=== PATIENT | female | born 1935 | race Two or more races ===

== ENCOUNTER 2017-09-23 09:03 | Inpatient (IN) | payer OTHER, MEDICARE ==
[~2017-09-23] VITALS: Ht 167.6 cm; Wt 88.0 kg
[2017-09-23] VITALS (37 sets, daily range): BP systolic 69–130; BP diastolic 32–86
--- NOTE | 2017-09-23 09:07 | NUR ---
AAOX1, BIB [facility] FOR SOB X 2 HOURS O2 80% ON 2LNC BS 262 IN FIELD. RR IS SLIGHTLY LABORED WITH NAD NOTED. SKIN IS WARM AND DRY. PLACED ON THE MONITOR. WILL CONTINUOUSLY MONITOR THE PATIENT. AWAITING MD FOR EVAL.
--- NOTE | 2017-09-23 09:24 | NUR ---
EKG AT BS
[2017-09-23] MEDS ORDERED: IV NS 0.9% 1,000 ML BAG IV ONE ×3 (09:30→16:30)
[2017-09-23 09:37] LABS: BASOPHILS % (AUTO) 0.1 % (0.0-2.0); HEMATOCRIT 28 % (33-45); HEMOGLOBIN 9.1 g/dL (11.5-14.8); LYMPHOCYTES # (AUTO) 0.9 /CMM (0.8-4.8); LYMPHOCYTES % (AUTO) 5.6 % (20.0-44.0); MEAN CORPUSCULAR HEMOGLOBIN 28 PG (26.0-33.0); MEAN CORPUSCULAR HGB CONC 32 g/dl (31.0-36.0); MEAN CORPUSCULAR VOLUME 88 fL (82-100); MONOCYTES # (AUTO) 0.9 /CMM (0.1-1.30); MONOCYTES % (AUTO) 5.2 % (2.0-12.0); NEUTROPHILS % (AUTO) 89.1 % (43.0-81.0); PLATELET COUNT (AUTO) 266 /CMM (150-450); RDW COEFFICIENT OF VARIATION 18.6 (11.5-15.0); WHITE BLOOD COUNT (AUTO) 16.8 K/uL (4.3-11.0)
[2017-09-23] MEDS ORDERED: PROPOFOL 100 ML ONE (09:42)
[2017-09-23 09:50] LABS: APPEARANCE,URINE Clear (CLEAR); BILIRUBIN,URINE Negative (NEGATIVE); BLOOD, URINE Negative Ery/uL (NEGATIVE); COLOR,URINE Yellow (YELLOW); KETONES,URINE Negative (NEGATIVE); LEUKOCYTE ESTERASE ,URINE Negative (NEGATIVE); NITRITE, URINE Negative (NEGATIVE); PROTEIN,URINE 30 mg/dl (NEGATIVE); UGLUCOSE Negative (NEGATIVE); UROBILINOGEN,URINE 0.2 EU/dL (0.2)
--- NOTE | 2017-09-23 09:50 | NUR ---
VERBAL ORDER FROM DR. MUNOZ FOR ETOMIDATE 20MG TO L HAND G 20 FOR RSI VERBAL ORDER FROM DR. MUNOZ FOR SUCCS 180 MG MG TO L HAND G 20 FOR RSI PT INTUBATED BY DR MUNOZ USING 7.5 ET TUBE WITH 23CM LIP LINE POSITIVE CO2 COLOR CHANGE NOTED WITH BILATERAL BREATH SOUNDS
[2017-09-23] MEDS ORDERED: DoBUTamine 500 MG/250 ML PIGGYBACK IV ONE (10:00)
[2017-09-23] MEDS ORDERED: SUCCINYLCHOLINE CHLORIDE 20 MG/ML VIAL IV ONE ×2 (10:00→15:18)
[2017-09-23] MEDS: PROPOFOL 100 ML IV PRN ×5 (10:00→23:13)
[2017-09-23] MEDS ORDERED: FUROSEMIDE 40 MG/4 ML VIAL IV ONE (10:00)
[2017-09-23] MEDS ORDERED: KETAMINE HCL (500MG/10ML) 50 MG/ML VIAL IV ONE (10:00)
[2017-09-23] MEDS ORDERED: NOREPINEPHRINE 16 MG in IV D5W 500 ML IV PRN ×2 (10:00→16:30)
[2017-09-23] MEDS ORDERED: LEVOFLOXACIN 750 MG /D5W 150ML PIGGYBACK IV ONE (10:00)
[2017-09-23] MEDS ORDERED: ETOMIDATE 2 MG/ML VIAL IV ONE ×2 (10:00→15:18)
[2017-09-23] MEDS ORDERED: FENTANYL CITRAT IV 2,500 MCG in IV NS 0.9% 200 ML IV PRN (10:00)
[2017-09-23 10:02] LABS: INR 1.17 (0.87-1.13)
[2017-09-23 10:03] LABS: BACTERIA,URINE Few /HPF (None Seen); RBC,URINE NONE SEEN /HPF (0-2); SQUAMOUS EPITHELIAL CELL,UR Rare /HPF (None Seen); URINE AMORPHOUS PHOSPHATES Few /HPF (None Seen); WBC,URINE NONE SEEN /HPF (0-3)
[2017-09-23] MEDS ORDERED: FUROSEMIDE 100 MG/10 ML VIAL ONE (10:05)
[2017-09-23 10:21] LABS: TROPONIN I < 0.017 ng/mL (0.00-0.056)
[2017-09-23] MEDS ORDERED: LEVOFLOXACIN 750 MG /D5W 150ML 0 ML IV ONE (10:24)
[2017-09-23 10:27] LABS: ALANINE AMINOTRANSFERASE 19 U/L (12-78); ALBUMIN 2.5 g/dL (3.4-5.0); ALKALINE PHOSPHATASE 90 U/L (46-116); ASPARTATE AMINOTRANSFERASE 23 U/L (15-37); B-TYPE NATRIURETIC PEPTIDE 7427 PG/ML (0-125); BILIRUBIN,DIRECT 0.2 mg/dL (0.0-0.2); BILIRUBIN,TOTAL 0.4 mg/dL (0.2-1.0); CALCIUM, SERUM 8.3 mg/dL (8.5-10.1); CARBON DIOXIDE 30 mmol/L (21-32); CHLORIDE 100 mmol/L (98-107); CREATININE 2.1 mg/dL (0.6-1.3); GLUCOSE 221 mg/dL (74-106); SODIUM SERUM 134 mmol/L (136-145); TOTAL PROTEIN, SERUM 7.2 g/dL (6.4-8.2); UREA NITROGEN, BLOOD 47 mg/dL (7-18)
[2017-09-23 10:30] LABS: POTASSIUM 8.1 mmol/L (3.5-5.1)
[2017-09-23] MEDS ORDERED: ACETAMINOPHEN 650 MG/SUPP.RECT RC ONE ×2 (10:30→11:15)
[2017-09-23] MEDS ORDERED: POTA20TA83 PO ×2 (10:37)
[2017-09-23] MEDS ORDERED: FURO-144 PO (10:37)
[2017-09-23] MEDS ORDERED: DOCU-141 PO (10:37)
[2017-09-23] MEDS ORDERED: METF500T4 PO (10:37)
[2017-09-23] MEDS ORDERED: AMLO5TAB2 PO (10:37)
[2017-09-23] MEDS ORDERED: LEVO100T9 PO (10:37)
[2017-09-23] MEDS ORDERED: CLOP75TA15 PO (10:37)
[2017-09-23] MEDS ORDERED: MULT-447 PO (10:37)
[2017-09-23] MEDS ORDERED: ZINC220C8 PO (10:37)
[2017-09-23] MEDS ORDERED: INSU100V27 SQ (10:37)
[2017-09-23] MEDS ORDERED: AMIN30LI4 PO (10:37)
[2017-09-23] MEDS ORDERED: LOSA100T15 PO (10:37)
[2017-09-23] MEDS ORDERED: MAGN400O6 PO (10:37)
[2017-09-23] MEDS ORDERED: RALO60TA PO (10:37)
[2017-09-23] MEDS ORDERED: BLOO-668 IN (10:37)
[2017-09-23] MEDS ORDERED: METO25TA20 PO (10:37)
[2017-09-23] MEDS ORDERED: ASCO500T9 PO (10:37)
[2017-09-23] MEDS ORDERED: FOLI1TAB16 PO (10:37)
[2017-09-23] MEDS ORDERED: ARGI1POW13 PO (10:37)
[2017-09-23] MEDS ORDERED: ACET-868 PO (10:37)
[2017-09-23] MEDS ORDERED: LINA5TAB PO (10:37)
--- NOTE | 2017-09-23 10:38 | NUR ---
CHUYITA IS SON [phone] CHRISTEN IS GRAND DAUGHTER [phone]
[2017-09-23] MEDS ORDERED: GLYB2.5T4 PO (10:39)
[2017-09-23] MEDS ORDERED: LEVOFLOXACIN 750 MG /D5W 150ML 150 ML IV ONE (10:40)
[2017-09-23] MEDS ORDERED: KETAMINE HCL (500MG/10ML) 50 MG/ML VIAL ONE (10:44)
[2017-09-23 11:37] LABS: ABG BASE EXCESS -1.3 mmol/L; ABG OXYGEN SATURATION 98.6 % (92.0-98.5); ABG PCO2 58.8 mmHg (35.0-45.0); ABG PH 7.266 (7.350-7.450); ABG PO2 182.3 mmHg (75.0-100.0); AaDO2 180.8 mmHg; COHb 0.3 % (0.5-1.5); MetHb 0.6 % (0.0-1.5); O2Hb 97.7 % (94.0-97.0); PEEP,BG 2 cm H2O; SITE, ABG Left Radial; VENT MODE, BG A/C; VT, ABG 450 mL
[2017-09-23 11:50] LABS: CALCIUM, SERUM 8.1 mg/dL (8.5-10.1); CARBON DIOXIDE 26 mmol/L (21-32); CHLORIDE 101 mmol/L (98-107); CREATININE 2.1 mg/dL (0.6-1.3); GLUCOSE 233 mg/dL (74-106); SODIUM SERUM 133 mmol/L (136-145); UREA NITROGEN, BLOOD 43 mg/dL (7-18)
--- NOTE | 2017-09-23 11:52 | NUR ---
INCREASED RR FROM [address] PAEZ'S ORDER
[2017-09-23 11:56] LABS: POTASSIUM 6.4 mmol/L (3.5-5.1)
--- NOTE | 2017-09-23 13:01 | NUR ---
Patient is resting comfortably in bed with eyes closed. Easily aroused. VSS
[2017-09-23] MEDS ORDERED: DEXTROSE 50%-WATER 50 ML DISP.SYRIN IVP ONE (13:30)
[2017-09-23] MEDS ORDERED: FAMOTIDINE/PF INJ 20 MG/2 ML VIAL IV ONE (13:30)
[2017-09-23] MEDS ORDERED: ALBUTEROL FS 2.5 MG/0.5 ML VIAL.NEB NEB ONE (13:30)
[2017-09-23] MEDS ORDERED: INSULIN REGULAR, HUMAN 100 UNIT/ML 10 ML VIAL IV ONE (13:30)
[2017-09-23] MEDS ORDERED: HEPARIN SODIUM, PORCINE 5000 UNITS/1 ML VIAL SQ SCH (13:30)
--- NOTE | 2017-09-23 13:33 | NUR ---
REPORT GIVEN TO CURTIS NATION FOR [facility] ICU 261
[2017-09-23] MEDS ORDERED: DEXTROSE 50%-WATER 50 ML DISP.SYRIN ONE (13:35)
[2017-09-23] MEDS ORDERED: INSULIN REGULAR, HUMAN 100 UNIT/ML 10 ML VIAL ONE (13:37)
[2017-09-23] MEDS ORDERED: LEVOFLOXACIN 500 MG /D5W 100ML 500 MG in PREMIX 1 EA IV SCH (14:00)
[2017-09-23] MEDS ORDERED: ONDANSETRON HCL/PF 4 MG/2 ML VIAL IVP PRN (14:00)
[2017-09-23] MEDS ORDERED: ENOXAPARIN SODIUM 40 MG/0.4 ML DISP.SYRIN SQ SCH (14:00)
[2017-09-23] MEDS ORDERED: HYDROCODONE/APAP 5/325MG 1 EACH TABLET PO PRN (14:00)
[2017-09-23] MEDS ORDERED: FUROSEMIDE 40 MG/4 ML VIAL IV SCH (14:00)
[2017-09-23] MEDS ORDERED: MAG HYDROX/AL HYDROX/SIMETH 30 ML UDC PO PRN (14:00)
[2017-09-23] MEDS ORDERED: ACETAMINOPHEN 325 MG TABLET PO PRN (14:00)
[2017-09-23] MEDS ORDERED: ZOLPIDEM TARTRATE 5 MG TABLET PO PRN (14:00)
[2017-09-23] MEDS ORDERED: SODIUM POLYSTYRENE SULFONATE 15 G/60 ML BOTTLE PO ONE (14:00)
[2017-09-23] MEDS ORDERED: DEXTROSE 50%-WATER 50 ML DISP.SYRIN IV PRN (14:00)
[2017-09-23] MEDS ORDERED: Z GUARD REMEDY 2 OZ OINT TP PRN (14:00)
[2017-09-23] MEDS ORDERED: MAGNESIUM HYDROXIDE 30 ML UDC PO PRN ×2 (14:00)
[2017-09-23] MEDS ORDERED: ALBUTEROL FS 2.5 MG/3 ML VIAL.NEB NEB PRN (14:00)
--- NOTE | 2017-09-23 14:00 | NUR ---
81 YO FEMALE ADMITTED VIA GURNEY FROM ER TO RM 261. DX HYPERCARBIC REPIR FAILURE WITH SHOCK .ON VOL VENT VIA ETT. WILL GET ABG. HYPERKALEMIA-WILL RX PER MDS AND OBTAIN REPEAT SERUM K. ETIOLOGY OF SHOCK UNCLEAR. ON LOW DOSE LEVOPHED AND ALSO DIPRIVAN GTT. DR PAEZ TO CONSULT AND DR FANG TO SEE.
--- NOTE | 2017-09-23 14:32 | NUR ---
D/W BRIAN FANG AND JEANNINE-NO NGT ABLE TO BE PLACED IN ER DUE TO EPISTAXIS THEREFORE UNABLE TO GIVE KAYEXALATE OR ANY OTHER PO MEDS
--- NOTE | 2017-09-23 14:50 | NUR ---
BRIAN PAEZ AND LEONCIO IN TO R/V. SEE NEW ORDERS. WILL GIVE 2.6 LITER OF NS AND GET ID CONSULT. ALL MEDS R/V'D WITH MD'S AND AMENDED
[2017-09-23 14:51] LABS: ABG BASE EXCESS -1.6 mmol/L; ABG OXYGEN SATURATION 97.3 % (92.0-98.5); ABG PCO2 40.9 mmHg (35.0-45.0); ABG PH 7.376 (7.350-7.450); ABG PO2 103.3 mmHg (75.0-100.0); AaDO2 134.9 mmHg; COHb 0.2 % (0.5-1.5); MetHb 0.4 % (0.0-1.5); O2Hb 96.7 % (94.0-97.0); PEEP,BG 5 cm H2O; SITE, ABG Left Radial; VENT MODE, BG A/C; VT, ABG 450 mL
[2017-09-23] MEDS ORDERED: DOSE PER PHARMACY (MD SPECIFY MEDICATION) 1 EA XX PRN (15:00)
[2017-09-23] MEDS ORDERED: PROPOFOL 100 ML IV PRN (15:00)
[2017-09-23] MEDS ORDERED: FEE PK DOSING 1 MIN EA MC ONE (15:07)
[2017-09-23] MEDS ORDERED: FEE EMEERGENCY 1 MIN EA MC ONE (15:18)
[2017-09-23] MEDS: methylPREDNISolone SOD SUCC 125 MG/2ML VIAL IV SCH ×2 (15:27→21:21)
[2017-09-23] MEDS: PANTOPRAZOLE 40 MG VIAL IV SCH (15:27)
--- NOTE | 2017-09-23 15:34 | NUR ---
LENS MATCHER NOTE 1410: Admitted 81 y/o female patient from ER for CHF. with ETT to vent, tolerated settings, no respiratory distress noted at this time. On Diprivan, sedated at 40mcg. AMY PICC intact. On Levo @ 4mcg. SBP >90 now, will titrate as ordered. Corral cath intact, noted with clear yellow urine drained to BSD. Skin assessment done, noted with BUE discolorations, sacral decub, both heels redness, left underbreast redness, pictures taken and attached to chart. Noted with BLE edema +3, elevated with pillows. 1430: Family at bedside, Dr. Goodson in the unit spoke to family and made aware re: the POC.
[2017-09-23] MEDS ORDERED: VANCOMYCIN 1 GM in IV D5W 250 ML IV ONE (16:00)
[2017-09-23] MEDS: IPRATROPIUM NEB FS 0.5 MG/2.5 ML AMPUL.NEB NEB SCH ×4 (16:21→23:56)
[2017-09-23] MEDS: HEPARIN SODIUM, PORCINE 5000 UNITS/1 ML VIAL SQ SCH (16:41)
[2017-09-23] MEDS: IV D5/ 0.9% NACL 1,000 ML IV PRN (16:56)
[2017-09-23] MEDS ORDERED: AMLODIPINE BESYLATE 5 MG TABLET PO SCH (17:00)
[2017-09-23] MEDS ORDERED: METOPROLOL TARTRATE 25 MG TABLET PO SCH (17:00)
[2017-09-23] MEDS: BLOOD SUGAR DIAGNOSTIC 1 EACH STRIP IN SCH (17:00)
[2017-09-23 17:03] LABS: CALCIUM, SERUM 7.6 mg/dL (8.5-10.1); CARBON DIOXIDE 24 mmol/L (21-32); CHLORIDE 102 mmol/L (98-107); GLUCOSE 210 mg/dL (74-106); POTASSIUM 5.2 mmol/L (3.5-5.1); SODIUM SERUM 136 mmol/L (136-145); UREA NITROGEN, BLOOD 46 mg/dL (7-18)
[2017-09-23 17:08] LABS: CHOLESTEROL 111 mg/dL (<200); HDL CHOLESTEROL 23 mg/dL (40-60); LDL 65 mg/dL (0-99); TRIGLYCERIDES 194 mg/dL (30-150)
[2017-09-23] MEDS: INSULIN REGULAR, HUMAN 100 UNIT/ML 3 ML VIAL SQ PRN (17:13)
--- NOTE | 2017-09-23 17:15 | NUR ---
LABS FROM 1635 INCLUDING LACTIC ACID 2.5 AND SERUM POTASSIUM 5.2 R/V'D W DR FANG AND JOSSIE ENRIQUEZ. AWARE THAT WE WERE ABLE TO PLAVE OROGASTRIC TUBE. ANTIBIOTICS READJUSTED BY ID. FAMILY IN TO VISIT
[2017-09-23] MEDS: LEVOFLOXACIN 750 MG /D5W 150ML 150 ML IV SCH (18:16)
[2017-09-23] MEDS ORDERED: MEROPENEM 1 G VIAL IV ONE (21:39)
[2017-09-23] MEDS: MEROPENEM 1 G in IV NS 0.9% 100 ML IV SCH (21:42)
--- NOTE | 2017-09-23 22:00 | NUR ---
UNIT EDUCATOR - REC'D PT. W/DIPRIVAN GTT. AT 30 MCG/KG/MIN. PT. AWAKENS EASILY TO SEDATION VACATION. BNP JUST DRAWN VIA RUE PICC LINE. ALL PORTS ARE PATENT TO FLUSH. REC'D PT. ON LEVOPHED GTT. AT 2 MCG/MIN. PT.HAS OGT/CLAMPED. GOOD PLACEMENT AUSC. RT.WRIST IV REMOVED. NOT FLUSHING WELL. PT.IS INTUBATED W/VENT SETTINGS AT AC-18,TV-450, 40% & PEEP5. HEART MONITOR SHOWS PT.IS AV PACING INTERMITTENTLY W/V-PACING. CONT. POC.
--- NOTE | 2017-09-23 22:00 | NUR ---
SOAP SLABBER - REC'D PT. ON DIPRIVAN GTT. AT 60 MCG/KG/MIN. SEDATION VACATION DONE W/CHANGING OF BOTTLES. PT. STARTS TO PULL ON BILAT.SOFT WRIST RESTRAINTS & BITING ETT. VENT SETTINGS AT AC 18,TV-500-40%-PEEP-5. PT.HAS HAD HIGH RESIDUALS UPON START OF SHIFT VIA RT.NARE NGT. AT 20:49=[id number] & AT 22:14=117 CC. GASTRIC CONTENTS RESEMBLE NULYTELY THAT WAS ADM. ON PRIOR SHIFT. UPON ENDORSEMENT, I WAS TO FINISH NULYTELY X 3L. RN ATTEMPTED TO GIVE NULYTELY, BUT UPON DISCUSSION W/INTERACTIVE MEDIA MARKETING DIRECTOR-HELD UNTIL TALK W/MD. PT.HAS RECTAL TUBE THAT IS EXPELLING WELL. LAND CATH TO GRAVITY HAS GOOD UOP. COOLING MEASURES STARTED-100.0 ORAL TEMP AT 20:00. ALL PULSES STRONG & PALPABLE X 4 EXT. OBESE. LUE MIDLINE HAS 2 PORTS INFUSING 0.9%NS AT TKO W/ ABX'S & DIPRIVAN GTT. VSS. CONT.POC. Addendum: 09/24/17 at 0335 by MARCIN SANTOYO RN PLEASE DISREGARD ABOVE NOTE WILL REASSESS.
[2017-09-23 22:54] LABS: CALCIUM, SERUM 7.9 mg/dL (8.5-10.1); CARBON DIOXIDE 27 mmol/L (21-32); CHLORIDE 101 mmol/L (98-107); CREATININE 2.1 mg/dL (0.6-1.3); GLUCOSE 282 mg/dL (74-106); POTASSIUM 5.3 mmol/L (3.5-5.1); SODIUM SERUM 135 mmol/L (136-145); UREA NITROGEN, BLOOD 44 mg/dL (7-18)
[2017-09-24] VITALS (49 sets, daily range): BP systolic 88–124; BP diastolic 43–85
[2017-09-24] MEDS: INSULIN REGULAR, HUMAN 100 UNIT/ML 3 ML VIAL SQ PRN ×4 (00:47→17:32)
[2017-09-24] MEDS: BLOOD SUGAR DIAGNOSTIC 1 EACH STRIP IN SCH ×5 (00:57→21:29)
[2017-09-24] MEDS: HEPARIN SODIUM, PORCINE 5000 UNITS/1 ML VIAL SQ SCH ×3 (00:59→17:35)
--- NOTE | 2017-09-24 01:00 | NUR ---
MRB ENGINEER - K+=5.3 AT 22:00 PM. TROPONIN AT 01:00AM = 0.017. BS AT MN = #[phone]. PT. COVERED VIA S/S. LAND CATH TO GRAVITY-GOOD UOP. PT.HAS BILAT. SOFT WRIST RESTRAINTS PER SAFETY PROTOCOL. [id number] AT 100CC/HR, LEVO AT 2 MCG/MIN. DIPRIVAN REMAINS AT 30MCG/KG/MIN. CONT.POC.
[2017-09-24] MEDS: IPRATROPIUM NEB FS 0.5 MG/2.5 ML AMPUL.NEB NEB SCH ×5 (03:46→19:42)
[2017-09-24] MEDS: PROPOFOL 100 ML IV PRN ×3 (04:35→18:14)
[2017-09-24] MEDS: methylPREDNISolone SOD SUCC 125 MG/2ML VIAL IV SCH ×3 (04:35→21:29)
--- NOTE | 2017-09-24 05:00 | NUR ---
MANAGER OFFICE - AM BS=#[id number]-PT.COVERED W/12 U/SQ. AM LABS DRAWN FROM PICC LINE & SENT AT 6AM. LEVOPHED GTT. OFF AT 4AM. REPORT ENDORSED TO RIOS-QUALITY ASSURANCE TECHNICIAN. COMPLETE BEDBATH ADM. W/2 RN ASSIST. CONT.POC.
[2017-09-24 06:33] LABS: HEMATOCRIT 23 % (33-45); HEMOGLOBIN 7.5 g/dL (11.5-14.8); LYMPHOCYTES # (AUTO) 0.5 /CMM (0.8-4.8); LYMPHOCYTES % (AUTO) 6.5 % (20.0-44.0); MEAN CORPUSCULAR HEMOGLOBIN 28 PG (26.0-33.0); MEAN CORPUSCULAR HGB CONC 33 g/dl (31.0-36.0); MEAN CORPUSCULAR VOLUME 86 fL (82-100); MONOCYTES # (AUTO) 0.3 /CMM (0.1-1.30); MONOCYTES % (AUTO) 3.4 % (2.0-12.0); NEUTROPHILS % (AUTO) 90.1 % (43.0-81.0); PLATELET COUNT (AUTO) 156 /CMM (150-450); RDW COEFFICIENT OF VARIATION 18.5 (11.5-15.0); RED BLOOD CELL COUNT(AUTO) 2.66 MIL/uL (4.0-5.2); WHITE BLOOD COUNT (AUTO) 7.8 K/uL (4.3-11.0)
[2017-09-24 07:02] LABS: CALCIUM, SERUM 7.8 mg/dL (8.5-10.1); CARBON DIOXIDE 24 mmol/L (21-32); CHLORIDE 102 mmol/L (98-107); CREATININE 1.9 mg/dL (0.6-1.3); GLUCOSE 313 mg/dL (74-106); MAGNESIUM 1.4 mg/dL (1.8-2.4); PHOSPHORUS 2.9 mg/dL (2.5-4.9); POTASSIUM 4.6 mmol/L (3.5-5.1); SODIUM SERUM 137 mmol/L (136-145); UREA NITROGEN, BLOOD 42 mg/dL (7-18)
[2017-09-24] MEDS: IV D5/ 0.9% NACL 1,000 ML IV PRN (07:14)
[2017-09-24] MEDS ORDERED: LEVOTHYROXINE SODIUM 100 MCG TABLET PO SCH (07:30)
--- NOTE | 2017-09-24 07:30 | NUR ---
LABS R/V'S WITHOUT REPOTABLE VALUES. WILL D/W MDS CBC/HEPARIN DOSING. POTASSIUM NOW WNL. OFF OF PRESSORS.
--- NOTE | 2017-09-24 07:53 | NUR ---
PT. RECEIVED ON VENT SUPPORT VIA ET TUBE WITH PARAMETERS BELLOW ORDER: AC 18 VT 450 ML FIO2 40% PEEP +5 BREATH SOUNDS CLEAR BILATERAL. VENT PLUGGED INTO REDOUTLET WITH ALARMS ON AND FUNCTIONING. KERWIN@ HOB Addendum: 09/24/17 at 0755 by BRIAN KNIGHT RT Amended: Links added.
[2017-09-24] MEDS ORDERED: ZINC SULFATE 220 MG CAPSULE PO SCH (09:00)
[2017-09-24] MEDS ORDERED: DOCUSATE SODIUM 100 MG CAPSULE PO SCH (09:00)
[2017-09-24] MEDS ORDERED: CLOPIDOGREL BISULFATE 75 MG TABLET PO SCH (09:00)
[2017-09-24] MEDS ORDERED: FOLIC ACID 1 MG TABLET PO SCH (09:00)
[2017-09-24 09:09] LABS: ABG BASE EXCESS -0.1 mmol/L; ABG PCO2 33.2 mmHg (35.0-45.0); ABG PH 7.464 (7.350-7.450); ABG PO2 151.1 mmHg (75.0-100.0); AaDO2 95.9 mmHg; COHb 0.3 % (0.5-1.5); MetHb 0.6 % (0.0-1.5); O2Hb 97.1 % (94.0-97.0); PEEP,BG 5 cm H2O; SITE, ABG Right Radial; VT, ABG 450 mL
--- NOTE | 2017-09-24 09:14 | NUR ---
DECREASED FIO2 FROM 40% TO 30% DUE TO PAO2 151 / SPO2 100% Addendum: 09/24/17 at 0914 by BRIAN KNIGHT RT Amended: Links added.
[2017-09-24] MEDS ORDERED: DEXTROSE 50%-WATER 50 ML DISP.SYRIN IV PRN (09:30)
[2017-09-24] MEDS ORDERED: BLOOD SUGAR DIAGNOSTIC 1 EACH STRIP IN SCH ×2 (09:30→13:00)
[2017-09-24] MEDS ORDERED: INSULIN REGULAR, HUMAN 100 UNIT/ML 3 ML VIAL SQ PRN (09:30)
--- NOTE | 2017-09-24 09:30 | NUR ---
D/W DR PAEZ. NO NEW ORDERS
[2017-09-24] MEDS: MEROPENEM 1 G in IV NS 0.9% 100 ML IV SCH ×2 (09:57→21:29)
--- NOTE | 2017-09-24 10:00 | NUR ---
REMOTELY R/V'D BY DR FANG-FOR MAGNESIUM REPLACEMENT AND CHANGE IN GLUCOSE COVERAGE AND IVF TO NS
[2017-09-24] MEDS: IV NS 0.9% 1,000 ML IV PRN (10:20)
[2017-09-24] MEDS: Magnesium 1GM/D5W 100ML PREMIX 100 ML IV SCH ×3 (10:53→12:47)
--- NOTE | 2017-09-24 11:00 | NUR ---
FAMILY IN. SEDATION DOWN TO DIPRIVAN 10 MCG/KG/MIN AND PT FULLY AWAKE AND MOVES ALL FOUR EXTREM TO COMMAND. MOUTHS WORDS. COUGHING AND TRYING TO SELF EXTUBATE. FAMILY REASSURED PT AND AGREES WITH PLAN TO RE SEDATE NO WEAN PLAN FOR TODAY
--- NOTE | 2017-09-24 11:30 | NUR ---
SEEN BY NEPHROLOGY-URINES SENT ORDERED
[2017-09-24 12:33] LABS: APPEARANCE,URINE SL CLOUDY (CLEAR); BILIRUBIN,URINE NEGATIVE (NEGATIVE); BLOOD, URINE TRACE Ery/uL (NEGATIVE); COLOR,URINE YELLOW (YELLOW); KETONES,URINE NEGATIVE (NEGATIVE); LEUKOCYTE ESTERASE ,URINE NEGATIVE (NEGATIVE); NITRITE, URINE NEGATIVE (NEGATIVE); PH,URINE 5.5 (5.0-8.0); PROTEIN,URINE NEGATIVE (NEGATIVE); UGLUCOSE NEGATIVE (NEGATIVE); UROBILINOGEN,URINE 0.2 EU/dL (0.2)
[2017-09-24 13:02] LABS: CREATININE, URINE 26.5 MG/DL (30.0-125.0); URINE TOTAL PROTEIN 18.8 mg/dL (0-11.9)
[2017-09-24] MEDS: PANTOPRAZOLE 40 MG VIAL IV SCH (13:04)
[2017-09-24 13:23] LABS: BACTERIA,URINE Few /HPF (None Seen); RBC,URINE 0-2 /HPF (0-2); SQUAMOUS EPITHELIAL CELL,UR Few /HPF (None Seen); WBC,URINE 0-2 /HPF (0-3)
[2017-09-24 14:20] LABS: EOSINOPHIL,URINE None Seen
[2017-09-24] MEDS: VANCOMYCIN 1 GM in IV NS 0.9% 250 ML IV SCH (15:53)
[2017-09-24] MEDS: LEVOTHYROXINE SODIUM 125 MCG TABLET PO SCH (15:53)
--- NOTE | 2017-09-24 16:00 | NUR ---
ONGOING FAMILY LIAISON. VSS, AFEBRILE. URINE OUTPUT APPROX 100 MLS/HR. FSBS BETTER CONTROL ON Q 4 H COVERAGE
[2017-09-24] MEDS ORDERED: MUPIROCIN OINT 2% 22 GM TUBE SCH (17:00)
--- NOTE | 2017-09-24 20:53 | NUR ---
received pt from day shift, sedated on Diprivan at 30mcg, V pacing, intubated, on the vent, lungs congested, no edema, OG clamped, f/c OK output, restraints on, v/s stable, no pain, pt turned and repositioned.
[2017-09-24] MEDS: MUPIROCIN OINT 2% 22 GM TUBE SCH (21:33)
[2017-09-25] VITALS (35 sets, daily range): BP systolic 11–147; BP diastolic 50–91
[2017-09-25] MEDS: PROPOFOL 100 ML IV PRN ×4 (00:21→20:08)
[2017-09-25] MEDS: IPRATROPIUM NEB FS 0.5 MG/2.5 ML AMPUL.NEB NEB SCH ×6 (00:27→19:39)
--- NOTE | 2017-09-25 00:42 | NUR ---
pt is resting in the bed, sedated on Diprivan at 30mcg, v/s stable, no pain, pt turned and repositioned q2hrs.
[2017-09-25] MEDS: HEPARIN SODIUM, PORCINE 5000 UNITS/1 ML VIAL SQ SCH ×3 (00:51→17:55)
[2017-09-25] MEDS: IV NS 0.9% 1,000 ML IV PRN (00:51)
[2017-09-25] MEDS: BLOOD SUGAR DIAGNOSTIC 1 EACH STRIP IN SCH ×6 (00:51→20:50)
--- NOTE | 2017-09-25 04:00 | NUR ---
pt is resting in the bed, no acute distress overnight, sedated on Diprivan at 30mcg, v/s stable, no pain, good urine output, pt cleaned, changed and repositioned q2hrs.
[2017-09-25] MEDS: methylPREDNISolone SOD SUCC 125 MG/2ML VIAL IV SCH ×3 (04:12→20:46)
[2017-09-25] MEDS: INSULIN REGULAR, HUMAN 100 UNIT/ML 3 ML VIAL SQ PRN ×5 (04:21→20:52)
[2017-09-25 05:21] LABS: HEMATOCRIT 25 % (33-45); HEMOGLOBIN 8.3 g/dL (11.5-14.8); LYMPHOCYTES # (AUTO) 0.7 /CMM (0.8-4.8); LYMPHOCYTES % (AUTO) 8.1 % (20.0-44.0); MEAN CORPUSCULAR HEMOGLOBIN 29 PG (26.0-33.0); MEAN CORPUSCULAR HGB CONC 33 g/dl (31.0-36.0); MEAN CORPUSCULAR VOLUME 86 fL (82-100); MONOCYTES # (AUTO) 0.3 /CMM (0.1-1.30); MONOCYTES % (AUTO) 3.2 % (2.0-12.0); NEUTROPHILS # (AUTO) 8.2 /CMM (1.8-8.9); NEUTROPHILS % (AUTO) 88.7 % (43.0-81.0); PLATELET COUNT (AUTO) 161 /CMM (150-450); RDW COEFFICIENT OF VARIATION 19.3 (11.5-15.0); RED BLOOD CELL COUNT(AUTO) 2.91 MIL/uL (4.0-5.2); WHITE BLOOD COUNT (AUTO) 9.2 K/uL (4.3-11.0)
[2017-09-25 05:49] LABS: ALANINE AMINOTRANSFERASE 14 U/L (12-78); ALBUMIN 1.9 g/dL (3.4-5.0); ALKALINE PHOSPHATASE 69 U/L (46-116); ASPARTATE AMINOTRANSFERASE 16 U/L (15-37); BILIRUBIN,TOTAL 0.3 mg/dL (0.2-1.0); CALCIUM, SERUM 8.3 mg/dL (8.5-10.1); CARBON DIOXIDE 25 mmol/L (21-32); CHLORIDE 104 mmol/L (98-107); CREATININE 1.4 mg/dL (0.6-1.3); GLUCOSE 180 mg/dL (74-106); PHOSPHORUS 3.2 mg/dL (2.5-4.9); POTASSIUM 3.8 mmol/L (3.5-5.1); SODIUM SERUM 140 mmol/L (136-145); UREA NITROGEN, BLOOD 37 mg/dL (7-18)
--- NOTE | 2017-09-25 07:15 | NUR ---
SHOP WELDER NOTES RECEIVED PATIENT SEDATED , RESPONSIVE TO PAIN STIMULI , NOT IN ACUTE DISTRESS , RESPIRATIONS EVEN AND UNLABORED WITH SPO2 OF 100% VIA MECHANICAL VENT SETTINGS ORDERED , V PACING 70 ON BEDSIDE MONITOR , OGT CLAMPED , FC DRAINING VIA GRAVITY , AMY PICC LINE WITH DIPRIVAN @ 30MCG/KG/MIN , NS @ 75ML/HR INFUSING WELL , ALL NEEDS ATTENDED ,BED ON LOW AND LOCKED POSITION , SIDE RAILS X2 , HON @ 35 , WILL CONTINUE TO MONITOR
--- NOTE | 2017-09-25 08:00 | NUR ---
CLINICAL PSYCHOLOGY PROFESSOR NOTES PATIENT OFF SEDATION , OPENS EYES , ABLE TO FOLLOW SIMPLE COMMANDS , TOLERATING CURRENT VENT SETTINGS WITH SPO2 OF 100% , BILATERAL SOFT WRIST RESTRAINS IN PLACE , WILL CONTINUE TO MONITOR , RT AT BEDSIDE FOR WEANING TRIAL ORDERED
[2017-09-25] MEDS: LEVOTHYROXINE SODIUM 125 MCG TABLET PO SCH (08:14)
[2017-09-25] MEDS: MEROPENEM 1 G in IV NS 0.9% 100 ML IV SCH ×2 (08:15→20:46)
[2017-09-25] MEDS: MUPIROCIN OINT 2% 22 GM TUBE TP SCH ×2 (08:15→20:50)
[2017-09-25] MEDS: MUPIROCIN OINT 2% 22 GM TUBE SCH ×2 (08:15→20:48)
--- NOTE | 2017-09-25 08:46 | NUR ---
WEANING TRIAL ORDER: PT. IS AWAKE AND FOLLOW COMMANDS. PT CAN LEFT HER HEAD WITHOUT METAL MACHINE SETTER. SIMV 4 PS 12 FIO2 30% PEEP 5 SPO2 98% HR 80 RR 24- 26 Addendum: 09/25/17 at 0848 by BRIAN KNIGHT RT Amended: Links added.
--- NOTE | 2017-09-25 09:00 | NUR ---
FARMER VEGETABLE NOTES SEEN AND EVALUATED BY DR PAEZ , DISCUSSED PATIENT IS OFF SEDATION @ 0800 , ABLE TO FOLLOW SIMPLE COMMANDS , AWAKE , TOLERATING SIMV MODE , AFEBRILE ,V/S STABLE , NO S/S OF DISTRESS , PER MD TO ABG @ 1000 , WILL RE ASSESS PATIENT IN AFTERNOON FOR POSSIBLE EXTUBATION
--- NOTE | 2017-09-25 09:12 | NUR ---
WOUND CARE CONSULT: PT NOT TURNED FOR SKIN ASSESSMENT AT THIS TIME DUE TO WEANING TRIAL IN PROGRESS. PT ON FIRST STEP MATTRESS. ALL SKIN PROTECTION MEASURES IN PLACE. WILL SEE PT PT CONDITION PERMITS. MD IN AGREEMENT WITH PLAN OF CARE.
[2017-09-25 10:24] LABS: ABG BASE EXCESS -2.7 mmol/L; ABG OXYGEN SATURATION 95.3 % (92.0-98.5); ABG PCO2 36.8 mmHg (35.0-45.0); ABG PH 7.391 (7.350-7.450); ABG PO2 91.9 mmHg (75.0-100.0); AaDO2 78.8 mmHg; COHb 0.2 % (0.5-1.5); MetHb 0.5 % (0.0-1.5); O2Hb 94.6 % (94.0-97.0); PEEP,BG 5 cm H2O; SITE, ABG Right Brachial; VENT MODE, BG SIMV 4 / PS 12; VT, ABG 450 mL
--- NOTE | 2017-09-25 11:59 | NUR ---
ADVERTISING INTERNSHIP NOTES SPOKE WITH JOSE WEI , DISCUSSED PATIENT IS NPO / NO FEEDING , RECEIVED AN ORDER TO DC IVF , PT IS DIABETIC , PER MD START PF ON D5 1/2 NS @ 30ML/HR , ORDERS CARRIED OUT
--- NOTE | 2017-09-25 12:02 | NUR ---
BACK TO AC 18, 450, 30%, PEEP 5 DUE TO 45 TO 49 RR Addendum: 09/25/17 at 1203 by BRIAN KNIGHT RT Amended: Links added.
[2017-09-25] MEDS: FUROSEMIDE 40 MG/4 ML VIAL IV SCH ×2 (12:15→17:48)
[2017-09-25] MEDS: IV D5/0.45 NACL 1,000 ML IV PRN (12:15)
--- NOTE | 2017-09-25 12:18 | NUR ---
HIP HOP ARTIST NOTES PATIENT AWAKE , ABLE TO FOLLOW SIMPLE COMMANDS WHILE OFF SEDATION , PATIENT PLACED BACK TO AC MODE DUE TO DISTRESS , DIPRIVAN RESTARTED @ 5MCG/KG/MIN , WILL CONTINUE TO MONITOR
--- NOTE | 2017-09-25 12:35 | NUR ---
WOUND CARE CONSULT: PT PRESENTS WITH FRAGILE SCAR TO SACRAL AREA AND LEFT BREAST FOLD REDNESS, PRESENT ON ADMISSION. RECOMMENDATIONS MADE FOR SKIN PROTECTION. DISCUSSED WITH NURSING STAFF. PT ON FIRST STEP MATTRESS. WILL SEE PRN. LLANOS IN AGREEMENT WITH PLAN OF CARE. Addendum: 09/25/17 at 1237 by JOAN PICKETT WNDNU Amended: Links added.
[2017-09-25] MEDS: PANTOPRAZOLE 40 MG VIAL IV SCH (15:55)
[2017-09-25] MEDS: VANCOMYCIN 1 GM in IV NS 0.9% 250 ML IV SCH (17:47)
[2017-09-25] MEDS: LEVOFLOXACIN 750 MG /D5W 150ML 150 ML IV SCH (19:03)
--- NOTE | 2017-09-25 20:00 | NUR ---
received pt from day shift, sedates on Diprivan at 30mcg, V pacing, on the vent, lungs congested, some non pitting edema, OG clamped, f/c good output, restraints on, v/s stable, no pain, pt turned and repositioned.
[2017-09-26] VITALS (38 sets, daily range): BP systolic 97–147; BP diastolic 51–77
[2017-09-26] MEDS: IPRATROPIUM NEB FS 0.5 MG/2.5 ML AMPUL.NEB NEB SCH ×8 (00:14→23:55)
[2017-09-26] MEDS: HEPARIN SODIUM, PORCINE 5000 UNITS/1 ML VIAL SQ SCH ×3 (00:19→16:29)
[2017-09-26] MEDS: INSULIN REGULAR, HUMAN 100 UNIT/ML 3 ML VIAL SQ PRN ×5 (00:20→21:47)
[2017-09-26] MEDS: BLOOD SUGAR DIAGNOSTIC 1 EACH STRIP IN SCH ×6 (00:21→21:44)
--- NOTE | 2017-09-26 00:54 | NUR ---
pt is resting in the bed, sedated, v/s stable, no pain, pt turned and repositioned q2hrs.
[2017-09-26] MEDS: PROPOFOL 100 ML IV PRN ×3 (01:41→21:05)
[2017-09-26] MEDS: methylPREDNISolone SOD SUCC 125 MG/2ML VIAL IV SCH ×3 (04:21→21:05)
--- NOTE | 2017-09-26 04:47 | NUR ---
pt is resting in the bed, no acute distress overnight, sedated, v/s stable, no pain, good urine output, pt cleaned, changed and repositioned q2hrs.
[2017-09-26 05:25] LABS: CALCIUM, SERUM 8.1 mg/dL (8.5-10.1); CARBON DIOXIDE 29 mmol/L (21-32); CHLORIDE 105 mmol/L (98-107); CREATININE 1.5 mg/dL (0.6-1.3); GLUCOSE 141 mg/dL (74-106); POTASSIUM 3.1 mmol/L (3.5-5.1); SODIUM SERUM 142 mmol/L (136-145); UREA NITROGEN, BLOOD 38 mg/dL (7-18)
--- NOTE | 2017-09-26 07:15 | NUR ---
MAINTENANCE EQUIPMENT OPERATOR NOTES RECEIVED PATIENT SEDATED , RESPONSIVE TO PAIN STIMULI , NOT IN ACUTE DISTRESS , RESPIRATIONS EVEN AND UNLABORED WITH SPO2 OF 100% VIA MECHANICAL VENT SETTINGS ORDERED , V PACING 80 ON BEDSIDE MONITOR , OGT CLAMPED , FC DRAINING VIA GRAVITY WITH CLEAT YELLOW URINE , AMY PICC LINE WITH DIPRIVAN @ 30MCG/KG/MIN , D5 1/2 NS @ 30ML/HR INFUSING WELL , BILATERAL SOFT WRIST RESTRAINTS IN PLACE , ALL NEEDS ATTENDED ,BED ON LOW AND LOCKED POSITION , SIDE RAILS X2 , HOB @ 35 , WILL CONTINUE TO MONITOR
[2017-09-26] MEDS: LEVOTHYROXINE SODIUM 125 MCG TABLET PO SCH (08:47)
[2017-09-26] MEDS: FUROSEMIDE 40 MG/4 ML VIAL IV SCH ×2 (08:47→16:35)
[2017-09-26] MEDS: MUPIROCIN OINT 2% 22 GM TUBE SCH ×2 (08:50→21:06)
--- NOTE | 2017-09-26 08:50 | NUR ---
MANAGER CASE MANAGEMENT NOTES SEEN AND EVALUATED BY DR PAEZ DISCUSSED LABS , CHEST XRAY , CURRENT V/S, PATIENT IS AWAKE , ABLE TO FOLLOW SIMPLE COMMANDS, OFF SEDATION , TOLERATING CURRENT VENT SETTINGS , PER MD CHANGE VENT SETTINGS TO CPAP MODE ORDERED , ABG @ 1400 , ORDERS CARRIED OUT
[2017-09-26] MEDS: MUPIROCIN OINT 2% 22 GM TUBE TP SCH ×2 (08:51→21:00)
--- NOTE | 2017-09-26 09:00 | NUR ---
DRIVING INSTRUCTOR NOTES SEEN AND EVALUATED BY DR WEI , DISCUSSED PATIENT V/S , CHEST XRAY , LABS , AFEBRILE , WITH GOOD URINE OUTPUT , VERIFIED LASIX 40MG BID ORDER BUN 38 AND CREATININE 1.5 , PER MD OK TO GIVE , REPLACED POTASSIUM WITH 40 MEQ KCL IV , AND ORDER STAT MAGNESIUM AND PHOSPHORUS LEVEL TODAY , ORDERS CARRIED OUT Addendum: 09/26/17 at 1021 by LIZZETH GUERRIER RN NOTIFIED MAGNESIUM LEVEL OF 1.7 , PER MD ORDER 2GM OF MAGNESIUM REPLACEMENT , ORDERS CARRIED OUT
[2017-09-26] MEDS: MEROPENEM 1 G in IV NS 0.9% 100 ML IV SCH ×2 (09:18→21:05)
[2017-09-26 10:02] LABS: MAGNESIUM 1.7 mg/dL (1.8-2.4); PHOSPHORUS 3.3 mg/dL (2.5-4.9)
[2017-09-26 10:10] LABS: BASOPHILS % (AUTO) 0.4 % (0.0-2.0); HEMATOCRIT 24 % (33-45); HEMOGLOBIN 7.9 g/dL (11.5-14.8); LYMPHOCYTES # (AUTO) 0.8 /CMM (0.8-4.8); LYMPHOCYTES % (AUTO) 8.8 % (20.0-44.0); MEAN CORPUSCULAR HEMOGLOBIN 29 PG (26.0-33.0); MEAN CORPUSCULAR HGB CONC 33 g/dl (31.0-36.0); MEAN CORPUSCULAR VOLUME 86 fL (82-100); MONOCYTES # (AUTO) 0.4 /CMM (0.1-1.30); MONOCYTES % (AUTO) 4.7 % (2.0-12.0); NEUTROPHILS # (AUTO) 7.9 /CMM (1.8-8.9); NEUTROPHILS % (AUTO) 86.1 % (43.0-81.0); PLATELET COUNT (AUTO) 166 /CMM (150-450); RDW COEFFICIENT OF VARIATION 19.7 (11.5-15.0); RED BLOOD CELL COUNT(AUTO) 2.78 MIL/uL (4.0-5.2); WHITE BLOOD COUNT (AUTO) 9.1 K/uL (4.3-11.0)
[2017-09-26] MEDS: POTASSIUM CL. PREMIX PERIPHER. 50 ML IV SCH ×4 (10:15→13:26)
[2017-09-26] MEDS: Magnesium 1GM/D5W 100ML PREMIX 100 ML IV SCH ×2 (11:04→12:22)
[2017-09-26] MEDS ORDERED: DOCUSATE SODIUM 250 MG CAPSULE PO SCH (13:00)
--- NOTE | 2017-09-26 13:01 | NUR ---
SLOTS MANAGER NOTES NOTIFIED DR MEMBRENO REGARDING ABDOMINAL DISCOMFORT OF THE PATIENT , ABDOMEN LOOKS GASSY UPON PERCUSSION , T.O ORDER RECEIVED .
[2017-09-26] MEDS: DOCUSATE SODIUM LIQ 100 MG/10 ML UDC NG SCH (13:26)
[2017-09-26] MEDS: MAGNESIUM HYDROXIDE 30 ML UDC PO PRN (13:26)
[2017-09-26 14:41] LABS: ABG BASE EXCESS -1.3 mmol/L; ABG PCO2 43.6 mmHg (35.0-45.0); ABG PH 7.361 (7.350-7.450); ABG PO2 73.4 mmHg (75.0-100.0); AaDO2 89.3 mmHg; MetHb 0.5 % (0.0-1.5); O2Hb 91.5 % (94.0-97.0); PEEP,BG 5 cm H2O; SITE, ABG Right Radial; VENT MODE, BG CPAP PS 15; VT, ABG 450 mL
[2017-09-26] MEDS: VANCOMYCIN 1 GM in IV NS 0.9% 250 ML IV SCH (15:32)
[2017-09-26] MEDS: PANTOPRAZOLE 40 MG VIAL IV SCH (15:32)
[2017-09-26] MEDS: IV D5/0.45 NACL 1,000 ML IV PRN (15:42)
--- NOTE | 2017-09-26 16:00 | NUR ---
FISCAL SERVICES MANAGER NOTES ABG RESULT RELAYED TO DR PAEZ VIA CPAP MODE , PATIENT NOTED WITH TACHYPNEA RR OF 35-40 , SEEN BY DR PAEZ , PER MD PLACE BACK PT TO AC MODE , RT TATA AT BESIDE PLACED PT ON AC 18 , TV 450 FIO2 30% PEEP OF 5 SPO2 OF 100% , DIPRIVAN RESTARTED , WILL CONTINUE TO MONITOR
--- NOTE | 2017-09-26 16:30 | NUR ---
CLOTH REELER NOTES HEPARIN 500U SQ HELD , DUE TO MODERATE AMOUNT OF BLOOD IN THE URINE .
--- NOTE | 2017-09-26 17:18 | NUR ---
RT NOTE: PATIENT RECEIVED ORALLY INTUBATED WITH 7.5 ETT TAPED AT 23 CM MID LIP LINE. ETT MOVED FROM LEFT TO RIGHT OF MOUTH VIA ANCHOR FAST. BILATERAL B/S NOTED. @1203-PATIENT PLACED ON CPAP PER ORDER. @1452- PATIENT PLACED BACK ON AC PER DR PAEZ DUE TO DISTRESS. SUCTIONED AND LAVAGED MODERATE-LARGE AMOUNT OF THICK AGUAYO SECRETIONS. VENT PLUGGED INTO RED OUTLET. AMBU BAG AT [facility].
--- NOTE | 2017-09-26 17:34 | NUR ---
RT NOTE: RESP TREATMENT GIVEN LATE DUE TO STAT CALL.
[2017-09-26] MEDS: NYSTATIN TOP POWDER 15 GM BOTTLE TP SCH (18:26)
[2017-09-27] VITALS (39 sets, daily range): BP systolic 92–129; BP diastolic 45–71
[2017-09-27] MEDS: BLOOD SUGAR DIAGNOSTIC 1 EACH STRIP IN SCH ×6 (00:21→21:00)
[2017-09-27] MEDS: HEPARIN SODIUM, PORCINE 5000 UNITS/1 ML VIAL SQ SCH ×3 (00:27→16:05)
[2017-09-27] MEDS: INSULIN REGULAR, HUMAN 100 UNIT/ML 3 ML VIAL SQ PRN ×6 (00:59→21:00)
[2017-09-27] MEDS: PROPOFOL 100 ML IV PRN ×4 (03:40→21:50)
[2017-09-27] MEDS: IPRATROPIUM NEB FS 0.5 MG/2.5 ML AMPUL.NEB NEB SCH ×6 (04:01→23:49)
[2017-09-27 04:53] LABS: HEMATOCRIT 25 % (33-45); HEMOGLOBIN 8.2 g/dL (11.5-14.8); LYMPHOCYTES # (AUTO) 0.9 /CMM (0.8-4.8); LYMPHOCYTES % (AUTO) 10.6 % (20.0-44.0); MEAN CORPUSCULAR HEMOGLOBIN 29 PG (26.0-33.0); MEAN CORPUSCULAR HGB CONC 34 g/dl (31.0-36.0); MEAN CORPUSCULAR VOLUME 86 fL (82-100); MONOCYTES # (AUTO) 0.6 /CMM (0.1-1.30); MONOCYTES % (AUTO) 6.2 % (2.0-12.0); NEUTROPHILS # (AUTO) 7.4 /CMM (1.8-8.9); NEUTROPHILS % (AUTO) 83.2 % (43.0-81.0); PLATELET COUNT (AUTO) 162 /CMM (150-450); RDW COEFFICIENT OF VARIATION 18.8 (11.5-15.0); RED BLOOD CELL COUNT(AUTO) 2.86 MIL/uL (4.0-5.2); WHITE BLOOD COUNT (AUTO) 8.9 K/uL (4.3-11.0)
[2017-09-27] MEDS: methylPREDNISolone SOD SUCC 125 MG/2ML VIAL IV SCH ×3 (04:54→20:34)
[2017-09-27 05:20] LABS: CARBON DIOXIDE 30 mmol/L (21-32); CHLORIDE 102 mmol/L (98-107); CREATININE 1.7 mg/dL (0.6-1.3); GLUCOSE 178 mg/dL (74-106); PHOSPHORUS 2.9 mg/dL (2.5-4.9); SODIUM SERUM 141 mmol/L (136-145); UREA NITROGEN, BLOOD 43 mg/dL (7-18)
[2017-09-27] MEDS: LEVOTHYROXINE SODIUM 125 MCG TABLET PO SCH (06:39)
[2017-09-27 08:12] LABS: ABG BASE EXCESS 6.5 mmol/L; ABG OXYGEN SATURATION 97.1 % (92.0-98.5); ABG PCO2 25.8 mmHg (35.0-45.0); ABG PH 7.641 (7.350-7.450); ABG PO2 100.9 mmHg (75.0-100.0); AaDO2 82.7 mmHg; COHb 0.3 % (0.5-1.5); MetHb 0.5 % (0.0-1.5); O2Hb 96.3 % (94.0-97.0); PEEP,BG 5 cm H2O; SITE, ABG Right Radial; VT, ABG 450 mL
[2017-09-27] MEDS: MUPIROCIN OINT 2% 22 GM TUBE SCH ×2 (08:39→20:35)
[2017-09-27] MEDS: NYSTATIN TOP POWDER 15 GM BOTTLE TP SCH ×2 (08:39→16:06)
[2017-09-27] MEDS: DOCUSATE SODIUM LIQ 100 MG/10 ML UDC NG SCH (08:39)
[2017-09-27] MEDS: MEROPENEM 1 G in IV NS 0.9% 100 ML IV SCH ×2 (08:41→20:34)
[2017-09-27] MEDS: FUROSEMIDE 40 MG/4 ML VIAL IV SCH ×2 (08:41→16:05)
[2017-09-27] MEDS: MUPIROCIN OINT 2% 22 GM TUBE TP SCH ×2 (08:42→20:36)
--- NOTE | 2017-09-27 09:00 | NUR ---
ICU/RN - Notes Diprivan titrated down to 10mcg/kg/min, pt fully awake and moves all four extremities to command. Mouths words. Coughing and attempting to self extubate. Pt placed back on sedation as there is no wean plan for today.
[2017-09-27] MEDS ORDERED: POTASSIUM CL. PREMIX PERIPHER. 50 ML IV SCH (12:00)
[2017-09-27] MEDS ORDERED: GLYTROL 1,000 ML BAG GT PRN (12:00)
[2017-09-27] MEDS: POTASSIUM CL. PREMIX PERIPHER. 50 ML IV SCH ×5 (12:44→17:43)
[2017-09-27] MEDS: PANTOPRAZOLE 40 MG VIAL IV SCH (13:34)
[2017-09-27] MEDS: IV D5/0.45 NACL 1,000 ML IV PRN (15:08)
[2017-09-27] MEDS: VANCOMYCIN 1 GM in IV NS 0.9% 250 ML IV SCH (15:47)
[2017-09-27] MEDS: LACTOBACILLUS RHAMNOSUS GG 1 EACH CAP.SPRINK PO SCH (16:05)
[2017-09-27] MEDS: PROSOURCE / PROSTAT (PYXIS) 30 ML UDC NG SCH (16:06)
--- NOTE | 2017-09-27 20:16 | NUR ---
received pt from day shift, sedated on Diprivan at 30mcg, SR, on the vent, lung congested, some BL non pitting knee edema, OG to feeding tolerates OK, f/c good output, restraints on, v/s stable, no pain, pt turned and repositioned.
[2017-09-28] VITALS (32 sets, daily range): BP systolic 98–146; BP diastolic 45–82
--- NOTE | 2017-09-28 00:35 | NUR ---
pt is resting in the bed, sedated on Diprivan at 30mcg, tolerates feeding, good urine output, v/s stable, no pain, pt turned and repositioned q2hrs.
[2017-09-28] MEDS: INSULIN REGULAR, HUMAN 100 UNIT/ML 3 ML VIAL SQ PRN ×6 (01:23→21:14)
[2017-09-28] MEDS: HEPARIN SODIUM, PORCINE 5000 UNITS/1 ML VIAL SQ SCH ×3 (01:23→16:38)
[2017-09-28] MEDS: BLOOD SUGAR DIAGNOSTIC 1 EACH STRIP IN SCH ×6 (01:24→21:15)
[2017-09-28] MEDS: PROPOFOL 100 ML IV PRN (02:41)
[2017-09-28] MEDS: IPRATROPIUM NEB FS 0.5 MG/2.5 ML AMPUL.NEB NEB SCH ×5 (02:59→20:01)
--- NOTE | 2017-09-28 03:50 | NUR ---
RT pt orally intubated remains on [facility] vent on ordered settings. no resp distress noted. no weaning at this time. sx prn Addendum: 09/28/17 at 0351 by CL GRIFFITHS RT Amended: Links added.
--- NOTE | 2017-09-28 04:09 | NUR ---
pt is resting in the bed, no acute distress overnight, sedated on Diprivan at 30mcg, V pacing, good urine output, tolerates feeding, v/s stable, no pain, pt cleaned, changed and repositioned q2hrs.
[2017-09-28] MEDS: methylPREDNISolone SOD SUCC 125 MG/2ML VIAL IV SCH ×3 (04:24→21:11)
[2017-09-28 05:42] LABS: CALCIUM, SERUM 7.8 mg/dL (8.5-10.1); CARBON DIOXIDE 33 mmol/L (21-32); CHLORIDE 102 mmol/L (98-107); CREATININE 1.4 mg/dL (0.6-1.3); GLUCOSE 250 mg/dL (74-106); POTASSIUM 3.1 mmol/L (3.5-5.1); SODIUM SERUM 142 mmol/L (136-145); UREA NITROGEN, BLOOD 42 mg/dL (7-18)
--- NOTE | 2017-09-28 07:45 | NUR ---
ICU/RN - Initial Notes Received pt in bed sedated. Orally intubated to mechanical ventilator with settings as ordered. No s/s of respiratory distress. Tolerating tube feeding well. Corral catheter intact draining urine to gravity. IVF infusing well. Safety and comfort measures in place. Pt for mechanical ventilator weaning today. Will continue to monitor pt closely.
[2017-09-28] MEDS: PROSOURCE / PROSTAT (PYXIS) 30 ML UDC NG SCH ×2 (08:13→16:38)
[2017-09-28] MEDS: LEVOTHYROXINE SODIUM 125 MCG TABLET PO SCH (08:13)
[2017-09-28] MEDS: FUROSEMIDE 40 MG/4 ML VIAL IV SCH ×2 (08:13→16:40)
[2017-09-28] MEDS: DOCUSATE SODIUM LIQ 100 MG/10 ML UDC NG SCH (08:13)
[2017-09-28] MEDS: LACTOBACILLUS RHAMNOSUS GG 1 EACH CAP.SPRINK PO SCH ×2 (08:13→16:38)
[2017-09-28] MEDS: MUPIROCIN OINT 2% 22 GM TUBE TP SCH ×2 (08:14→21:00)
[2017-09-28] MEDS: MUPIROCIN OINT 2% 22 GM TUBE SCH ×2 (08:14→21:12)
[2017-09-28] MEDS: NYSTATIN TOP POWDER 15 GM BOTTLE TP SCH ×2 (08:14→16:49)
[2017-09-28] MEDS: MEROPENEM 1 G in IV NS 0.9% 100 ML IV SCH ×2 (08:15→21:11)
[2017-09-28] MEDS ORDERED: DC PROPOFOL WHEN EXTUBATED XX PRN (10:00)
--- NOTE | 2017-09-28 10:00 | NUR ---
ICU/RN - Notes Diprivan gtt turned off, pt fully awake and alert. Follows commands and moves extremities purposefully. RT placed pt on SIMV mode. Will continue to monitor.
[2017-09-28] MEDS: POTASSIUM CHLORIDE 20 MEQ POWDER PACKET GT SCH ×2 (11:24→12:05)
[2017-09-28 11:32] LABS: ABG BASE EXCESS 6.5 mmol/L; ABG OXYGEN SATURATION 96.9 % (92.0-98.5); ABG PCO2 37.6 mmHg (35.0-45.0); ABG PH 7.516 (7.350-7.450); AaDO2 65.7 mmHg; COHb 0.3 % (0.5-1.5); MetHb 0.4 % (0.0-1.5); O2Hb 96.2 % (94.0-97.0); PEEP,BG 5 cm H2O; SITE, ABG Left Radial; VT, ABG 450 mL
--- NOTE | 2017-09-28 12:10 | NUR ---
ICU/RN - Notes Pt tolerated weaning, extubated by RT per Dr Jorgensen's orders. No s/s of respiratory distress.
--- NOTE | 2017-09-28 12:10 | NUR ---
PT EXTUBATED PER MD ORDER. ZERO DISTRESS NOTED. STRONG COUGH, B/S EQUAL. RESTING ON 3LPM N/C
--- NOTE | 2017-09-28 13:00 | NUR ---
ICU/RN - Notes Pt's family at bedside.
[2017-09-28] MEDS: PANTOPRAZOLE 40 MG VIAL IV SCH (13:08)
[2017-09-28] MEDS: MAGNESIUM HYDROXIDE 30 ML UDC PO PRN (14:08)
--- NOTE | 2017-09-28 14:15 | NUR ---
ICU/RN - Notes Swallowing assessed at bedside. Pt able to eat ice chips and apple sauce with no s/s of aspiration noted. MOM given for pt's complaint of gas and abdominal discomfort.
[2017-09-28] MEDS: IV D5/0.45 NACL 1,000 ML IV PRN (16:38)
--- NOTE | 2017-09-28 17:56 | NUR ---
ICU/RN - Notes Pt ate dinner with no issues or s/s of aspiration. Pt thankful for care.
--- NOTE | 2017-09-28 20:48 | NUR ---
received pt from day shift, s/p extubation, a/o x4, follows commands, V pacing, on 4L 02 sat well, tolerates diet, f/c good output, v/s stable, no pain, pt turned and repositioned.
[2017-09-29] VITALS (20 sets, daily range): BP systolic 98–145; BP diastolic 50–79
[2017-09-29] MEDS: IPRATROPIUM NEB FS 0.5 MG/2.5 ML AMPUL.NEB NEB SCH ×7 (00:02→23:47)
--- NOTE | 2017-09-29 00:28 | NUR ---
pt is resting in the bed, alert, follows commands, v/s stable, no pain, pt turns and repositions by herself.
[2017-09-29] MEDS: HEPARIN SODIUM, PORCINE 5000 UNITS/1 ML VIAL SQ SCH ×3 (01:18→16:18)
[2017-09-29] MEDS: INSULIN REGULAR, HUMAN 100 UNIT/ML 3 ML VIAL SQ PRN ×6 (01:20→21:37)
[2017-09-29] MEDS: BLOOD SUGAR DIAGNOSTIC 1 EACH STRIP IN SCH ×6 (01:21→21:22)
--- NOTE | 2017-09-29 04:15 | NUR ---
pt is resting in the bed, no acute distress overnight, V pacing, v/s stable, no pain.
[2017-09-29] MEDS: methylPREDNISolone SOD SUCC 125 MG/2ML VIAL IV SCH ×3 (04:25→21:22)
[2017-09-29 04:47] LABS: CALCIUM, SERUM 7.9 mg/dL (8.5-10.1); CARBON DIOXIDE 37 mmol/L (21-32); CHLORIDE 103 mmol/L (98-107); CREATININE 1.2 mg/dL (0.6-1.3); GLUCOSE 208 mg/dL (74-106); POTASSIUM 3.7 mmol/L (3.5-5.1); SODIUM SERUM 143 mmol/L (136-145); UREA NITROGEN, BLOOD 46 mg/dL (7-18)
--- NOTE | 2017-09-29 07:39 | NUR ---
COOLER ROOM WORKER RECEIVED PATIENT FROM THE PREVIOUS SHIFT. PATIENT IS IN BED. RESTING COMFORTABLY. NO ACUTE DISTRESS. ABLE TO VERBALIZE NEEDS. STABLE VITAL SINGS. AFEBRILE. LAND DRAINING URINE TO GRAVITY. WILL CONTINUE TO MONITOR AND PROVIDE CARE.
[2017-09-29] MEDS: PROSOURCE / PROSTAT (PYXIS) 30 ML UDC NG SCH ×2 (08:36→16:19)
[2017-09-29] MEDS: MUPIROCIN OINT 2% 22 GM TUBE SCH (08:36)
[2017-09-29] MEDS: NYSTATIN TOP POWDER 15 GM BOTTLE TP SCH ×2 (08:37→16:19)
[2017-09-29] MEDS: MUPIROCIN OINT 2% 22 GM TUBE TP SCH ×2 (08:37→21:26)
[2017-09-29] MEDS: DOCUSATE SODIUM LIQ 100 MG/10 ML UDC NG SCH (08:40)
[2017-09-29] MEDS: FUROSEMIDE 40 MG/4 ML VIAL IV SCH ×2 (08:40→16:16)
[2017-09-29] MEDS: LACTOBACILLUS RHAMNOSUS GG 1 EACH CAP.SPRINK PO SCH ×2 (08:40→16:19)
[2017-09-29] MEDS: LEVOTHYROXINE SODIUM 125 MCG TABLET PO SCH (08:43)
[2017-09-29] MEDS: MEROPENEM 1 G in IV NS 0.9% 100 ML IV SCH ×2 (08:43→21:22)
[2017-09-29] MEDS ORDERED: SIMETHICONE 80 MG TAB.CHEW PO PRN (09:00)
[2017-09-29 09:19] LABS: ABG BASE EXCESS 6.2 mmol/L; ABG OXYGEN SATURATION 96.7 % (92.0-98.5); ABG PCO2 44.4 mmHg (35.0-45.0); ABG PH 7.458 (7.350-7.450); ABG PO2 99.1 mmHg (75.0-100.0); AaDO2 48.2 mmHg; COHb 0.3 % (0.5-1.5); MetHb 0.5 % (0.0-1.5); O2Hb 95.9 % (94.0-97.0); SITE, ABG Right Radial; VENT MODE, BG NC 2L
[2017-09-29] MEDS: PANTOPRAZOLE 40 MG VIAL IV SCH (14:03)
--- NOTE | 2017-09-29 17:27 | NUR ---
INDUSTRIAL ENGINEERING ANALYST TRANSFERRED THE PATIENT TO [facility] LEVEL OF CARE ON STABLE CONDITIONS. ACLS PROTOCOL.
--- NOTE | 2017-09-29 18:07 | NUR ---
PERFORMANCE MAKEUP ARTIST NOTES RECEIVED PT FROM ICU. PT STABLE. WILL CONTINUE TO MONITOR PT CLOSELY.
--- NOTE | 2017-09-29 18:23 | NUR ---
JEWELRY COATER NOTES NO ACUTE CHANGES NOTED DURING THE SHIFT. PROVIDED COMFORT AND SAFETY. DUE MEDS GIVEN. WILL ENDORSE TO THE PM NURSE FOR CEDRIC.
[2017-09-30] VITALS: BP 117/68
[2017-09-30] MEDS: BLOOD SUGAR DIAGNOSTIC 1 EACH STRIP IN SCH ×6 (01:39→21:39)
[2017-09-30] MEDS: HEPARIN SODIUM, PORCINE 5000 UNITS/1 ML VIAL SQ SCH ×3 (01:46→16:46)
[2017-09-30] MEDS: INSULIN REGULAR, HUMAN 100 UNIT/ML 3 ML VIAL SQ PRN ×4 (01:50→13:36)
[2017-09-30] MEDS: IPRATROPIUM NEB FS 0.5 MG/2.5 ML AMPUL.NEB NEB SCH ×6 (03:30→23:12)
[2017-09-30 04:00] VITALS: BP 126/65
[2017-09-30] MEDS: methylPREDNISolone SOD SUCC 125 MG/2ML VIAL IV SCH ×2 (04:24→21:40)
--- NOTE | 2017-09-30 06:04 | NUR ---
RN INITIAL TEL NOTE RECEIVED PATIENT FROM THE PREVIOUS SHIFT. PATIENT IS IN BED. RESTING COMFORTABLY. NO ACUTE DISTRESS. ABLE TO VERBALIZE NEEDS. STABLE VITAL SINGS. AFEBRILE. EMERY DRAINING URINE TO GRAVITY. WILL CONTINUE TO MONITOR AND PROVIDE CARE. Addendum: 09/30/17 at 0614 by LB MARIN RN 1999
--- NOTE | 2017-09-30 06:14 | NUR ---
RN TEL CLOSING NOTE ENDORSED PATIENT FROM THE PREVIOUS SHIFT. PATIENT IS IN BED. RESTING COMFORTABLY. NO ACUTE DISTRESS. ABLE TO VERBALIZE NEEDS. STABLE VITAL SINGS. AFEBRILE. LAND DRAINING URINE TO GRAVITY. WILL CONTINUE TO MONITOR AND PROVIDE CARE.
[2017-09-30 06:42] LABS: CARBON DIOXIDE 37 mmol/L (21-32); CHLORIDE 100 mmol/L (98-107); CREATININE 1.1 mg/dL (0.6-1.3); GLUCOSE 164 mg/dL (74-106); HEMATOCRIT 30 % (33-45); HEMOGLOBIN 9.9 g/dL (11.5-14.8); LYMPHOCYTES # (AUTO) 1.3 /CMM (0.8-4.8); LYMPHOCYTES % (AUTO) 9.2 % (20.0-44.0); MEAN CORPUSCULAR HEMOGLOBIN 29 PG (26.0-33.0); MEAN CORPUSCULAR HGB CONC 33 g/dl (31.0-36.0); MEAN CORPUSCULAR VOLUME 88 fL (82-100); MONOCYTES # (AUTO) 0.4 /CMM (0.1-1.30); MONOCYTES % (AUTO) 3.2 % (2.0-12.0); NEUTROPHILS % (AUTO) 87.6 % (43.0-81.0); PLATELET COUNT (AUTO) 162 /CMM (150-450); POTASSIUM 3.9 mmol/L (3.5-5.1); RDW COEFFICIENT OF VARIATION 18.5 (11.5-15.0); RED BLOOD CELL COUNT(AUTO) 3.38 MIL/uL (4.0-5.2); SODIUM SERUM 140 mmol/L (136-145); UREA NITROGEN, BLOOD 42 mg/dL (7-18); WHITE BLOOD COUNT (AUTO) 13.7 K/uL (4.3-11.0)
[2017-09-30 08:00] VITALS: BP 126/81
--- NOTE | 2017-09-30 08:10 | NUR ---
BARREL ROLLER OPERATOR INITIAL NOTE PATIENT IN BED RESTING , NO SOB NOTED OR COMPLAINTS OF PAIN PATIENT APPEARS CALM , CALL LIGHT WITHIN REACH , SAFETY MEASURES IN PLACE RN WILL CONTINUE TO ASSESS THROUGHOUT THE DAY ISOLATION OBSERVED AND MONITORED.
[2017-09-30] MEDS: MEROPENEM 1 G in IV NS 0.9% 100 ML IV SCH (09:06)
[2017-09-30] MEDS: FUROSEMIDE 40 MG/4 ML VIAL IV SCH (09:06)
[2017-09-30] MEDS: LEVOTHYROXINE SODIUM 125 MCG TABLET PO SCH (09:06)
[2017-09-30] MEDS: LACTOBACILLUS RHAMNOSUS GG 1 EACH CAP.SPRINK PO SCH ×2 (09:07→16:45)
[2017-09-30] MEDS: DOCUSATE SODIUM LIQ 100 MG/10 ML UDC NG SCH (09:07)
[2017-09-30] MEDS: NYSTATIN TOP POWDER 15 GM BOTTLE TP SCH ×2 (09:08→16:45)
[2017-09-30] MEDS: MUPIROCIN OINT 2% 22 GM TUBE TP SCH ×2 (09:08→21:46)
[2017-09-30] MEDS: PROSOURCE / PROSTAT (PYXIS) 30 ML UDC NG SCH ×2 (09:31→16:47)
[2017-09-30] MEDS: PANTOPRAZOLE 40 MG VIAL IV SCH (13:32)
[2017-09-30 16:00] VITALS: BP 136/72
--- NOTE | 2017-09-30 18:40 | NUR ---
RN CLOSING NOTE PATIENT REMAINS STABLE THROUGHOUT THE DAY, NO SOB NOTED , PATIENT TURNED AND REPOSITIONED ALL NEEDS ATTENDED , PATIENT MEDICATION GIVEN PRN. PLAN OF CARE DISCUSSED WITH FAMILY. CONTINUATION OF CARE WILL BE ENDORSED TO ONCOMING SHIFT. DISCHARGE PLANNING SCHEDULED FOR THE AM
[2017-09-30 20:00] VITALS: BP 144/69
--- NOTE | 2017-09-30 20:02 | NUR ---
RN INITIAL TEL NOTE RECEIVED PATIENT FROM THE PREVIOUS SHIFT. PATIENT IS IN BED. RESTING COMFORTABLY. NO ACUTE DISTRESS. ABLE TO VERBALIZE NEEDS. STABLE VITAL SINGS. AFEBRILE. LAND DRAINING URINE TO GRAVITY. WILL CONTINUE TO MONITOR AND PROVIDE CARE.
[2017-09-30 20:48] VITALS: BP 144/69
[2017-10-01] MEDS: INSULIN REGULAR, HUMAN 100 UNIT/ML 3 ML VIAL SQ PRN ×3 (00:10→09:23)
[2017-10-01] MEDS: IPRATROPIUM NEB FS 0.5 MG/2.5 ML AMPUL.NEB NEB SCH ×3 (03:59→11:14)
[2017-10-01 04:00] VITALS: BP 113/60
[2017-10-01] MEDS: BLOOD SUGAR DIAGNOSTIC 1 EACH STRIP IN SCH ×3 (04:45→09:08)
--- NOTE | 2017-10-01 05:57 | NUR ---
RN MS CLOSING TEL NOTE ENDORSED PATIENT FROM THE PREVIOUS SHIFT. PATIENT IS IN BED. RESTING COMFORTABLY. NO ACUTE DISTRESS. ABLE TO VERBALIZE NEEDS. STABLE VITAL SINGS. AFEBRILE. LAND DRAINING URINE TO GRAVITY. WILL CONTINUE TO MONITOR AND PROVIDE CARE
[2017-10-01 06:43] LABS: EOSINOPHILS % (AUTO) 0.1 % (0.0-6.0); HEMATOCRIT 32 % (33-45); HEMOGLOBIN 10.5 g/dL (11.5-14.8); LYMPHOCYTES # (AUTO) 1.5 /CMM (0.8-4.8); LYMPHOCYTES % (AUTO) 10.3 % (20.0-44.0); MEAN CORPUSCULAR HEMOGLOBIN 29 PG (26.0-33.0); MEAN CORPUSCULAR HGB CONC 33 g/dl (31.0-36.0); MEAN CORPUSCULAR VOLUME 88 fL (82-100); MONOCYTES # (AUTO) 0.6 /CMM (0.1-1.30); MONOCYTES % (AUTO) 3.9 % (2.0-12.0); NEUTROPHILS # (AUTO) 12.8 /CMM (1.8-8.9); NEUTROPHILS % (AUTO) 85.7 % (43.0-81.0); PLATELET COUNT (AUTO) 159 /CMM (150-450); RDW COEFFICIENT OF VARIATION 18.6 (11.5-15.0); RED BLOOD CELL COUNT(AUTO) 3.61 MIL/uL (4.0-5.2); WHITE BLOOD COUNT (AUTO) 14.9 K/uL (4.3-11.0)
[2017-10-01 06:44] LABS: CALCIUM, SERUM 8.4 mg/dL (8.5-10.1); CARBON DIOXIDE 37 mmol/L (21-32); CHLORIDE 97 mmol/L (98-107); CREATININE 1.1 mg/dL (0.6-1.3); GLUCOSE 193 mg/dL (74-106); POTASSIUM 3.9 mmol/L (3.5-5.1); SODIUM SERUM 138 mmol/L (136-145); UREA NITROGEN, BLOOD 41 mg/dL (7-18)
--- NOTE | 2017-10-01 07:30 | NUR ---
MS RN OPENING NOTES RECEIVED PATIENT IN STABLE CONDITION. IN NO APPARENT DISTRESS. BEDSIDE RAILS ARE UPX2. BED IS LOCKED AND LOWERED. CALL LIGHT IS WITHIN REACH. WILL CONTINUE TO MONITOR.
[2017-10-01] MEDS ORDERED: FUROSEMIDE 40 MG/4 ML VIAL IV SCH (09:00)
[2017-10-01] MEDS: DOCUSATE SODIUM LIQ 100 MG/10 ML UDC NG SCH (09:04)
[2017-10-01] MEDS: PROSOURCE / PROSTAT (PYXIS) 30 ML UDC NG SCH (09:05)
[2017-10-01] MEDS: LACTOBACILLUS RHAMNOSUS GG 1 EACH CAP.SPRINK PO SCH (09:05)
[2017-10-01] MEDS: LEVOTHYROXINE SODIUM 125 MCG TABLET PO SCH (09:05)
[2017-10-01] MEDS: methylPREDNISolone SOD SUCC 125 MG/2ML VIAL IV SCH (09:12)
[2017-10-01] MEDS: NYSTATIN TOP POWDER 15 GM BOTTLE TP SCH (09:20)
[2017-10-01] MEDS: MUPIROCIN OINT 2% 22 GM TUBE TP SCH (09:21)
[2017-10-01] MEDS ORDERED: PRED50TA PO (09:48)
[2017-10-01 12:00] VITALS: BP 122/58
--- NOTE | 2017-10-01 12:00 | NUR ---
DISCHARGED MS RN NOTES PATIENT DISCHARGED IN STABLE CONDITION. IN NO APPARENT DISTRESS. VITAL SIGNS ARE STABLE. ALL NEEDS WERE MET. SON NOTIFIED. PATIENT IS ESCORTED OUT OF THE HOSPITAL VIA AMBULANCE.
== END 2017-10-01 12:28 | DRG 720 ==
LOC: ER 09:04 → ICU 13:22 → TELE1 09-29 17:22 → MEDSG1 09-30 11:12
PROVIDERS: ADMIT Internal Medicine; ATTEND Internal Medicine
PROC: 5A1955Z Respiratory Ventilation, Greater than 96 Consecutive Hours (ICD-10-PCS; principal; 2017-09-23)
PROC: 02HV33Z Insertion of Infusion Device into Superior Vena Cava, Percutaneous Approach (ICD-10-PCS; principal; 2017-09-23)
PROC: 0BH17EZ Insertion of Endotracheal Airway into Trachea, Via Natural or Artificial Opening (ICD-10-PCS; principal; 2017-09-23)
DX: A41.9 Sepsis, unspecified organism (principal); N17.0 Acute kidney failure with tubular necrosis; J96.21 Acute and chronic respiratory failure with hypoxia; R57.1 Hypovolemic shock; J15.6 Pneumonia due to other Gram-negative bacteria; G93.41 Metabolic encephalopathy; I50.33 Acute on chronic diastolic (congestive) heart failure; J15.9 Unspecified bacterial pneumonia; I13.0 Hypertensive heart and chronic kidney disease with heart failure and stage 1 through stage 4 chronic kidney disease, or unspecified chronic kidney disease; L89.153 Pressure ulcer of sacral region, stage 3; R65.21 Severe sepsis with septic shock; J96.22 Acute and chronic respiratory failure with hypercapnia; E44.0 Moderate protein-calorie malnutrition; E11.22 Type 2 diabetes mellitus with diabetic chronic kidney disease; I25.10 Atherosclerotic heart disease of native coronary artery without angina pectoris; K21.9 Gastro-esophageal reflux disease without esophagitis; N18.3 Chronic kidney disease, stage 3 (moderate); Z96.649 Presence of unspecified artificial hip joint; Z95.1 Presence of aortocoronary bypass graft; E87.5 Hyperkalemia; Z95.0 Presence of cardiac pacemaker; M81.0 Age-related osteoporosis without current pathological fracture; Z90.710 Acquired absence of both cervix and uterus; Z88.2 Allergy status to sulfonamides; Z88.0 Allergy status to penicillin; Z83.3 Family history of diabetes mellitus; Z79.4 Long term (current) use of insulin; Z79.899 Other long term (current) drug therapy; J44.1 Chronic obstructive pulmonary disease with (acute) exacerbation; J44.0 Chronic obstructive pulmonary disease with (acute) lower respiratory infection; L30.4 Erythema intertrigo; E03.9 Hypothyroidism, unspecified; D64.9 Anemia, unspecified; E78.5 Hyperlipidemia, unspecified; E83.42 Hypomagnesemia; E87.2 Acidosis; I70.0 Atherosclerosis of aorta; I34.0 Nonrheumatic mitral (valve) insufficiency; F32.9 Major depressive disorder, single episode, unspecified; I27.81 Cor pulmonale (chronic); E66.01 Morbid (severe) obesity due to excess calories; Z68.29 Body mass index [BMI] 29.0-29.9, adult; Z22.322 Carrier or suspected carrier of Methicillin resistant Staphylococcus aureus; Z63.4 Disappearance and death of family member; I27.29 Other secondary pulmonary hypertension; F03.90 Unspecified dementia, unspecified severity, without behavioral disturbance, psychotic disturbance, mood disturbance, and anxiety; E87.6 Hypokalemia; Y95 Nosocomial condition
CPT/HCPCS: 31720; 36415; 36600; 70450-TC; 71045-TC; 80048-TC; 80053-TC; 80061-TC; 80076-TC; 80202-TC; 81000-TC; 82570-TC; 82803-TC; 82962-TC; 83605-TC; 83735-TC; 83880; 84100-TC; 84155-TC; 84300-TC; 84443-TC; 84484-TC; 85025-TC; 85730-TC; 87040-TC; 87070-TC; 87081-TC; 87400; 92611-TC; 93307-TC; 94003-TC; 94799-TC; A4216; A4606; A6403; C1751; C9113; J0330; J1250; J1644; J1815; J1940; J1956; J2185; J2930; J3370; J3475; J3480; J3490; J7030; J7042; J7050; J7060; Z7610

== ENCOUNTER 2017-11-19 13:45 | Inpatient (IN) | payer OTHER, MEDICARE ==
[~2017-11-19] VITALS: Ht 162.6 cm; Wt 78.0 kg
[~2017-11-19 13:45] MED LIST: ACET-868 PO; AMIN30LI4 PO; AMLO5TAB7 PO; ARGI1POW13 PO; ASCO500T9 PO; BLOO-668 IN; CLOP75TA15 PO; DOCU-141 PO; FOLI1TAB16 PO; FURO-144 PO; GLYB2.5T4 PO; INSU100V27 SQ; LEVO100T9 PO; LINA5TAB PO; LOSA100T15 PO; MAGN400O6 PO; METF-440 PO; METO25TA20 PO; MULT-447 PO; POTA20TA83 PO; PRED50TA PO; RALO60TA PO; ZINC220C8 PO
--- NOTE | 2017-11-19 13:45 | NUR ---
BIB PRIVATE EMT, C/O PROGRESSIVE WEAKNESS TODAY, NAD NOTED, VSS, RESP EVEN AND UNLABORED, PT PUT ON MONITOR, MD AT BS.
[2017-11-19] MEDS ORDERED: IV NS 0.9% 500 ML BAG IV ONE ×2 (14:30→16:00)
[2017-11-19 14:38] LABS: BASOPHILS # (AUTO) 0.3 /CMM (0.0-0.2); BASOPHILS % (AUTO) 2.3 % (0.0-2.0); EOSINOPHILS % (AUTO) 0.2 % (0.0-6.0); HEMATOCRIT 26 % (33-45); HEMOGLOBIN 8.7 g/dL (11.5-14.8); LYMPHOCYTES # (AUTO) 1.1 /CMM (0.8-4.8); LYMPHOCYTES % (AUTO) 9.3 % (20.0-44.0); MEAN CORPUSCULAR HGB CONC 33 g/dl (31.0-36.0); MEAN CORPUSCULAR VOLUME 87 fL (82-100); MONOCYTES # (AUTO) 0.7 /CMM (0.1-1.30); MONOCYTES % (AUTO) 6.5 % (2.0-12.0); NEUTROPHILS # (AUTO) 9.2 /CMM (1.8-8.9); NEUTROPHILS % (AUTO) 81.7 % (43.0-81.0); PLATELET COUNT (AUTO) 239 /CMM (150-450); RDW COEFFICIENT OF VARIATION 17.9 (11.5-15.0); WHITE BLOOD COUNT (AUTO) 11.3 K/uL (4.3-11.0)
[2017-11-19 14:46] LABS: CALCIUM, SERUM 8.9 mg/dL (8.5-10.1); CARBON DIOXIDE 35 mmol/L (21-32); CHLORIDE 97 mmol/L (98-107); CREATININE 1.3 mg/dL (0.6-1.3); GLUCOSE 260 mg/dL (74-106); POTASSIUM 5.5 mmol/L (3.5-5.1); SODIUM SERUM 134 mmol/L (136-145); UREA NITROGEN, BLOOD 34 mg/dL (7-18)
[2017-11-19 14:50] LABS: INR 1.26 (0.85-1.15)
[2017-11-19 14:52] LABS: ALANINE AMINOTRANSFERASE 13 U/L (12-78); ALBUMIN 2.6 g/dL (3.4-5.0); ALKALINE PHOSPHATASE 71 U/L (46-116); ASPARTATE AMINOTRANSFERASE 15 U/L (15-37); BILIRUBIN,DIRECT 0.2 mg/dL (0.0-0.2); BILIRUBIN,TOTAL 0.4 mg/dL (0.2-1.0); TOTAL PROTEIN, SERUM 7.3 g/dL (6.4-8.2)
[2017-11-19 14:54] LABS: TROPONIN I < 0.017 ng/mL (0.00-0.056)
[2017-11-19 15:01] LABS: APPEARANCE,URINE Cloudy (CLEAR); BILIRUBIN,URINE Negative (NEGATIVE); BLOOD, URINE Moderate Ery/uL (NEGATIVE); COLOR,URINE Yellow (YELLOW); KETONES,URINE Negative (NEGATIVE); LEUKOCYTE ESTERASE ,URINE Moderate (NEGATIVE); NITRITE, URINE Negative (NEGATIVE); PROTEIN,URINE Trace mg/dl (NEGATIVE); UGLUCOSE Negative (NEGATIVE); UROBILINOGEN,URINE 0.2 EU/dL (0.2)
[2017-11-19 15:13] LABS: BACTERIA,URINE 2+ /HPF (None Seen); RBC,URINE 21-50 /HPF (0-2); SQUAMOUS EPITHELIAL CELL,UR Few /HPF (None Seen)
[2017-11-19 15:21] LABS: BAND % (MANUAL) 1 % (0.0-5.0); LYMPHOCYTES % (MANUAL) 10 % (16-48); MONOCYTES % (MANUAL) 7 % (0-11.0); NEUTROPHILS % (MANUAL) 82 (42-76)
[2017-11-19] MEDS ORDERED: FUROSEMIDE 20 MG/2 ML VIAL ONE (15:56)
[2017-11-19] MEDS ORDERED: DEXTROSE 50%-WATER 50 ML DISP.SYRIN ONE (15:56)
[2017-11-19] MEDS ORDERED: INSULIN REGULAR, HUMAN 100 UNIT/ML 10 ML VIAL ONE (15:57)
[2017-11-19] MEDS ORDERED: SODIUM POLYSTYRENE SULFONATE 15 G/60 ML BOTTLE ONE (15:58)
[2017-11-19] MEDS ORDERED: SODIUM POLYSTYRENE SULFONATE 15 G/60 ML BOTTLE PO ONE (16:00)
[2017-11-19] MEDS ORDERED: FUROSEMIDE 40 MG/4 ML VIAL IV ONE (16:00)
[2017-11-19] MEDS ORDERED: CEFTRIAXONE 1 G in IV NS 0.9% 50 ML IV SCH (16:00)
[2017-11-19] MEDS ORDERED: DEXTROSE 50%-WATER 50 ML DISP.SYRIN IV ONE (16:00)
[2017-11-19] MEDS ORDERED: INSULIN REGULAR, HUMAN 100 UNIT/ML 10 ML VIAL IV ONE (16:00)
--- NOTE | 2017-11-19 16:01 | NUR ---
PAGED EPIC FOR PANEL
--- NOTE | 2017-11-19 16:04 | NUR ---
CALLED NURSE SUP FOR TELE BED
[2017-11-19] MEDS ORDERED: DEXTROSE 50%-WATER 50 ML DISP.SYRIN IV PRN (17:00)
[2017-11-19] MEDS: METOPROLOL TARTRATE 25 MG TABLET PO SCH (17:00)
[2017-11-19] MEDS ORDERED: MAG HYDROX/AL HYDROX/SIMETH 30 ML UDC PO PRN (17:00)
[2017-11-19] MEDS ORDERED: MAGNESIUM HYDROXIDE 30 ML UDC PO PRN ×2 (17:00)
[2017-11-19] MEDS ORDERED: Medication Not On Formulary EA (Arginine/Ascorbate Sod/Vite AC (Arginaid Powder) 1 EACH) PO SCH (17:00)
[2017-11-19] MEDS ORDERED: ONDANSETRON HCL/PF 4 MG/2 ML VIAL IVP PRN (17:00)
[2017-11-19] MEDS ORDERED: ACETAMINOPHEN 325 MG TABLET PO PRN (17:00)
[2017-11-19] MEDS ORDERED: Z GUARD REMEDY 2 OZ OINT TP PRN (17:00)
[2017-11-19] MEDS ORDERED: ZOLPIDEM TARTRATE 5 MG TABLET PO PRN (17:00)
[2017-11-19] MEDS: AMLODIPINE BESYLATE 5 MG TABLET PO SCH (17:00)
--- NOTE | 2017-11-19 17:30 | NUR ---
ADMISSION NOTE RECEIVED PT. PT STABLE AND RESTING IN BED. CHART PROVIDED BY ER. ORDERS RECEIVED. WILL CONTINUE TO MONITOR.
[2017-11-19] MEDS ORDERED: LEVOFLOXACIN 500 MG /D5W 100ML 500 MG in PREMIX 1 EA IV ONE (18:00)
[2017-11-19] MEDS: FUROSEMIDE 40 MG/4 ML VIAL IV SCH (18:51)
[2017-11-19] MEDS: BLOOD SUGAR DIAGNOSTIC 1 EACH STRIP VI SCH ×2 (19:20→21:53)
--- NOTE | 2017-11-19 19:28 | NUR ---
RN CLOSING NOTE PT IN BED RESTING. ALL PT NEEDS ANTICIPATED AND MET. SAFETY MEASURES IN PLACE. CALL LIGHT IN REACH. WILL ENDORSE TO CHANGE CONSULTANT FOR CEDRIC.
--- NOTE | 2017-11-19 19:30 | NUR ---
DETECTIVE LIEUTENANT OPENING NOTES: RECEIVED PT IN BED AND IS ASLEEP AT THIS TIME. PT IS AROUSABLE TO TOUCH. PT ON 2LPM VIA NC. PT APPEARS TO BE LETHARGIC AT THIS TIME. PT A/OX2. PT HAS IV LEVAQUIN RUNNING AT THIS TIME. BED ALARM ACTIVATED. PT IS ON TELE BOX AND READING SHOWS V PACING. CALL LIGHT WITHIN PT'S REACH. BED KEPT IN LOW, LOCKED POSITION, AND SIDE RAILS X 2UP. WILL CONTINUE TO MONITOR PT.
[2017-11-19 20:00] VITALS: BP 131/57
[2017-11-19] MEDS ORDERED: INSULIN REGULAR, HUMAN 100 UNIT/ML 3 ML VIAL ONE (21:04)
[2017-11-19] MEDS ORDERED: POTASSIUM CHLORIDE 20 MEQ TAB.PRT.SR PO SCH (22:00)
[2017-11-19] MEDS: *INSULIN REGULAR(HUMULIN R)HUM 100 UNIT/ML VIAL SQ PRN (22:50)
--- NOTE | 2017-11-19 23:01 | NUR ---
MS RN NOTES: BLOOD SUGAR WAS 183. 3 UNITS OF INSULIN WAS ADMINISTERED. PT HAD APPLE JUICE TO DRINK AFTER. OFFERED OTHER SNACKS BUT PT DOES NOT WANT ANY AT THIS TIME TIME. WILL CONTINUE TO MONITOR.
[2017-11-20] VITALS (9 sets, daily range): BP systolic 92–141; BP diastolic 36–63
[2017-11-20] MEDS: BLOOD SUGAR DIAGNOSTIC 1 EACH STRIP VI SCH ×4 (06:01→22:38)
--- NOTE | 2017-11-20 06:19 | NUR ---
MS RN NOTES: SPOKE WITH LEIGHTON OVER THE PHONE (DTR) [phone] AND TRIED TO GET TELEPHONE CONSENT FOR US GUIDED THORACENTESIS SINCE PT HAS BEEN LETHARGIC THE ENTIRE TIME. SHE WOULD LIKE TO CONSENT ONCE THE TIME IS CONFIRMED FOR THE US GUIDED THORACENTESIS AND HAVE NURSE CALL BACK TO OBTAIN CONSENT. WILL ENDORSE TO AM NURSE.
[2017-11-20] MEDS: INSULIN REGULAR, HUMAN 100 UNIT/ML 3 ML VIAL SQ PRN ×3 (06:23→17:50)
--- NOTE | 2017-11-20 06:31 | NUR ---
RN NOTES: BLOOD SUGAR THIS AM WAS 148. 2 UNITS OF INSULIN WAS ADMINISTERED. APPLE SAUCE AND APPLE JUICE WERE PROVIDED.
[2017-11-20 07:08] LABS: BASOPHILS % (AUTO) 0.2 % (0.0-2.0); EOSINOPHILS % (AUTO) 0.5 % (0.0-6.0); HEMATOCRIT 27 % (33-45); HEMOGLOBIN 8.5 g/dL (11.5-14.8); LYMPHOCYTES # (AUTO) 1.3 /CMM (0.8-4.8); LYMPHOCYTES % (AUTO) 11.9 % (20.0-44.0); MEAN CORPUSCULAR HGB CONC 32 g/dl (31.0-36.0); MEAN CORPUSCULAR VOLUME 89 fL (82-100); MONOCYTES # (AUTO) 0.8 /CMM (0.1-1.30); MONOCYTES % (AUTO) 7.4 % (2.0-12.0); NEUTROPHILS # (AUTO) 8.5 /CMM (1.8-8.9); PLATELET COUNT (AUTO) 211 /CMM (150-450); RDW COEFFICIENT OF VARIATION 18.8 (11.5-15.0); RED BLOOD CELL COUNT(AUTO) 3.02 MIL/uL (4.0-5.2); WHITE BLOOD COUNT (AUTO) 10.6 K/uL (4.3-11.0)
[2017-11-20 07:23] LABS: CALCIUM, SERUM 8.4 mg/dL (8.5-10.1); CARBON DIOXIDE 35 mmol/L (21-32); CHLORIDE 101 mmol/L (98-107); CREATININE 1.2 mg/dL (0.6-1.3); GLUCOSE 168 mg/dL (74-106); MAGNESIUM 1.6 mg/dL (1.8-2.4); POTASSIUM 4.1 mmol/L (3.5-5.1); SODIUM SERUM 140 mmol/L (136-145); UREA NITROGEN, BLOOD 31 mg/dL (7-18)
--- NOTE | 2017-11-20 07:27 | NUR ---
MS RN CLOSING NOTES: ALL NEEDS WERE ATTENDED AND ANTICIPATED FOR. PT ON 2LPM VIA NC AND IS TOLERATING WELL. PT REORIENTED MULTIPLE TIMES PT REMAINS LETHARGIC AND HAS PERIODS OF FORGETFULNESS. BED ALARM ACTIVATED. PT ON TELE BOX AND READING SHOWS V PACING 80. CALL LIGHT WITHIN PT'S REACH. BED KEPT IN LOW, LOCKED POSITION, AND SIDE RAILS X 2UP. ENDORSED TO AM NURSE FOR CEDRIC.
--- NOTE | 2017-11-20 07:30 | NUR ---
MS RN NOTES A/O X2-3, FORGETFUL WITH CONFUSION NOTED, REORIENT EASILY, FOLLOWS SIMPLE COMMAND. OXYGEN AT 2L VIA NC, NO SOB. DENIES PAIN, SAFETY PRECAUTION MAINTAINED. WILL CONT TO MONITOR.
[2017-11-20] MEDS: FUROSEMIDE 40 MG/4 ML VIAL IV SCH ×2 (08:37→17:51)
[2017-11-20] MEDS: LEVOTHYROXINE SODIUM 100 MCG TABLET PO SCH (08:40)
[2017-11-20] MEDS: METOPROLOL TARTRATE 25 MG TABLET PO SCH ×2 (08:41→17:55)
[2017-11-20] MEDS: ZINC SULFATE 220 MG CAPSULE PO SCH (08:41)
[2017-11-20] MEDS: RALOXIFENE 60 MG TABLET PO SCH (08:41)
[2017-11-20] MEDS: FOLIC ACID 1 MG TABLET PO SCH (08:41)
[2017-11-20] MEDS: LOSARTAN POTASSIUM 50 MG TABLET PO SCH (08:41)
[2017-11-20] MEDS: AMLODIPINE BESYLATE 5 MG TABLET PO SCH ×2 (08:42→17:55)
[2017-11-20] MEDS: DOCUSATE SODIUM 100 MG CAPSULE PO SCH (08:42)
[2017-11-20] MEDS: MULTIVIT, IRON, MIN NO. 8, FA 1 TAB PO SCH (08:42)
[2017-11-20] MEDS: ASCORBIC ACID 500 MG TABLET PO SCH (08:42)
[2017-11-20] MEDS ORDERED: POTASSIUM CHLORIDE 20 MEQ TAB.PRT.SR PO SCH (09:00)
[2017-11-20] MEDS ORDERED: PROSTAT (PYXIS) 30 ML UDC PO SCH (09:00)
--- NOTE | 2017-11-20 10:30 | NUR ---
CALLED SPOKE TO CHUYITA MANZANARES, PATIENT'S SON CONSENTED PROCEDURE FOR THORACENTESIS TODAY, VERIFIED WITH CURTIS HUGHES. CONSENT FORM PLACE IN THE PATIENT'S CHART.
[2017-11-20] MEDS: Magnesium 1GM/D5W 100ML PREMIX 100 ML IV SCH ×2 (13:34→14:38)
[2017-11-20] MEDS ORDERED: ALBUTEROL FS 2.5 MG/0.5 ML VIAL.NEB NEB PRN (18:30)
[2017-11-20] MEDS: LEVOFLOXACIN 250 MG /D5W 50 ML 250 MG in PREMIX 1 EA IV SCH (18:45)
--- NOTE | 2017-11-20 19:19 | NUR ---
MS RN CLOSING NOTES POST THORACENTESIS TODAY WITH 900ML FLUID DRAINAGE OUTPUT LIGHT GREEN COLOR, PATIENT APPEARS WEAK AND EPISODE OF NON PRODUCTIVE COUGH, OXYGEN 88-90% ON 2L VIA NC. NOTIFIED DR. MEMBRENO ORDERED ALBUTEROL VIA NEB Q 4HOUR PRN, INFORMED RT TO ADMINISTER NEB, SPOKE WITH VASILE AT 1845. BLOOD SUGAR MONITORED WITH ISS PARAMETER GIVEN. MAGNESIUM SUPPLEMENTED TODAY. AFEBRILE DURING THE SHIFT. SAFETY PRECAUTION MAINTAINED. ENDORSED TO NIGHT RN.
--- NOTE | 2017-11-20 19:50 | NUR ---
RN OPENING NOTES RECEIVED REPORT FROM GELACIO MONROY. Pt HAD RT SIDED THORACENTESIS EARLIER TODAY. WILL HAVE LT SIDED THORACENTESIS TOMORROW. SON & FAMILY VISITING AT BEDSIDE. SON SIGNED CONSENT FORM AT BEDSIDE DUE TO Pt's LETHARGY. Pt IS AROUSABLE TO NAME, AND IS VERBAL, BUT IS VERY LETHARGIC AND SLEEPY. Pt IS SHOWING S/S OF SOB. ON 4L NC DESATING 82%. RT CALLED FOR BREATHING TREATMENT AND DEEP SUCTIONING. INCREASED 02 TO 10L, O2 SAT WENT UP TO 88%. WILL INFORM
--- NOTE | 2017-11-20 20:24 | NUR ---
PT WAS SAT 87% ON SIMPLE MASK 10L. BREATHING TX WAS GIVEN AT THIS TIME. SX PALE YELLOW THICK SECRETIONS. PUT PT ON NONREBREATHER AT 15L. PT IS SAT 95% AT THIS TIME.
[2017-11-20] MEDS: NYSTATIN TOP POWDER 15 GM BOTTLE TP SCH (20:30)
--- NOTE | 2017-11-20 20:30 | NUR ---
RN NOTES INFORMED DR FANG OF Pt's CHANGE IN CONDITION. O2 SAT AT 94% ON MAX CAPACITY O2 ON A NON-REBREATHER MASK. WAITING FOR ORDERS.
--- NOTE | 2017-11-20 20:37 | NUR ---
RN NOTES DR FANG ORDERED STAT ABG.
--- NOTE | 2017-11-20 20:38 | NUR ---
RN NOTES STAT ABG ORDERED.
[2017-11-20 21:00] LABS: ABG BASE EXCESS 8.3 mmol/L; ABG PCO2 86.4 mmHg (35.0-45.0); ABG PH 7.258 (7.350-7.450); ABG PO2 67.1 mmHg (75.0-100.0); AaDO2 559.5 mmHg; COHb 0.3 % (0.5-1.5); MetHb 0.6 % (0.0-1.5); O2Hb 89.2 % (94.0-97.0); SITE, ABG Right Radial; VENT MODE, BG NONREBREATHER
--- NOTE | 2017-11-20 21:05 | NUR ---
RN NOTES SENT PICTURE OF ABG RESULTS TO DR FANG. pH 7.258 pCO2 86.4 pO2 67.1 HCO3 37.7
--- NOTE | 2017-11-20 21:30 | NUR ---
RN NOTES GAVE ENDORSEMENT TO SENIOR FIRE PROTECTION ENGINEER ERIK FOR Pt's CEDRIC.
--- NOTE | 2017-11-20 21:30 | NUR ---
RN NOTES Pt BEING TRANSFERRED TO ICU. TRANSFER ORDER PLACED BY DR FANG.
--- NOTE | 2017-11-20 22:07 | NUR ---
PT RECEIVED ON NRB. PT PLACED ON BIPAP. SETTINGS CHARTED. ALARMS SET AND AUDIBLE. PT TOLERATING BIPAP AT THIS TIME Addendum: 11/20/17 at 2209 by CORBY ABRAHAM RT Amended: Links added.
--- NOTE | 2017-11-20 22:15 | NUR ---
CAKE PULLER, RECEIVED THE PT FROM MED/SURG ,TO ICU PT WITH NONREBREATHER OXYGEN SAT 84.%, BIPAP STARTED, SETTINGS 20/5,RATE 16,FIO2 100%.SAT 100%. IV RT HAND 22G.HOB ELEVATED. AFEBRILE WILL CONTINUE TO MONITOR.
[2017-11-20] MEDS: *INSULIN REGULAR(HUMULIN R)HUM 100 UNIT/ML VIAL SQ PRN (22:36)
[2017-11-20 23:29] LABS: ABG BASE EXCESS 8.3 mmol/L; ABG OXYGEN SATURATION 96.3 % (92.0-98.5); ABG PCO2 81.4 mmHg (35.0-45.0); ABG PH 7.274 (7.350-7.450); ABG PO2 100.6 mmHg (75.0-100.0); AaDO2 384.3 mmHg; COHb 0.3 % (0.5-1.5); MetHb 0.4 % (0.0-1.5); O2Hb 95.6 % (94.0-97.0); SITE, ABG Right Brachial; VENT MODE, BG s/t 16 20/5 80%
--- NOTE | 2017-11-20 23:48 | NUR ---
POISING INSPECTOR. ABG DONE. RESULT DR CORREIA MADE AWARE, NO NEW ORDERS.
[2017-11-21] VITALS (53 sets, daily range): BP systolic 76–139; BP diastolic 22–75
--- NOTE | 2017-11-21 03:42 | NUR ---
VALUE ENGINEER. AM CARE, ORAL CARE, BED BATH GIVEN. LINEN CHANGED. REMAINING SAME BIPAP SETTING TOLERATED WELL. SAT 99%. NO ACUTE DISTRESS NOTED. MANAGEMENT LIAISON SHOWING AV PACING. HOB ELEVATED. TURN AND REPOSITION Q2H. PT IS LETHARGIC.WILL CONTINUE TO MONITOR VITALS.
--- NOTE | 2017-11-21 06:50 | NUR ---
GASKET WINDER. PT THIS MORNING GOING TO BE LT SIDE THORACENTESIS. STILL BIPAP ON.
[2017-11-21] MEDS: FUROSEMIDE 40 MG/4 ML VIAL IV SCH ×2 (09:33→18:13)
[2017-11-21] MEDS: LEVOTHYROXINE SODIUM 100 MCG TABLET PO SCH (09:33)
[2017-11-21] MEDS: ZINC SULFATE 220 MG CAPSULE PO SCH (09:34)
[2017-11-21] MEDS: DOCUSATE SODIUM 100 MG CAPSULE PO SCH (09:34)
[2017-11-21] MEDS: MULTIVIT, IRON, MIN NO. 8, FA 1 TAB PO SCH (09:34)
[2017-11-21] MEDS: FOLIC ACID 1 MG TABLET PO SCH (09:34)
[2017-11-21] MEDS: BLOOD SUGAR DIAGNOSTIC 1 EACH STRIP VI SCH ×4 (09:34→22:57)
[2017-11-21] MEDS: ASCORBIC ACID 500 MG TABLET PO SCH (09:41)
[2017-11-21] MEDS: AMLODIPINE BESYLATE 5 MG TABLET PO SCH ×2 (09:41→17:00)
[2017-11-21] MEDS: LOSARTAN POTASSIUM 50 MG TABLET PO SCH (09:42)
[2017-11-21] MEDS: METOPROLOL TARTRATE 25 MG TABLET PO SCH ×2 (09:43→17:00)
[2017-11-21] MEDS: NYSTATIN TOP POWDER 15 GM BOTTLE TP SCH ×2 (09:47→20:30)
[2017-11-21] MEDS: RALOXIFENE 60 MG TABLET PO SCH ×2 (09:49→10:04)
[2017-11-21] MEDS: ACETAMINOPHEN 325 MG TABLET PO PRN (10:05)
[2017-11-21 10:14] LABS: ABG BASE EXCESS 9.5 mmol/L; ABG PCO2 60.8 mmHg (35.0-45.0); ABG PH 7.389 (7.350-7.450); ABG PO2 103.5 mmHg (75.0-100.0); AaDO2 148.2 mmHg; COHb 0.3 % (0.5-1.5); MetHb 0.5 % (0.0-1.5); O2Hb 96.2 % (94.0-97.0); SITE, ABG Right Radial
[2017-11-21] MEDS: ALBUTEROL FS 2.5 MG/0.5 ML VIAL.NEB NEB SCH ×4 (10:52→23:37)
[2017-11-21] MEDS: PROSOURCE / PROSTAT (PYXIS) 30 ML UDC PO SCH (12:27)
[2017-11-21] MEDS: *INSULIN REGULAR(HUMULIN R)HUM 100 UNIT/ML VIAL SQ PRN ×3 (12:30→22:51)
--- NOTE | 2017-11-21 16:00 | NUR ---
[facility] states no left sided thoracentesis orders. Dr Jorgensen notified. OK to place order for Left-sided thoracentesis.
--- NOTE | 2017-11-21 17:00 | NUR ---
CXR report from 11/21/17 describes tracheotomy tube in place, however to is on BIPAP. [facility] radiology notified.
--- NOTE | 2017-11-21 18:00 | NUR ---
RT NOTE: ALERT PATIENT RECEIVED ON BIPAP. TOLERATING WELL. MEPILEX CHANGED AND NO REDNESS NOTED AT THIS TIME. AMBU BAG AT [facility].
[2017-11-21] MEDS: LEVOFLOXACIN 250 MG /D5W 50 ML 250 MG in PREMIX 1 EA IV SCH (18:15)
--- NOTE | 2017-11-21 19:58 | NUR ---
MAKE UP OPERATOR. INITIAL ASSESSMENT. RECEIVED THE PT REST ON THE BED. AWAKE. ALERT, FOLLOW COMMANDS. BIPAP ON. SETTINGS 20/5, RATE 16,FIO2 30%. SAT 98%, NO ACUTE DISTRESS NOTED. SENIOR CAPITAL MARKETS SPECIALIST SHOWING V PACING. IV RT HAND 22G. SALINE LOCK. HOB ELEVATED. WILL CONTINUE TO MONITOR VITALS.
[2017-11-21] MEDS: HYDROCODONE/APAP 5/325MG 1 EACH TABLET PO PRN (23:34)
[2017-11-22] VITALS (41 sets, daily range): BP systolic 96–141; BP diastolic 44–76
[2017-11-22] MEDS: ALBUTEROL FS 2.5 MG/0.5 ML VIAL.NEB NEB SCH ×6 (03:50→22:46)
--- NOTE | 2017-11-22 04:01 | NUR ---
CONSULTING SALES EXECUTIVE. AM CARE, ORAL CARE, BED BATH GIVEN. LINEN CHANGED. REMAINING SAME BIPAP SETTING TOLERATED WELL. SAT 98%. NO ACUTE DISTRESS NOTED, EDUCATION RN SHOWING NSR. IV RT HAD SALINE LOCK, HOB ELEVATED. TURN AND REPOSITION Q2H, WILL CONTINUE TO MONITOR VITALS,
[2017-11-22] MEDS: HYDROCODONE/APAP 5/325MG 1 EACH TABLET PO PRN (05:48)
[2017-11-22] MEDS: BLOOD SUGAR DIAGNOSTIC 1 EACH STRIP VI SCH ×4 (08:16→21:25)
[2017-11-22] MEDS: LOSARTAN POTASSIUM 50 MG TABLET PO SCH (08:27)
[2017-11-22] MEDS: LEVOTHYROXINE SODIUM 100 MCG TABLET PO SCH (08:27)
[2017-11-22] MEDS: FOLIC ACID 1 MG TABLET PO SCH (08:27)
[2017-11-22] MEDS: ZINC SULFATE 220 MG CAPSULE PO SCH (08:27)
[2017-11-22] MEDS: DOCUSATE SODIUM 100 MG CAPSULE PO SCH (08:28)
[2017-11-22] MEDS: ASCORBIC ACID 500 MG TABLET PO SCH (08:28)
[2017-11-22] MEDS: METOPROLOL TARTRATE 25 MG TABLET PO SCH ×2 (08:28→18:03)
[2017-11-22] MEDS: AMLODIPINE BESYLATE 5 MG TABLET PO SCH ×2 (08:28→18:04)
[2017-11-22] MEDS: MULTIVIT, IRON, MIN NO. 8, FA 1 TAB PO SCH (08:28)
[2017-11-22] MEDS: FUROSEMIDE 40 MG/4 ML VIAL IV SCH ×2 (08:29→18:04)
[2017-11-22 08:32] LABS: ABG BASE EXCESS 10.4 mmol/L; ABG OXYGEN SATURATION 94.2 % (92.0-98.5); ABG PH 7.461 (7.350-7.450); ABG PO2 78.3 mmHg (75.0-100.0); AaDO2 90.2 mmHg; COHb 0.3 % (0.5-1.5); MetHb 0.5 % (0.0-1.5); O2Hb 93.4 % (94.0-97.0); SITE, ABG Left Radial
[2017-11-22] MEDS: PROSOURCE / PROSTAT (PYXIS) 30 ML UDC PO SCH (08:38)
[2017-11-22] MEDS: RALOXIFENE 60 MG TABLET PO SCH (08:38)
[2017-11-22] MEDS: NYSTATIN TOP POWDER 15 GM BOTTLE TP SCH ×2 (08:57→21:23)
--- NOTE | 2017-11-22 10:20 | NUR ---
Thoracentesis Left side, completed by Dr. Monreal. 700 ml off. will send to lab for Tot. Prot, Glucose, LDH. pt tolerated procedure well, denies pain, denies sob, cough.
--- NOTE | 2017-11-22 10:45 | NUR ---
Left thoracentesis completed. cxr obtained, pl fl dropped off at lab, loged in.
[2017-11-22] MEDS: *INSULIN REGULAR(HUMULIN R)HUM 100 UNIT/ML VIAL SQ PRN ×2 (12:25→21:30)
[2017-11-22] MEDS: LEVOFLOXACIN 250 MG /D5W 50 ML 250 MG in PREMIX 1 EA IV SCH (18:04)
[2017-11-22] MEDS: INSULIN REGULAR, HUMAN 100 UNIT/ML 3 ML VIAL SQ PRN (18:25)
[2017-11-22] MEDS: ACETAMINOPHEN 325 MG TABLET PO PRN (18:58)
--- NOTE | 2017-11-22 19:35 | NUR ---
RN NOTES RECEIVED PT AWAKE ALERT ORIENTED X 3 ABLE TO VERBALIZED NEEDS AND FEELINGS. NO ACUTE RESP DISTRESS WITH O2 2LPM VIA NC TOLERATED WELL. BILATERAL BREATH SOUND DIMINISHED. SATING 96%. V-PACING ON TELE MONITOR HR 80. IV SITE ON LEFT WRIST G 22 INTACT AND PATENT. NO SIGNIFICANT CEDRIC FROM S/P THORACENTESIS. REPOSITIONED PT COMFORTABLE. KEPT PT CLEAN AND COMFORTABLE IN BED. OFFLOADED EXT WITH PILLOWS WILL CONTINUE TO MONITOR.
--- NOTE | 2017-11-22 22:56 | NUR ---
RCVD PT ON 2L NC. PLACED PT ON NOCTURNAL BIPAP PER MD'S ORDERED. PT TOLERATED WELL , NO RESPIRATORY DISTRESS NOTED. SPO2 100% CHANGED THE MASK TO MEDIUM SIZE . NO WOUND OR SORE AROUND THE FACE. CURTIS ZUNIGA NOTIFIED.
--- NOTE | 2017-11-22 23:20 | NUR ---
RN NOTES PT REFUSED NOCTURNAL BIPAP TO RT RISK AND BENEFITS EXPLAINED, PT VERBALIZED UNDERSTANDING NUT BIPAP STILL REFUSED. PLACE PT BACK TO O2 2LPM VIA NC TOLERATED WELL SATING 98% NO RESP. DISTRESS PRESENT
[2017-11-23] VITALS (21 sets, daily range): BP systolic 101–141; BP diastolic 30–81
[2017-11-23] MEDS: HYDROCODONE/APAP 5/325MG 1 EACH TABLET PO PRN (01:31)
[2017-11-23] MEDS: ALBUTEROL FS 2.5 MG/0.5 ML VIAL.NEB NEB SCH ×5 (03:21→19:39)
[2017-11-23 04:19] LABS: BASOPHILS % (AUTO) 0.3 % (0.0-2.0); EOSINOPHILS % (AUTO) 2.5 % (0.0-6.0); HEMATOCRIT 25 % (33-45); HEMOGLOBIN 8.1 g/dL (11.5-14.8); LYMPHOCYTES # (AUTO) 1.7 /CMM (0.8-4.8); LYMPHOCYTES % (AUTO) 19.2 % (20.0-44.0); MEAN CORPUSCULAR HGB CONC 33 g/dl (31.0-36.0); MEAN CORPUSCULAR VOLUME 87 fL (82-100); MONOCYTES # (AUTO) 0.8 /CMM (0.1-1.30); MONOCYTES % (AUTO) 9.7 % (2.0-12.0); NEUTROPHILS # (AUTO) 5.9 /CMM (1.8-8.9); NEUTROPHILS % (AUTO) 68.3 % (43.0-81.0); PLATELET COUNT (AUTO) 161 /CMM (150-450); RED BLOOD CELL COUNT(AUTO) 2.87 MIL/uL (4.0-5.2); WHITE BLOOD COUNT (AUTO) 8.6 K/uL (4.3-11.0)
[2017-11-23 04:45] LABS: CALCIUM, SERUM 8.1 mg/dL (8.5-10.1); CARBON DIOXIDE 39 mmol/L (21-32); CHLORIDE 100 mmol/L (98-107); CREATININE 1.1 mg/dL (0.6-1.3); GLUCOSE 91 mg/dL (74-106); MAGNESIUM 1.4 mg/dL (1.8-2.4); POTASSIUM 3.1 mmol/L (3.5-5.1); SODIUM SERUM 141 mmol/L (136-145); UREA NITROGEN, BLOOD 31 mg/dL (7-18)
--- NOTE | 2017-11-23 05:09 | NUR ---
RN NOTES PT ASLEEP AT THIS TIME. PRN PAIN MEDICINE EFFECTIVE AFTER 1 HOUR, EASILY AROUSABLE. O2 2LPM VIA NC TOLERATED WELL SATING 100% ALL NEEDS ATTENDED. AFEBRILE. NO SIGNIFICANT CEDRIC THROUGHOUT THE SHIFT. KEPT PT CLEAN AND COMFORTABLE IN BED. CALL LIGHT KEPT WITHIN EASY REACH. WILL ENDORSED CONTINUITY OF CARE TO AM NURSE.
--- NOTE | 2017-11-23 07:15 | NUR ---
BASIN TENDER NOTES RECEIVED PATIENT AOX3 , NOT IN ACUTE DISTRESS , DENIES SOB AND DISCOMFORT AT THIS TIME , SPO2 OF 95% VIA 2LPM NC , V PACING 80 ON BEDSIDE MONITOR , IV OF L WRIST # 22 PATENT AND INTACT SL , ALL NEEDS ATTENDED , BED ON LOW AND LOCKED POSITION , SIDE RAILS X2 CALL LIGHT WITHIN REACH , HOB@ 35 , WILL CONTINUE TO MONITOR .
[2017-11-23] MEDS: LEVOTHYROXINE SODIUM 100 MCG TABLET PO SCH (07:44)
[2017-11-23] MEDS: BLOOD SUGAR DIAGNOSTIC 1 EACH STRIP VI SCH ×4 (07:45→22:16)
--- NOTE | 2017-11-23 08:00 | NUR ---
RETAIL MARKETING MANAGER NOTES INSERTED LAND CATHETER ORDERED , PT IS GETTING LASIX 40MG ORDERED , INCONTINENT , PT TOLERATED FC INSERTION , FC DRAINING VIA GRAVITY WITH CLOUDY YELLOW URINE , WILL CONTINUE TO MONITOR
[2017-11-23] MEDS: DOCUSATE SODIUM 100 MG CAPSULE PO SCH (08:34)
[2017-11-23] MEDS: RALOXIFENE 60 MG TABLET PO SCH (08:34)
[2017-11-23] MEDS: ASCORBIC ACID 500 MG TABLET PO SCH (08:34)
[2017-11-23] MEDS: ZINC SULFATE 220 MG CAPSULE PO SCH (08:34)
[2017-11-23] MEDS: FOLIC ACID 1 MG TABLET PO SCH (08:34)
[2017-11-23] MEDS: MULTIVIT, IRON, MIN NO. 8, FA 1 TAB PO SCH (08:34)
[2017-11-23] MEDS: FUROSEMIDE 40 MG/4 ML VIAL IV SCH ×2 (08:35→17:00)
[2017-11-23] MEDS: METOPROLOL TARTRATE 25 MG TABLET PO SCH ×2 (08:35→17:01)
[2017-11-23] MEDS: PROSOURCE / PROSTAT (PYXIS) 30 ML UDC PO SCH (08:36)
[2017-11-23] MEDS: NYSTATIN TOP POWDER 15 GM BOTTLE TP SCH ×2 (08:36→22:16)
[2017-11-23] MEDS: LOSARTAN POTASSIUM 50 MG TABLET PO SCH (08:36)
[2017-11-23] MEDS: AMLODIPINE BESYLATE 5 MG TABLET PO SCH ×2 (08:36→17:01)
--- NOTE | 2017-11-23 09:26 | NUR ---
MECHANICAL ENGINEERING DRAFTSPERSON NOTES REPORT GIVEN TO CLAUDE FOR CONTINUITY OF CARE , ALL QUESTIONS ANSWERED .
[2017-11-23] MEDS ORDERED: POTASSIUM CHLORIDE 20 MEQ TAB.PRT.SR PO ONE (10:30)
[2017-11-23] MEDS: Magnesium 1GM/D5W 100ML PREMIX 100 ML IV SCH ×4 (10:47→14:14)
[2017-11-23] MEDS ORDERED: POTASSIUM CHLORIDE 20 MEQ POWDER PACKET PO ONE (11:00)
[2017-11-23] MEDS: INSULIN REGULAR, HUMAN 100 UNIT/ML 3 ML VIAL SQ PRN ×3 (12:59→22:14)
[2017-11-23] MEDS ORDERED: LEVOFLOXACIN (250MG) 250 MG TABLET PO SCH (18:00)
--- NOTE | 2017-11-23 19:00 | NUR ---
RN NOTE PT TRANSFERRED TO TELEMETRY RM 110 AT 1730, PT REMAINED STABLE, FAMILY AWARE. WILL ENDORSE TO COMPLIANCE ASSOCIATE.
--- NOTE | 2017-11-23 19:50 | NUR ---
RT NOTE PLACED PATIENT ON BIPAP WITH CURRENT SETTINGS OF 15/5, BUR 12, 30%. PATIENT REFUSED BIPAP AFTER 10 MINUTES. EXPLAINED RISKS AND BENEFITS. PATIENT STILL REFUSED. NO SOB NOTED. PATIENT STABLE ON NASAL CANNULA @ 28%. WILL CONTINUE TO MONITOR. Addendum: 11/23/17 at 2147 by JUSTEN BRODY RT LB ACEVEDO, NOTIFIED AND IS AWARE.
--- NOTE | 2017-11-23 20:53 | NUR ---
RN TEL INITIAL NOTES RECEIVED PATIENT AOX3 , NOT IN ACUTE DISTRESS , DENIES SOB AND DISCOMFORT AT THIS TIME , SPO2 OF 95% VIA 2LPM NC , V PACING 80 , IV OF L WRIST # 22 PATENT AND INTACT SL , ALL NEEDS ATTENDED , BED ON LOW AND LOCKED POSITION , SIDE RAILS X2 CALL LIGHT WITHIN REACH , HOB@ 35 , WILL CONTINUE TO MONITOR
[2017-11-24] VITALS (7 sets, daily range): BP systolic 101–142; BP diastolic 52–58
[2017-11-24] MEDS: ALBUTEROL FS 2.5 MG/0.5 ML VIAL.NEB NEB SCH ×7 (00:05→22:46)
[2017-11-24] MEDS: HYDROCODONE/APAP 5/325MG 1 EACH TABLET PO PRN ×2 (05:33→18:14)
--- NOTE | 2017-11-24 06:09 | NUR ---
RN TEL CLOSING NOTES ENDORSED PATIENT AOX3 , NOT IN ACUTE DISTRESS , DENIES SOB, C/O SACRAL PS PAIN AFTER ADLS, NORCO 5-325MG PO PRN GIVEN , REPOSITIONED Q2H QS, SPO2 OF 95% VIA 2LPM NC , V PACING 80 , IV OF L WRIST # 22 PATENT AND INTACT SL , ALL NEEDS ATTENDED , BED ON LOW AND LOCKED POSITION , SIDE RAILS X2 CALL LIGHT WITHIN REACH , HOB@ 35 , WILL CONTINUE TO MONITOR
[2017-11-24 06:25] LABS: BASOPHILS # (AUTO) 0.1 /CMM (0.0-0.2); BASOPHILS % (AUTO) 0.6 % (0.0-2.0); EOSINOPHILS % (AUTO) 2.4 % (0.0-6.0); HEMATOCRIT 27 % (33-45); HEMOGLOBIN 8.9 g/dL (11.5-14.8); LYMPHOCYTES # (AUTO) 1.6 /CMM (0.8-4.8); MEAN CORPUSCULAR HGB CONC 33 g/dl (31.0-36.0); MEAN CORPUSCULAR VOLUME 87 fL (82-100); MONOCYTES # (AUTO) 0.8 /CMM (0.1-1.30); NEUTROPHILS # (AUTO) 8.5 /CMM (1.8-8.9); PLATELET COUNT (AUTO) 190 /CMM (150-450); RED BLOOD CELL COUNT(AUTO) 3.13 MIL/uL (4.0-5.2); WHITE BLOOD COUNT (AUTO) 11.1 K/uL (4.3-11.0)
[2017-11-24 06:34] LABS: CALCIUM, SERUM 8.2 mg/dL (8.5-10.1); GLUCOSE 68 mg/dL (74-106); MAGNESIUM 2.2 mg/dL (1.8-2.4); UREA NITROGEN, BLOOD 26 mg/dL (7-18)
[2017-11-24 06:43] LABS: CHLORIDE 100 mmol/L (98-107); POTASSIUM 3.6 mmol/L (3.5-5.1); SODIUM SERUM 145 mmol/L (136-145)
[2017-11-24 06:55] LABS: CARBON DIOXIDE 43 mmol/L (21-32)
--- NOTE | 2017-11-24 07:36 | NUR ---
RN NOTES RECEIVED PT A&0X3, ON 2L NC SATING WELL NO SOB OR DISTRESS NOTED. V PACING ON THE TELE CASSIA HR 80. LAND DRAINING TO GRAVITY. LW 22G IV SITE INTACT WITH NO IVF. BED LOCKED AND IN LOWEST POSITION, CALL LIGHT WITHIN REACH, SIDE RAILS UPX3, WILL CONT TO CASSIA.
[2017-11-24] MEDS: FUROSEMIDE 40 MG/4 ML VIAL IV SCH ×2 (08:29→17:17)
[2017-11-24] MEDS: ZINC SULFATE 220 MG CAPSULE PO SCH (08:30)
[2017-11-24] MEDS: MULTIVIT, IRON, MIN NO. 8, FA 1 TAB PO SCH (08:30)
[2017-11-24] MEDS: METOPROLOL TARTRATE 25 MG TABLET PO SCH ×2 (08:30→17:00)
[2017-11-24] MEDS: RALOXIFENE 60 MG TABLET PO SCH (08:30)
[2017-11-24] MEDS: DOCUSATE SODIUM 100 MG CAPSULE PO SCH (08:30)
[2017-11-24] MEDS: AMLODIPINE BESYLATE 5 MG TABLET PO SCH ×2 (08:30→17:00)
[2017-11-24] MEDS: LOSARTAN POTASSIUM 50 MG TABLET PO SCH (08:31)
[2017-11-24] MEDS: BLOOD SUGAR DIAGNOSTIC 1 EACH STRIP VI SCH ×4 (08:31→21:48)
[2017-11-24] MEDS: FOLIC ACID 1 MG TABLET PO SCH (08:31)
[2017-11-24] MEDS: PROSOURCE / PROSTAT (PYXIS) 30 ML UDC PO SCH (08:31)
[2017-11-24] MEDS: NYSTATIN TOP POWDER 15 GM BOTTLE TP SCH ×2 (08:31→21:43)
[2017-11-24] MEDS: ASCORBIC ACID 500 MG TABLET PO SCH (08:31)
[2017-11-24] MEDS: LEVOTHYROXINE SODIUM 100 MCG TABLET PO SCH (08:35)
[2017-11-24] MEDS: INSULIN REGULAR, HUMAN 100 UNIT/ML 3 ML VIAL SQ PRN ×2 (12:18→17:36)
--- NOTE | 2017-11-24 19:45 | NUR ---
TELERN ASLEEP, RECENTLY HAD PAIN MED. V PACED ON THE MONITOR. CLOSELY WATCHED.
[2017-11-24] MEDS: *INSULIN REGULAR(HUMULIN R)HUM 100 UNIT/ML VIAL SQ PRN (22:01)
--- NOTE | 2017-11-24 22:03 | NUR ---
TELERN BS 191, 3 UNITS REGULAR INSULIN SQ ADMINISTERED PER SLIDING SCALE. SNACKS PROVIDED.
--- NOTE | 2017-11-24 22:30 | NUR ---
TELERN HS CARE DONE, NEEDS HELP ON BASIC ADLS. NYSTATIN POWDER ON ISIS BREAST FOLDS AND GROIN AREAS. PERIANAL Z NIMESH APPLIED, STATING AND MILD DISCOMFORTS, . DIAPER OFF FOR NOW, LAND TO GRAVITY, OUTPUT MONITORED. REPOSITIONED FOR COMFORT. ALL NEEDS ATTENDED.
[2017-11-25] VITALS (7 sets, daily range): BP systolic 103–115; BP diastolic 47–54
[2017-11-25] MEDS: ALBUTEROL FS 2.5 MG/0.5 ML VIAL.NEB NEB SCH ×6 (03:16→23:38)
--- NOTE | 2017-11-25 06:51 | NUR ---
TELERN REMAINS UNCHANGED. LABS DRAWN, NO DISCOMFORTS MADE. CONTINUED MONITORING.
[2017-11-25 06:54] LABS: BASOPHILS % (AUTO) 0.2 % (0.0-2.0); EOSINOPHILS % (AUTO) 2.5 % (0.0-6.0); HEMATOCRIT 27 % (33-45); HEMOGLOBIN 8.6 g/dL (11.5-14.8); LYMPHOCYTES # (AUTO) 1.8 /CMM (0.8-4.8); LYMPHOCYTES % (AUTO) 14.7 % (20.0-44.0); MEAN CORPUSCULAR HGB CONC 32 g/dl (31.0-36.0); MEAN CORPUSCULAR VOLUME 88 fL (82-100); MONOCYTES # (AUTO) 0.7 /CMM (0.1-1.30); NEUTROPHILS # (AUTO) 9.4 /CMM (1.8-8.9); NEUTROPHILS % (AUTO) 76.6 % (43.0-81.0); PLATELET COUNT (AUTO) 173 /CMM (150-450); RDW COEFFICIENT OF VARIATION 19.6 (11.5-15.0); RED BLOOD CELL COUNT(AUTO) 3.07 MIL/uL (4.0-5.2); WHITE BLOOD COUNT (AUTO) 12.2 K/uL (4.3-11.0)
[2017-11-25 07:03] LABS: CALCIUM, SERUM 8.1 mg/dL (8.5-10.1); CHLORIDE 96 mmol/L (98-107); GLUCOSE 156 mg/dL (74-106); POTASSIUM 3.9 mmol/L (3.5-5.1); SODIUM SERUM 138 mmol/L (136-145); UREA NITROGEN, BLOOD 25 mg/dL (7-18)
[2017-11-25 07:45] LABS: CARBON DIOXIDE 44 mmol/L (21-32)
--- NOTE | 2017-11-25 07:52 | NUR ---
RN NOTES RECEIVED PATIENT ALERT AND ORIENTED X 3 SHE IS ABLE TO MAKE THINGS KNOWN AND VERBALIZE NEEDS. ON CONTINUOUS O2 OF 2L VIA NC WITH NO DISTRESS NOTED. BREATHING EVEN AND UNLABORED. ON BUNDLE BREAKER OF V PACING HR OF 76. LEFT WRIST IV SITE INTACT AND PATENT. ALL NEEDS ATTENDED AND ASSISTED. BED LOW AND LOCKED POSITION, WILL CONTINUE TO MONITOR CONTINUITY OF CARE.
[2017-11-25] MEDS: BLOOD SUGAR DIAGNOSTIC 1 EACH STRIP VI SCH ×4 (08:15→21:03)
[2017-11-25] MEDS: METOPROLOL TARTRATE 25 MG TABLET PO SCH ×2 (08:16→16:41)
[2017-11-25] MEDS: DOCUSATE SODIUM 100 MG CAPSULE PO SCH (08:16)
[2017-11-25] MEDS: FOLIC ACID 1 MG TABLET PO SCH (08:17)
[2017-11-25] MEDS: LEVOTHYROXINE SODIUM 100 MCG TABLET PO SCH (08:17)
[2017-11-25] MEDS: RALOXIFENE 60 MG TABLET PO SCH (08:17)
[2017-11-25] MEDS: ASCORBIC ACID 500 MG TABLET PO SCH (08:17)
[2017-11-25] MEDS: AMLODIPINE BESYLATE 5 MG TABLET PO SCH ×2 (08:17→16:42)
[2017-11-25] MEDS: FUROSEMIDE 40 MG/4 ML VIAL IV SCH ×2 (08:17→16:27)
[2017-11-25] MEDS: LOSARTAN POTASSIUM 50 MG TABLET PO SCH (08:17)
[2017-11-25] MEDS: ZINC SULFATE 220 MG CAPSULE PO SCH (08:17)
[2017-11-25] MEDS: MULTIVIT, IRON, MIN NO. 8, FA 1 TAB PO SCH (08:17)
[2017-11-25] MEDS: INSULIN REGULAR, HUMAN 100 UNIT/ML 3 ML VIAL SQ PRN ×4 (08:18→21:17)
[2017-11-25] MEDS: PROSOURCE / PROSTAT (PYXIS) 30 ML UDC PO SCH (08:19)
[2017-11-25] MEDS: NYSTATIN TOP POWDER 15 GM BOTTLE TP SCH ×2 (08:20→20:51)
[2017-11-25] MEDS: HYDROCODONE/APAP 5/325MG 1 EACH TABLET PO PRN ×2 (09:14→16:40)
[2017-11-25] MEDS ORDERED: acetaZOLAMIDE SODIUM 500 MG/VIAL VIAL IV ONE (17:00)
--- NOTE | 2017-11-25 19:11 | NUR ---
RN NOTE PATIENT REMAINED STABLE THROUGHOUT SHIFT. NO ACUTE CHANGES OR DISTRESS NOTED. WILL ENDORSE TO NEXT SHIFT TO MONITOR CONTINUITY OF CARE.
--- NOTE | 2017-11-25 19:36 | NUR ---
RN TEL INITIAL NOTES RECEIVED PATIENT ALERT AND ORIENTED X 3 SHE IS ABLE TO MAKE THINGS KNOWN AND VERBALIZE NEEDS. ON CONTINUOUS O2 OF 2L VIA NC WITH NO DISTRESS NOTED. BREATHING EVEN AND UNLABORED. ON BUSINESS ANALYTICS INTERN OF V PACING HR OF 79. LEFT WRIST IV SITE INTACT AND PATENT. ALL NEEDS ATTENDED AND ASSISTED. BED LOW AND LOCKED POSITION, WILL CONTINUE TO MONITOR CONTINUITY OF CARE.
[2017-11-25] MEDS: PHENYLEPHRINE/SHARK LIVER 1 EA SUPP.RECT RC SCH (21:03)
[2017-11-26] VITALS: BP 105/50
[2017-11-26] MEDS: HYDROCODONE/APAP 5/325MG 1 EACH TABLET PO PRN (00:42)
[2017-11-26] MEDS: ALBUTEROL FS 2.5 MG/0.5 ML VIAL.NEB NEB SCH ×6 (03:53→23:50)
[2017-11-26 04:42] VITALS: BP 103/50
--- NOTE | 2017-11-26 05:56 | NUR ---
RN TEL CLOSING NOTES ENDORSED PATIENT ALERT AND ORIENTED X 3 SHE IS ABLE TO MAKE THINGS KNOWN AND VERBALIZE NEEDS. ON CONTINUOUS O2 OF 2L VIA NC WITH NO DISTRESS NOTED. BREATHING EVEN AND UNLABORED. ON PROFESSOR OF ENGLISH OF V PACING HR OF 70'S. LEFT WRIST IV SITE INTACT AND PATENT. ALL NEEDS ATTENDED AND ASSISTED. BED LOW AND LOCKED POSITION, WILL CONTINUE TO MONITOR CONTINUITY OF CARE.
[2017-11-26 06:31] LABS: CALCIUM, SERUM 8.1 mg/dL (8.5-10.1); CHLORIDE 97 mmol/L (98-107); GLUCOSE 113 mg/dL (74-106); POTASSIUM 3.4 mmol/L (3.5-5.1); SODIUM SERUM 139 mmol/L (136-145); UREA NITROGEN, BLOOD 27 mg/dL (7-18)
[2017-11-26 06:37] LABS: CARBON DIOXIDE 43 mmol/L (21-32)
[2017-11-26 07:18] LABS: BASOPHILS % (AUTO) 0.2 % (0.0-2.0); EOSINOPHILS % (AUTO) 2.7 % (0.0-6.0); HEMATOCRIT 26 % (33-45); HEMOGLOBIN 8.5 g/dL (11.5-14.8); LYMPHOCYTES # (AUTO) 2.3 /CMM (0.8-4.8); LYMPHOCYTES % (AUTO) 17.4 % (20.0-44.0); MEAN CORPUSCULAR HGB CONC 33 g/dl (31.0-36.0); MEAN CORPUSCULAR VOLUME 88 fL (82-100); MONOCYTES # (AUTO) 1.2 /CMM (0.1-1.30); MONOCYTES % (AUTO) 9.1 % (2.0-12.0); NEUTROPHILS # (AUTO) 9.3 /CMM (1.8-8.9); NEUTROPHILS % (AUTO) 70.6 % (43.0-81.0); PLATELET COUNT (AUTO) 183 /CMM (150-450); RED BLOOD CELL COUNT(AUTO) 2.93 MIL/uL (4.0-5.2); WHITE BLOOD COUNT (AUTO) 13.2 K/uL (4.3-11.0)
[2017-11-26 08:00] VITALS: BP 121/53
--- NOTE | 2017-11-26 08:00 | NUR ---
TELE1/RN AM SHIFT INITIAL NOTES RECEIVED PT ASLEEP IN BED, PT A/OX 4, AROUSEABLE. NO ACUTE CHANGE OF CONDITION, NO SOB. ON 2L O2 VIA N/C SATURATING @ 96%, LUNG SOUNDS DIMINISHED. ON TELE, V-PACING, HR 81. IV SITE FLUSHED, PATENT WITH NO S/S OF INFECTION, SL. LAND CATHETER INTACT WITH YELLOW URINE OUTPUT. BLOOD GLUCOSE CHECKED, 128, NO S/S OF HYPER OR HYPOGLYCEMIA, NO COVERAGE TO BE GIVEN PER SLIDING SCALE. PT IS COMFORTABLE. SCHEDULED AM MEDS TO BE GIVEN. CL WITHIN REACHED AND SAFETY MAINTAINED. ON GOING MONITORING.
[2017-11-26] MEDS: BLOOD SUGAR DIAGNOSTIC 1 EACH STRIP VI SCH ×4 (08:49→21:35)
[2017-11-26] MEDS: PROSOURCE / PROSTAT (PYXIS) 30 ML UDC PO SCH (08:50)
[2017-11-26] MEDS: LOSARTAN POTASSIUM 50 MG TABLET PO SCH (08:51)
[2017-11-26] MEDS: FUROSEMIDE 40 MG/4 ML VIAL IV SCH ×2 (08:51→17:12)
[2017-11-26] MEDS: NYSTATIN TOP POWDER 15 GM BOTTLE TP SCH ×2 (08:51→20:36)
[2017-11-26] MEDS: ASCORBIC ACID 500 MG TABLET PO SCH (08:51)
[2017-11-26] MEDS: METOPROLOL TARTRATE 25 MG TABLET PO SCH ×2 (08:52→17:00)
[2017-11-26] MEDS: FOLIC ACID 1 MG TABLET PO SCH (08:52)
[2017-11-26] MEDS: ZINC SULFATE 220 MG CAPSULE PO SCH (08:52)
[2017-11-26] MEDS: AMLODIPINE BESYLATE 5 MG TABLET PO SCH ×2 (08:52→17:00)
[2017-11-26] MEDS: DOCUSATE SODIUM 100 MG CAPSULE PO SCH (08:52)
[2017-11-26] MEDS: MULTIVIT, IRON, MIN NO. 8, FA 1 TAB PO SCH (08:52)
[2017-11-26] MEDS: RALOXIFENE 60 MG TABLET PO SCH (08:52)
[2017-11-26] MEDS: LEVOTHYROXINE SODIUM 100 MCG TABLET PO SCH (08:53)
[2017-11-26] MEDS: MEROPENEM 500 MG in IV NS 0.9% 50 ML IV SCH ×2 (11:51→23:41)
[2017-11-26] MEDS: INSULIN REGULAR, HUMAN 100 UNIT/ML 3 ML VIAL SQ PRN ×2 (11:57→17:18)
[2017-11-26 12:00] VITALS: BP 110/70
[2017-11-26] MEDS ORDERED: IV NS 0.9% 250 ML IV ONE (12:00)
[2017-11-26] MEDS ORDERED: IV NS 0.9% 250 ML BAG IV ONE (12:00)
[2017-11-26] MEDS ORDERED: MEROPENEM 1 G in IV NS 0.9% 100 ML IV SCH (13:00)
[2017-11-26] MEDS ORDERED: acetaZOLAMIDE SODIUM 500 MG/VIAL VIAL IV ONE (13:00)
[2017-11-26 16:00] VITALS: BP_SYST 98; BP_DIAS 47; BP_DIAS 49
--- NOTE | 2017-11-26 19:37 | NUR ---
MS1/RN AM SHIFT END NOTES ALL NEEDS MET. NO ACUTE CHANGE OF CONDITION NOTED DURING THE SHIFT. IV SITE INTACT, SL. LAND CATHETER INTACT. PT ENDORSED TO PM NURSE TO CONTINUE CARE. CL WITHIN REACHED AND SAFETY MAINTAINED.
[2017-11-26 20:00] VITALS: BP 104/49
[2017-11-26] MEDS: PHENYLEPHRINE/SHARK LIVER 1 EA SUPP.RECT RC SCH (21:35)
[2017-11-26] MEDS: *INSULIN REGULAR(HUMULIN R)HUM 100 UNIT/ML VIAL SQ PRN (21:40)
[2017-11-27] VITALS: BP 101/46
[2017-11-27] MEDS: ALBUTEROL FS 2.5 MG/0.5 ML VIAL.NEB NEB SCH ×4 (03:11→15:25)
[2017-11-27 04:00] VITALS: BP 100/52
[2017-11-27 07:08] LABS: CALCIUM, SERUM 8.4 mg/dL (8.5-10.1); CHLORIDE 99 mmol/L (98-107); CREATININE 1.2 mg/dL (0.6-1.3); GLUCOSE 108 mg/dL (74-106); POTASSIUM 3.3 mmol/L (3.5-5.1); SODIUM SERUM 141 mmol/L (136-145); UREA NITROGEN, BLOOD 32 mg/dL (7-18)
--- NOTE | 2017-11-27 07:30 | NUR ---
MS RN AM NOTES RECEIVED PT ASLEEP IN BED, PT A/OX 3, LETHARGIC BUT AROUSEABLE. ON 2L O2NO ACUTE CHANGE OF CONDITION, NO SOB. ON 2L O2 VIA N/C SATURATING @ 95%, LUNG SOUNDS DIMINISHED. DENIES PAIN/DISCOMFORT, LEFT WRIST IV SITE FLUSHED, SITE CLEAR. LAND CATHETER INTACT WITH YELLOW URINE OUTPUT. NO S/S OF HYPER OR HYPOGLYCEMIA, SEE NURSING FLOWSHEET FOR SKIN ISSUES. CARDIAC MECH SOFT DIET. SCHEDULED AM MEDS TO BE GIVEN. CL WITHIN REACHED AND SAFETY MAINTAINED. WILL CONTINUE TO MONITOR.
[2017-11-27 07:45] LABS: CARBON DIOXIDE 40 mmol/L (21-32)
[2017-11-27 07:57] LABS: BASOPHILS % (AUTO) 0.1 % (0.0-2.0); EOSINOPHILS % (AUTO) 1.9 % (0.0-6.0); HEMATOCRIT 25 % (33-45); HEMOGLOBIN 8.3 g/dL (11.5-14.8); LYMPHOCYTES # (AUTO) 1.9 /CMM (0.8-4.8); LYMPHOCYTES % (AUTO) 14.4 % (20.0-44.0); MEAN CORPUSCULAR HGB CONC 33 g/dl (31.0-36.0); MEAN CORPUSCULAR VOLUME 88 fL (82-100); MONOCYTES % (AUTO) 7.8 % (2.0-12.0); NEUTROPHILS # (AUTO) 10.2 /CMM (1.8-8.9); NEUTROPHILS % (AUTO) 75.8 % (43.0-81.0); PLATELET COUNT (AUTO) 175 /CMM (150-450); RDW COEFFICIENT OF VARIATION 17.8 (11.5-15.0); RED BLOOD CELL COUNT(AUTO) 2.83 MIL/uL (4.0-5.2); WHITE BLOOD COUNT (AUTO) 13.4 K/uL (4.3-11.0)
[2017-11-27 08:00] VITALS: BP 105/53
[2017-11-27] MEDS: BLOOD SUGAR DIAGNOSTIC 1 EACH STRIP VI SCH ×2 (08:24→11:15)
[2017-11-27] MEDS: LEVOTHYROXINE SODIUM 100 MCG TABLET PO SCH (08:25)
[2017-11-27] MEDS: MULTIVIT, IRON, MIN NO. 8, FA 1 TAB PO SCH (08:26)
[2017-11-27] MEDS: FUROSEMIDE 40 MG/4 ML VIAL IV SCH (08:26)
[2017-11-27] MEDS: METOPROLOL TARTRATE 25 MG TABLET PO SCH (08:26)
[2017-11-27] MEDS: DOCUSATE SODIUM 100 MG CAPSULE PO SCH (08:27)
[2017-11-27] MEDS: RALOXIFENE 60 MG TABLET PO SCH (08:27)
[2017-11-27] MEDS: ASCORBIC ACID 500 MG TABLET PO SCH (08:27)
[2017-11-27] MEDS: FOLIC ACID 1 MG TABLET PO SCH (08:27)
[2017-11-27] MEDS: ZINC SULFATE 220 MG CAPSULE PO SCH (08:27)
[2017-11-27] MEDS: PROSOURCE / PROSTAT (PYXIS) 30 ML UDC PO SCH (08:27)
[2017-11-27] MEDS: NYSTATIN TOP POWDER 15 GM BOTTLE TP SCH (08:28)
[2017-11-27] MEDS: AMLODIPINE BESYLATE 5 MG TABLET PO SCH (08:29)
[2017-11-27 08:30] VITALS: BP 105/53
[2017-11-27] MEDS: LOSARTAN POTASSIUM 50 MG TABLET PO SCH (08:30)
[2017-11-27] MEDS: INSULIN REGULAR, HUMAN 100 UNIT/ML 3 ML VIAL SQ PRN ×2 (08:41→11:29)
--- NOTE | 2017-11-27 09:30 | NUR ---
MS RN NOTES 0830 - ACCUCHECK DONE. BS 140 MG/DL. 2 UNITS HUM R PER SS GIVEN. DUE MEDS GIVEN.
[2017-11-27] MEDS ORDERED: POTASSIUM CHLORIDE 20 MEQ TAB.PRT.SR PO SCH (10:30)
[2017-11-27] MEDS: MEROPENEM 500 MG in IV NS 0.9% 50 ML IV SCH (11:13)
--- NOTE | 2017-11-27 11:15 | NUR ---
MS RN NOTES ACCUCHECK DONE. BS 319 MG/DL. 12 UNITS HUM R PER SS GIVEN. STARTED MERREM IV.
[2017-11-27] MEDS ORDERED: MERO500V IV (13:05)
[2017-11-27] MEDS ORDERED: FURO10VI IV (13:09)
--- NOTE | 2017-11-27 17:02 | NUR ---
MS ACEVEDO NOTES PATIENT DISCHCARGED TO [facility] PER MD IN STABLE CONDITION. PROVIDED DC INSTRUCTIONS, MED RECON LIST AND HEALTH TEACHINGS. PATIENT TO FOLLOW UP WITH PCP IN 1 WEEK OR PER FACILITY PROTOCOL. LEFT WRIST IV ACCESS G 22 FLUSHES WELL. SITE CLEAR. IV ACCESS FOR CONTINUATION OF IV ATB. LAND CATH IN PLACE WITH 450 ML OUTPUT. ALL BELONGINGS CHECKED AND RETURNED. ALL PAPERWORKS SIGNED. PATIENT PICKED UP BY 2 AMBULANCE PERSONNEL TO TRANSPORT PATIENT TO FACILITY. PHOTOS OF SKIN ISSUES INSIDE THE CHART. REPORT GIVEN TO SHOBHA ACEVEDO AT FACILITY STAFF EARLIER. Addendum: 11/27/17 at [address] RN CORRECTION: TOTAL URINE OUTPUT IS 1800 ML.
[2018-02-06] MEDS ORDERED: CRAN3875 PO (13:06)
[2018-02-06] MEDS ORDERED: CRAN425C6 PO (13:06)
== END 2017-11-27 16:48 | DRG 133 ==
LOC: ER 13:46 → TELE 16:36 → MED 11-20 08:24 → ICU 11-20 21:28 → TELE1 11-23 17:45 → MEDSG1 11-26 10:05
PROVIDERS: ADMIT Internal Medicine; ATTEND Internal Medicine
PROC: 0W993ZZ Drainage of Right Pleural Cavity, Percutaneous Approach (ICD-10-PCS; principal; 2017-11-20)
PROC: 5A09457 Assistance with Respiratory Ventilation, 24-96 Consecutive Hours, Continuous Positive Airway Pressure (ICD-10-PCS; principal; 2017-11-20)
PROC: 0W993ZZ Drainage of Right Pleural Cavity, Percutaneous Approach (ICD-10-PCS; 2017-11-22)
DX: J96.01 Acute respiratory failure with hypoxia (principal); E43 Unspecified severe protein-calorie malnutrition; I50.33 Acute on chronic diastolic (congestive) heart failure; G93.41 Metabolic encephalopathy; N17.9 Acute kidney failure, unspecified; L89.159 Pressure ulcer of sacral region, unspecified stage; E87.3 Alkalosis; N39.0 Urinary tract infection, site not specified; J90 Pleural effusion, not elsewhere classified; J96.02 Acute respiratory failure with hypercapnia; I11.0 Hypertensive heart disease with heart failure; J44.0 Chronic obstructive pulmonary disease with (acute) lower respiratory infection; Z99.81 Dependence on supplemental oxygen; N18.3 Chronic kidney disease, stage 3 (moderate); Z95.1 Presence of aortocoronary bypass graft; I25.10 Atherosclerotic heart disease of native coronary artery without angina pectoris; I13.0 Hypertensive heart and chronic kidney disease with heart failure and stage 1 through stage 4 chronic kidney disease, or unspecified chronic kidney disease; B96.20 Unspecified Escherichia coli [E. coli] as the cause of diseases classified elsewhere; E03.9 Hypothyroidism, unspecified; Z86.14 Personal history of Methicillin resistant Staphylococcus aureus infection; Z79.84 Long term (current) use of oral hypoglycemic drugs; Z79.899 Other long term (current) drug therapy; M81.0 Age-related osteoporosis without current pathological fracture; Z88.0 Allergy status to penicillin; Z79.4 Long term (current) use of insulin; E78.5 Hyperlipidemia, unspecified; E11.22 Type 2 diabetes mellitus with diabetic chronic kidney disease; E11.65 Type 2 diabetes mellitus with hyperglycemia; I70.0 Atherosclerosis of aorta; E66.9 Obesity, unspecified; Z68.29 Body mass index [BMI] 29.0-29.9, adult; F32.9 Major depressive disorder, single episode, unspecified; E87.1 Hypo-osmolality and hyponatremia; L98.9 Disorder of the skin and subcutaneous tissue, unspecified; D64.9 Anemia, unspecified; F43.21 Adjustment disorder with depressed mood; F09 Unspecified mental disorder due to known physiological condition; J44.1 Chronic obstructive pulmonary disease with (acute) exacerbation; Z68.32 Body mass index [BMI] 32.0-32.9, adult; L30.4 Erythema intertrigo; E83.42 Hypomagnesemia; F03.90 Unspecified dementia, unspecified severity, without behavioral disturbance, psychotic disturbance, mood disturbance, and anxiety; K64.9 Unspecified hemorrhoids; Z96.649 Presence of unspecified artificial hip joint
CPT/HCPCS: 36415; 36600; 70450-TC; 71045-TC; 76942-TC; 80048-TC; 80076-TC; 81000-TC; 82803-TC; 82962-TC; 83735-TC; 84100-TC; 84484-TC; 85025-TC; 85730-TC; 87081-TC; 87086-TC; 87186-TC; 89051-TC; 92611-TC; 94762-TC; 94799-TC; 97530-TC; A4216; A4606; J0696; J1120; J1815; J1940; J1956; J2185; J3475; J7030; J7040; J7050; Z7610

== ENCOUNTER 2017-12-28 21:36 | Inpatient (IN) | payer OTHER, MEDICARE ==
[~2017-12-28] VITALS: Ht 152.4 cm; Wt 72.1 kg
[~2017-12-28 21:36] MED LIST changes: +FURO10VI IV; +MERO500V IV; -PRED50TA PO
--- NOTE | 2017-12-28 21:55 | NUR ---
TO BED 10 BIB PRIVATE AMBULANCE FROM [facility] SENT BY PMD FOR ABNORMAL CXR, CHF AND UTI. PT AAOX4, PLACE PT ON CARDIAC MONITORING, CONTINUOUS POX. PT FAMILY MEMBERS AT BEDSIDE. PENDING ER MD YEE.
--- NOTE | 2017-12-28 22:09 | NUR ---
ER MD AT BEDSIDE TO EVAL PT WITH ORDERS RECEIVED. WILL CARRY OUT ORDERS.
[2017-12-28 23:02] LABS: CALCIUM, SERUM 9.2 mg/dL (8.5-10.1); CARBON DIOXIDE 39 mmol/L (21-32); CHLORIDE 100 mmol/L (98-107); CREATININE 1.4 mg/dL (0.6-1.3); GLUCOSE 246 mg/dL (74-106); POTASSIUM 5.4 mmol/L (3.5-5.1); SODIUM SERUM 140 mmol/L (136-145); UREA NITROGEN, BLOOD 53 mg/dL (7-18)
[2017-12-28 23:03] LABS: EOSINOPHILS % (AUTO) 0.9 % (0.0-6.0); HEMATOCRIT 27 % (33-45); HEMOGLOBIN 8.7 g/dL (11.5-14.8); LYMPHOCYTES # (AUTO) 1.4 /CMM (0.8-4.8); LYMPHOCYTES % (AUTO) 12.6 % (20.0-44.0); MEAN CORPUSCULAR HGB CONC 33 g/dl (31.0-36.0); MEAN CORPUSCULAR VOLUME 88 fL (82-100); MONOCYTES # (AUTO) 0.9 /CMM (0.1-1.30); MONOCYTES % (AUTO) 7.9 % (2.0-12.0); NEUTROPHILS # (AUTO) 8.5 /CMM (1.8-8.9); NEUTROPHILS % (AUTO) 78.6 % (43.0-81.0); PLATELET COUNT (AUTO) 240 /CMM (150-450); RDW COEFFICIENT OF VARIATION 18.7 (11.5-15.0); RED BLOOD CELL COUNT(AUTO) 3.02 MIL/uL (4.0-5.2); WHITE BLOOD COUNT (AUTO) 10.8 K/uL (4.3-11.0)
[2017-12-28 23:09] LABS: INR 1.19 (0.87-1.13)
[2017-12-28 23:10] LABS: TROPONIN I < 0.017 ng/mL (0.00-0.056)
[2017-12-28 23:15] LABS: APPEARANCE,URINE CLOUDY (CLEAR); BILIRUBIN,URINE NEGATIVE (NEGATIVE); BLOOD, URINE 1+ Ery/uL (NEGATIVE); COLOR,URINE YELLOW (YELLOW); KETONES,URINE NEGATIVE (NEGATIVE); LEUKOCYTE ESTERASE ,URINE 3+ (NEGATIVE); NITRITE, URINE NEGATIVE (NEGATIVE); PH,URINE 5.5 (5.0-8.0); PROTEIN,URINE TRACE mg/dl (NEGATIVE); UGLUCOSE NEGATIVE (NEGATIVE); UROBILINOGEN,URINE 0.2 EU/dL (0.2)
[2017-12-28 23:18] LABS: ALANINE AMINOTRANSFERASE 18 U/L (12-78); ALKALINE PHOSPHATASE 90 U/L (46-116); ASPARTATE AMINOTRANSFERASE 16 U/L (15-37); B-TYPE NATRIURETIC PEPTIDE 5390 PG/ML (0-125); BILIRUBIN,DIRECT 0.1 mg/dL (0.0-0.2); BILIRUBIN,TOTAL 0.2 mg/dL (0.2-1.0); TOTAL PROTEIN, SERUM 7.7 g/dL (6.4-8.2)
[2017-12-28 23:25] LABS: BACTERIA,URINE Few /HPF (None Seen); RBC,URINE 0-2 /HPF (0-2); SQUAMOUS EPITHELIAL CELL,UR Few /HPF (None Seen); WBC,URINE TOO NUMEROUS TO COUN /HPF (0-3)
[2017-12-28] MEDS ORDERED: MEROPENEM 500 MG in IV NS 0.9% 50 ML IV ONE (23:30)
[2017-12-28] MEDS ORDERED: SODIUM POLYSTYRENE SULFONATE 15 G/60 ML BOTTLE PO ONE (23:30)
[2017-12-28] MEDS ORDERED: FUROSEMIDE 40 MG/4 ML VIAL IV ONE (23:30)
[2017-12-28] MEDS ORDERED: FUROSEMIDE 40 MG/4 ML VIAL ONE (23:35)
[2017-12-28] MEDS ORDERED: MEROPENEM 1 G VIAL IV ONE (23:36)
[2017-12-28] MEDS ORDERED: SODIUM POLYSTYRENE SULFONATE 15 G/60 ML BOTTLE ONE (23:36)
[2017-12-28] MEDS ORDERED: MEROPENEM 500 MG VIAL IV ONE (23:39)
--- NOTE | 2017-12-28 23:54 | NUR ---
TELE BED 328.2
[2017-12-29] VITALS (28 sets, daily range): BP systolic 103–155; BP diastolic 57–92
[2017-12-29] MEDS ORDERED: ACETAMINOPHEN 325 MG TABLET PO PRN
--- NOTE | 2017-12-29 00:07 | NUR ---
REPORT CALLED TO POTATO CHIP MAKER JV. WILL TRANSPORT PT VIA ACLS PROTOCOL.
--- NOTE | 2017-12-29 00:30 | NUR ---
ADMISSION NOTES: RECEIVED REPORT FROM DANISH ACEVEDO, PT BROUGHT TO THE UNIT VIA DEBRA, PT FROM [facility] AND CAME FOR INCREASING CONFUSION UTI AND CHF. PT BEING ADMITTED FOR UTI AND CHF. PT ON 2L NC RESPIRATION EVEN AND UNLABORED. DENIES ANY PAIN AT THIS TIME. 95% ON OXYGEN. LEFT WRIST G 18 PATENT AND FLUSHING WELL, ON HL. SKIN ASSESSMENT PERFORMED, BED BATH PROVIDED TO THE PT, CHANGED DIAPER, SKIN ISSUES TAKEN AND PHOTO ATTACHED TO CHART. PT HAS LEFT CW PACEMAKER, PLACED ON TELE MONITORING CURRENTLY V PACING HR 82. NOTED BLE EDEMA +3 PITTING. BLE OFFLOADED. PLACED ON SUNDEEP MATTRESS. SAFETY PRECAUTIONS FOR FALL INITIATED, CALL LIGHT IN REACH, INVENTORY OF BELONGING COMPLETED. WILL CONTINUE MONITORING PT.
--- NOTE | 2017-12-29 00:45 | NUR ---
RN NOTES: PT WAS PROVIDED WITH SNACKS, EGG SAND WHICH, JELL O, CRANBERRY JUICE AND WATER ONLY 600ML FOR BRANCH MAKER. PT STATED SHE DOESNT WANT TO EAT ONLY JELLO AND JUICE.
--- NOTE | 2017-12-29 00:50 | NUR ---
RN NOTES: PROTECTION MANAGER EPIC MD MADE AWARE OF PT'S BREATHING SHE IS TACHYPNEIC 21, WITH SHALLOW BREATHING, INFORMED PT RECEIVED LASIX IV IN ER, UPDATED WITH LATEST VS, ON V-PACING HR 80, DENIES ANY PAIN, INFORMED THAT PT PLACED ON 2L WITH 92-94% OF OXYGEN SATURATION. NO FURTHER ORDERS RECEIVED FROM MD. CHIEF NUCLEAR MEDICINE TECHNOLOGIST AWARE
--- NOTE | 2017-12-29 01:00 | NUR ---
RN NOTES: PT CALLED AGAIN TO BE REPOSITIONED, REPOSITIONED PT AT THIS TIME WITH HELP OF HENRRY RAMÍREZ PLACED ON ISOLATION FOR HISTORY OF ESBL IN URINE. URINE WAS COLLECTED AND SENT TO LAB FOR CULTURE. AWAITING RESULT.
--- NOTE | 2017-12-29 01:15 | NUR ---
RN NOTES: PT CALLED AGAIN, REPOSITIONED AT THIS TIME.
--- NOTE | 2017-12-29 01:30 | NUR ---
RN NOTES: PT CALLED AGAIN STATED SHE'S HUNGRY, PROVIDED WITH SNACKS.
[2017-12-29] MEDS ORDERED: HYDROCODONE/APAP 5/325MG 1 EACH TABLET PO PRN (02:00)
[2017-12-29] MEDS ORDERED: ONDANSETRON HCL/PF 4 MG/2 ML VIAL IVP PRN (02:00)
[2017-12-29] MEDS ORDERED: MAGNESIUM HYDROXIDE 30 ML UDC PO PRN ×2 (02:00)
[2017-12-29] MEDS ORDERED: MAG HYDROX/AL HYDROX/SIMETH 30 ML UDC PO PRN (02:00)
--- NOTE | 2017-12-29 02:00 | NUR ---
RN NOTES: PT CALLED AGAIN STATED SHE DOESNT WANT HER FOOD, REQUESTED TO REMOVE HER FOOD IN THE TABLE.
--- NOTE | 2017-12-29 03:00 | NUR ---
RN NOTES: CONTACTED [facility] TIRE SETTER REGARDING MEDICATION TO HELP EASE PT'S ANXIETY, AWAITING FOR CALL BACK
[2017-12-29] MEDS: BLOOD SUGAR DIAGNOSTIC 1 EACH STRIP IN SCH ×5 (06:20→21:49)
--- NOTE | 2017-12-29 06:30 | NUR ---
BS 337: PT BLOOD SUGAR IS 337. CONTACTED PARAKEET [facility]IS[facility] REGARDING PT'S BLOOD SUGAR, BECAUSE THERE IS NO SLIDING SCALE COVERAGE FOR THE PT. AWAITING FOR CALL BACK
--- NOTE | 2017-12-29 06:38 | NUR ---
RN NOTES: PLACED SECOND CALL TO EPIC EXCHANGE, CURTIS XIONG AWARE, AWAITING FOR CALL BACK
--- NOTE | 2017-12-29 06:52 | NUR ---
RN CLOSING NOTES: PT IN BED, REMAINS A/O X2-3 ON 2L VIA NC RESPIRATION EVEN AND UNLABORED. SPO2 94%. IV ACCESS REMAINS PATENT AND FLUSHING WELL, ON HL. BLE OFFLOADED. REMAINS V-PACING HR 80. DENIES ANY PAIN OR DISCOMFORT AT THIS TIME. NO CALLBACK RECEIVE FROM [facility] CLOTH PRINTER MD, TRAP SETTER AWARE, WILL RELAY TO DAY RN TO FOLLOW UP. SAFETY PRECAUTIONS FOR FALL REMAINS ENGAGED, CALL LIGHT IN REACH. WILL ENDORSE TO DAY RN FOR CEDRIC.
--- NOTE | 2017-12-29 07:10 | NUR ---
tele credit collection specialist: notes received pt in bed lethargic, arousable, tachypneic=42, short of breath, and vpacing=80. abg drawn per dr. roberson's order at this time. will continue to monitor.
--- NOTE | 2017-12-29 07:15 | NUR ---
RN NOTES: RECEIVED CALL FROM EPIC EXCHANGE ASKING IF MD CALL BACK, INFORM EXCHANGE THAT MD DIDNT CALL BACK, EXCHANGE SAID BECAUSE ITS ALREADY ALMOST CHANGE OF SHIFT, SO THEY WILL DISPATCH THE CALL TO [facility] POULTRY OFFAL WORKER FOR THE DAY, WHO IS KHADRA KATHLEEN NP, AWAITING FOR CALL BACK
[2017-12-29 07:24] LABS: ABG BASE EXCESS 9.3 mmol/L; ABG OXYGEN SATURATION 87.3 % (92.0-98.5); ABG PCO2 118.8 mmHg (35.0-45.0); ABG PH 7.155 (7.350-7.450); ABG PO2 69.3 mmHg (75.0-100.0); COHb 0.3 % (0.5-1.5); MetHb 1.3 % (0.0-1.5); O2Hb 85.9 % (94.0-97.0); SITE, ABG Right Radial; VENT MODE, BG Nasal Cannula
--- NOTE | 2017-12-29 07:25 | NUR ---
tele director of radio services: notes received verbal order from dr. roberson to transfer pt to icu with bipap. order read back and carried out. cn and rn boom supervisor made aware. per rn boom supervisor place pt on bipap here. nicolle. made aware.
[2017-12-29] MEDS: LEVOTHYROXINE SODIUM 100 MCG TABLET PO SCH (07:30)
[2017-12-29] MEDS: FUROSEMIDE 100 MG/10 ML VIAL IV SCH ×3 (07:41→15:04)
--- NOTE | 2017-12-29 07:42 | NUR ---
RN NOTES: RECEIVED CALL FROM KHADRA KATHLEEN, INFORMED ABOUT THE PT'S CONDITION NEEDING BIPAP, WILL BE TRANSFER TO ICU. PER [facility]PC CODER KHADRA HE WILL FOLLOW UP ON THE PT, AND WILL UPDATE HER MEDICATION IF NEEDS TO BE CHANGE TO IV INSTEAD OF PO. PT WILL BE GOING TO ROOM 259 PER DIGITAL MEDIA DIRECTORISHA HUANG.
--- NOTE | 2017-12-29 07:57 | NUR ---
RN NOTES: CONTACTED FAMILY IOF THE PT, SPOKED TO PT'S SON GLENNA TOMAS [phone], INFORMED THAT PT WILL BE TRANSFERRED TO ICU FOR BIPAP MANAGEMENT, PER SON HE STATED HIS MOTHER ALWAYS NEEDS BIPAP EVEN BEFORE WHENEVER HE GOT ADMITTED TO THE HOSPITAL. HE STATED HE WILL DROP BY THIS AM, INFORMED OF PT'S ROOM NUMBER [id number].
--- NOTE | 2017-12-29 08:00 | NUR ---
ICU/RN PT TRANSFERRED FROM TELE UNIT.WITH SOB, ALOC ,RESPONSIVE ON PAIN STIMULATION.PLACED ON BI-PAP.FIO2-100%.V/S STABLE,AFEBRILE.NO PAIN REPORTED AT THIS TIME .PT IS NPO.F/C PLACED ORDERED.WOUND ON THE LOWER BACK NOTED.MEPILEX APPLIED.[facility]RASS ORDERED.REDNESS ON BERONICA AREA AND UNDER BILATERAL BREASTS NOTED. LEFT CHEST PACEMAKER NOTED.PT IS V-PACING.GENERALIZED EDEMA PRESENT.CONTINUE MONITORING.
--- NOTE | 2017-12-29 08:00 | NUR ---
tele metal bumper: notes pt place on bipap per rn nuclear medicine supervisor here and transferred pt icu with valuables via acls protocol accompanied by 2 r.t. and nurse. report given to navi (luanne) for continuity of care.
--- NOTE | 2017-12-29 08:30 | NUR ---
RT NOTE PLACED PT ON BIPAP WITH NOTED SETTINGS PER MD ORDERS, DUE TO ABG RESULTS, PT WAS TAKEN TO ICU, AMBUBAG AT BEDSIDE VENT PLUGGED INTO RED OUTLET, WILL MONITOR CLOSELY,
[2017-12-29] MEDS: METOPROLOL TARTRATE 25 MG TABLET PO SCH ×2 (09:00→16:29)
[2017-12-29] MEDS: FOLIC ACID 1 MG TABLET PO SCH (09:00)
[2017-12-29] MEDS ORDERED: FUROSEMIDE 40 MG/4 ML VIAL IV SCH ×2 (09:00)
[2017-12-29] MEDS: DOCUSATE SODIUM 100 MG CAPSULE PO SCH (09:00)
[2017-12-29] MEDS: LOSARTAN POTASSIUM 50 MG TABLET PO SCH (09:00)
[2017-12-29] MEDS: CLOPIDOGREL BISULFATE 75 MG TABLET PO SCH (09:00)
[2017-12-29] MEDS: MULTIVITAMINS,THERAGRAN 1 UDTAB TABLET PO SCH (09:00)
[2017-12-29] MEDS: ZINC SULFATE 220 MG CAPSULE PO SCH (09:00)
[2017-12-29] MEDS: ASCORBIC ACID 500 MG TABLET PO SCH (09:00)
[2017-12-29] MEDS: PROSOURCE / PROSTAT (PYXIS) 30 ML UDC PO SCH (09:00)
[2017-12-29] MEDS ORDERED: Medication Not On Formulary EA (Arginine/Ascorbate Sod/Vite AC (Arginaid Powder) 1 EACH) PO SCH (09:00)
[2017-12-29] MEDS: AMLODIPINE BESYLATE 5 MG TABLET PO SCH ×2 (09:00→16:29)
--- NOTE | 2017-12-29 09:37 | NUR ---
INITIAL INJECTION MOLDING MACHINE TENDER NOTE RCVD PT ON BIPAP TOLERATING WELL, ABLE TO OPEN EYES TO PAINFUL STIMULI, V-PACING ON TELE. LAND TO GRAVITY DRAINING CLOUDY, YELLOW URINE. LEFT WRIST IV SITE C/D/I/PATENT. NO S/O INFILTRATION/PHLEBITIS OBSERVED UPON FLUSHING. WILL CONTINUE TO MONITOR PT FOR SAFETY AND COMFORT. CALL LIGHT WITHIN REACH. BED IN LOW AND LOCKED POSITION.
[2017-12-29] MEDS: ENOXAPARIN SODIUM 30 MG/0.3 ML DISP.SYRIN SQ SCH (09:50)
--- NOTE | 2017-12-29 09:50 | NUR ---
WOUND CARE CONSULT: PT PRESENTS WITH SCARRING AND INTACT DEEP TISSUE INJURY TO SACRAL AREA, PRESENT ON ADMISSION. PT ON BIPAP AT THIS TIME. ALL SKIN PROTECTION RECOMMENDATIONS DISCUSSED WITH NURSING STAFF. FIRST STEP MATTRESS ORDERED. WILL SEE PRN. LLANOS IN AGREEMENT WITH PLAN OF CARE. Addendum: 12/29/17 at 0952 by JOAN PICKETT WNDNU Amended: Links added.
--- NOTE | 2017-12-29 10:13 | NUR ---
MEDICATION NOTE PT'S PO MEDS HELD DUE TO RISK OF ASPIRATION SECONDARY TO BIPAP. WILL CONTINUE TO MONITOR.
[2017-12-29 11:03] LABS: EOSINOPHILS % (AUTO) 0.1 % (0.0-6.0); HEMATOCRIT 25 % (33-45); HEMOGLOBIN 8.1 g/dL (11.5-14.8); LYMPHOCYTES # (AUTO) 0.4 /CMM (0.8-4.8); LYMPHOCYTES % (AUTO) 3.7 % (20.0-44.0); MEAN CORPUSCULAR HGB CONC 32 g/dl (31.0-36.0); MEAN CORPUSCULAR VOLUME 89 fL (82-100); MONOCYTES # (AUTO) 0.7 /CMM (0.1-1.30); MONOCYTES % (AUTO) 5.9 % (2.0-12.0); NEUTROPHILS # (AUTO) 10.1 /CMM (1.8-8.9); NEUTROPHILS % (AUTO) 90.3 % (43.0-81.0); PLATELET COUNT (AUTO) 184 /CMM (150-450); RDW COEFFICIENT OF VARIATION 18.8 (11.5-15.0); RED BLOOD CELL COUNT(AUTO) 2.87 MIL/uL (4.0-5.2); WHITE BLOOD COUNT (AUTO) 11.2 K/uL (4.3-11.0)
[2017-12-29 11:15] LABS: CALCIUM, SERUM 8.8 mg/dL (8.5-10.1); CARBON DIOXIDE 36 mmol/L (21-32); CHLORIDE 99 mmol/L (98-107); CREATININE 1.6 mg/dL (0.6-1.3); GLUCOSE 349 mg/dL (74-106); POTASSIUM 4.9 mmol/L (3.5-5.1); SODIUM SERUM 137 mmol/L (136-145); UREA NITROGEN, BLOOD 56 mg/dL (7-18)
[2017-12-29 11:48] LABS: ABG BASE EXCESS 10.6 mmol/L; ABG OXYGEN SATURATION 93.1 % (92.0-98.5); ABG PH 7.346 (7.350-7.450); ABG PO2 75.4 mmHg (75.0-100.0); AaDO2 128.2 mmHg; COHb 0.3 % (0.5-1.5); O2Hb 91.9 % (94.0-97.0); VENT MODE, BG BIPAP 24/5
[2017-12-29] MEDS: MEROPENEM 500 MG in IV NS 0.9% 50 ML IV SCH ×2 (12:12→21:24)
--- NOTE | 2017-12-29 13:09 | NUR ---
BIOMEDICAL INSTRUMENT TECHNICIAN NOTE DR. FANG INFORMED OF LACTIC ACID TRENDING UP 2.7 LATEST. RECOMMENDED 1L NS BOLUS. PER DR. PAEZ HOLD ON IVF AND CONTINUE WITH LASIX. BOTH DR. FANG AND DR. PAEZ DISCUSSED PT'S CONDITION AND ARE IN AGREEMENT WITH HOLDING OF IVF FOR NOW.
[2017-12-29] MEDS ORDERED: INSULIN GLARGINE, 100 UNIT/ML CARTRIDGE SQ ONE (13:30)
[2017-12-29] MEDS ORDERED: IV NS 0.9% 1,000 ML IV PRN (13:30)
[2017-12-29] MEDS ORDERED: DEXTROSE 50%-WATER 50 ML DISP.SYRIN IV PRN (13:30)
[2017-12-29] MEDS: INSULIN REGULAR, HUMAN 100 UNIT/ML 3 ML VIAL SQ PRN ×2 (13:54→17:06)
[2017-12-29] MEDS: IPRATROPIUM NEB FS 0.5 MG/2.5 ML AMPUL.NEB NEB SCH ×3 (14:44→22:42)
[2017-12-29] MEDS: ALBUTEROL HALF STRENGTH 1.25 MG/3 ML VIAL.NEB NEB SCH ×3 (14:46→22:42)
--- NOTE | 2017-12-29 18:36 | NUR ---
SOCIAL WORK ADMINISTRATOR NOTE PT REMAINS ON BIPAP TOLERATING WELL. LESS LETHARGIC THAN THIS MORNING. V-PACING ON TELE. LAND TO GRAVITY DRAINING CLOUDY, YELLOW URINE. IV SITES C/D/I/PATENT. NO S/O INFILTRATION/PHLEBITIS OBSERVED UPON FLUSHING. PT'S CARE WILL BE ENDORSED TO COP WINDER RN FOR CONTINUITY OF CARE. BED IN LOW AND LOCKED POSITION.
--- NOTE | 2017-12-29 18:38 | NUR ---
PT'S DAUGHTER, LEIGHTON, UPDATED ON PT'S STATUS THROUGHOUT THE DAY.
--- NOTE | 2017-12-29 19:26 | NUR ---
PT RCVD ON BIPAP /, RATE 24, 40%. BREATHING TX GIVEN PER MD'S ORDERED, NO ADVERSE REACTION NOTED. NO RESPIRATORY DISTRESS NOTED AT THIS TIME. WILL CONTINUE TO MONITOR
[2017-12-29] MEDS: Z GUARD REMEDY 2 OZ OINT TP SCH (21:49)
--- NOTE | 2017-12-29 21:55 | NUR ---
ICU/RESEARCH HYDRAULIC ENGINEER PT'S BLOOD SUGAR IS CRITICAL LOW AT 43, NOTIFIED CHARGE NURSE ALSO DEXTROSE IV PUSH WAS GIVEN FOR THIS WILL RECHECK BLOOD SUGAR AGAIN IN 15 MINUTES.
[2017-12-29] MEDS ORDERED: POTASSIUM CHLORIDE 20 MEQ TAB.PRT.SR PO SCH (22:00)
--- NOTE | 2017-12-29 22:20 | NUR ---
ICU/PAINT PREPPER PT'S BLOOD SUGAR WAS RECHECKED AFTER THE DEXTROSE GIVEN IVP FOR THE BS OF 43, NEW BLOOD SUGAR IS NOW 197. NO COVERAGE FOR THIS BLOOD SUGAR HOWEVER WILL RECHECK AGAIN AT 0100.
[2017-12-30] VITALS (28 sets, daily range): BP systolic 116–146; BP diastolic 22–98
[2017-12-30] MEDS: BLOOD SUGAR DIAGNOSTIC 1 EACH STRIP IN SCH ×6 (01:14→20:54)
--- NOTE | 2017-12-30 01:15 | NUR ---
ICU/VENEER JOINTER BLOOD SUGAR IS 83, WILL CONTINUE TO MONITOR PT'S BLOOD SUGAR ORDERED BY MD. PT WAS TURNED AND REPOSITIONED OR COMFORT AND CARE
--- NOTE | 2017-12-30 02:35 | NUR ---
ICU/SENIOR WINDOWS SYSTEMS ADMINISTRATOR PT GIVEN AM CARE ALONG WITH ORAL CARE, PT TOLERATED THIS WELL. REMAINS ON CURRENT BIPAP SETTINGS. SATURATION IS 95-98%. PT WAS TURNED AND REPOSITIONED FOR COMFORT AND CARE.
[2017-12-30] MEDS: IPRATROPIUM NEB FS 0.5 MG/2.5 ML AMPUL.NEB NEB SCH ×5 (03:11→19:45)
[2017-12-30] MEDS: ALBUTEROL HALF STRENGTH 1.25 MG/3 ML VIAL.NEB NEB SCH ×5 (03:11→19:45)
--- NOTE | 2017-12-30 04:21 | NUR ---
ICU/SPORTS ATHLETIC TRAINER BLOOD SUGAR IS 90, WILL CONTINUE TO MONITOR PT'S BLOOD SUGAR ORDERED BY MD. PT WAS TURNED AND REPOSITIONED OR COMFORT AND CARE
[2017-12-30 04:29] LABS: BASOPHILS # (AUTO) 0.1 /CMM (0.0-0.2); BASOPHILS % (AUTO) 1.1 % (0.0-2.0); EOSINOPHILS % (AUTO) 0.4 % (0.0-6.0); HEMATOCRIT 23 % (33-45); HEMOGLOBIN 7.4 g/dL (11.5-14.8); LYMPHOCYTES % (AUTO) 10.5 % (20.0-44.0); MEAN CORPUSCULAR HGB CONC 32 g/dl (31.0-36.0); MEAN CORPUSCULAR VOLUME 87 fL (82-100); MONOCYTES # (AUTO) 0.7 /CMM (0.1-1.30); MONOCYTES % (AUTO) 7.9 % (2.0-12.0); NEUTROPHILS # (AUTO) 7.4 /CMM (1.8-8.9); NEUTROPHILS % (AUTO) 80.1 % (43.0-81.0); PLATELET COUNT (AUTO) 179 /CMM (150-450); RED BLOOD CELL COUNT(AUTO) 2.68 MIL/uL (4.0-5.2); WHITE BLOOD COUNT (AUTO) 9.2 K/uL (4.3-11.0)
[2017-12-30 04:50] LABS: ALANINE AMINOTRANSFERASE 16 U/L (12-78); ALBUMIN 2.5 g/dL (3.4-5.0); ALKALINE PHOSPHATASE 61 U/L (46-116); ASPARTATE AMINOTRANSFERASE 27 U/L (15-37); BILIRUBIN,TOTAL 0.5 mg/dL (0.2-1.0); CALCIUM, SERUM 8.8 mg/dL (8.5-10.1); CHLORIDE 103 mmol/L (98-107); CREATININE 1.2 mg/dL (0.6-1.3); GLUCOSE 85 mg/dL (74-106); MAGNESIUM 1.6 mg/dL (1.8-2.4); PHOSPHORUS 2.6 mg/dL (2.5-4.9); POTASSIUM 3.6 mmol/L (3.5-5.1); SODIUM SERUM 146 mmol/L (136-145); TOTAL PROTEIN, SERUM 6.6 g/dL (6.4-8.2); UREA NITROGEN, BLOOD 46 mg/dL (7-18)
[2017-12-30 04:54] LABS: TROPONIN I 0.024 ng/mL (0.00-0.056)
[2017-12-30 05:17] LABS: CARBON DIOXIDE 41 mmol/L (21-32)
--- NOTE | 2017-12-30 07:34 | NUR ---
INITIAL EVP HEAD OF [employer] EXPERIENCE STRATEGY NOTE RCVD PT SLEEPING,EASILY AROUSED TO NAME/LIGHT TOUCH. V-PACING ON TELE. ON BIPAP TOLERATING WELL. PT ALERT AND ABLE TO FOLLOW COMMANDS. LAND TO GRAVITY DRAINING CLOUDY, YELLOW URINE. IV SITES C/D/I/PATENT. NO S/O INFILTRATION/PHLEBITIS OBSERVED UPON FLUSHING. WILL CONTINUE TO MONITOR PT FOR SAFETY AND COMFORT. CALL LIGHT WITHIN REACH. BED IN LOW AND LOCKED POSITION.
[2017-12-30] MEDS: POTASSIUM CL. PREMIX PERIPHER. 50 ML IV SCH ×4 (08:07→11:20)
[2017-12-30] MEDS: FUROSEMIDE 100 MG/10 ML VIAL IV SCH ×3 (08:08→15:14)
[2017-12-30] MEDS: MEROPENEM 500 MG in IV NS 0.9% 50 ML IV SCH ×2 (08:22→20:37)
[2017-12-30] MEDS: Z GUARD REMEDY 2 OZ OINT TP SCH ×2 (08:23→20:58)
[2017-12-30] MEDS: ZINC SULFATE 220 MG CAPSULE PO SCH (08:47)
[2017-12-30] MEDS: MULTIVITAMINS,THERAGRAN 1 UDTAB TABLET PO SCH (08:47)
[2017-12-30] MEDS: LEVOTHYROXINE SODIUM 100 MCG TABLET PO SCH (08:47)
[2017-12-30] MEDS: CLOPIDOGREL BISULFATE 75 MG TABLET PO SCH (08:47)
[2017-12-30] MEDS: DOCUSATE SODIUM 100 MG CAPSULE PO SCH (08:47)
[2017-12-30] MEDS: ASCORBIC ACID 500 MG TABLET PO SCH (08:47)
[2017-12-30] MEDS: PROSOURCE / PROSTAT (PYXIS) 30 ML UDC PO SCH (08:48)
[2017-12-30] MEDS: METOPROLOL TARTRATE 25 MG TABLET PO SCH ×2 (08:48→17:26)
[2017-12-30] MEDS: LOSARTAN POTASSIUM 50 MG TABLET PO SCH (08:48)
[2017-12-30] MEDS: FOLIC ACID 1 MG TABLET PO SCH (08:50)
[2017-12-30 08:55] LABS: CHOLESTEROL 166 mg/dL (<200); FERRITIN 222 ng/mL (8-388); HDL CHOLESTEROL 33 mg/dL (40-60); LDL 115 mg/dL (0-99); TRIGLYCERIDES 121 mg/dL (30-150)
[2017-12-30] MEDS: ENOXAPARIN SODIUM 30 MG/0.3 ML DISP.SYRIN SQ SCH (09:00)
--- NOTE | 2017-12-30 09:00 | NUR ---
PT PLACED OFF OF BIPAP ONTO 2LPM NASAL O2. ZERO DISTRESS NOTED. AT THIS TIME
[2017-12-30 09:06] LABS: IRON, SERUM 31 ug/dl (50-175); TOTAL IRON BINDING CAPACITY 240 ug/dl (250-450)
[2017-12-30] MEDS: Magnesium 1GM/D5W 100ML PREMIX 100 ML IV SCH ×2 (09:09→10:29)
--- NOTE | 2017-12-30 09:37 | NUR ---
DISPLAY COORDINATOR NOTE PT OFF BIPAP, ON 2L VIA NC TOLERATING WELL. PT ANXIOUS AT TIMES WITH VITAL SIGNS STABLE. PT COMFORTED AND RE-ASSURED ABOUT BREATHING. PT ABLE TO CALM DOWN. WILL CONTINUE TO MONITOR. LOVENOX HELD DUE TO HGB TRENDING DOWN.
[2017-12-30] MEDS: INSULIN REGULAR, HUMAN 100 UNIT/ML 3 ML VIAL SQ PRN ×3 (12:21→20:58)
[2017-12-30 13:24] LABS: ABG BASE EXCESS 16.5 mmol/L; ABG PH 7.412 (7.350-7.450); ABG PO2 76.9 mmHg (75.0-100.0); AaDO2 40.1 mmHg; COHb 0.3 % (0.5-1.5); MetHb 0.5 % (0.0-1.5); O2Hb 92.3 % (94.0-97.0); SITE, ABG Right Radial; VENT MODE, BG 2 L NC
--- NOTE | 2017-12-30 16:06 | NUR ---
TIMBER HAND NOTE DR. FANG IN UNIT AWARE OF PT'S HGB TRENDING DOWN AND INFORMED OF LOVENOX BEING HELD. AGREED WITH INTERVENTION. WILL CONTINUE TO MONITOR.
--- NOTE | 2017-12-30 19:07 | NUR ---
MACHINE CARTON MARKER NOTE PT REMAINS STABLE, TOLERATING O2 VIA NC, V-PACING ON TELE. IV SITES C/D/I/PATENT. NO S/O INFILTRATION/PHLEBITIS OBSERVED UPON FLUSHING. PT'S CARE ENDORSED TO TANK INSPECTOR RN FOR CONTINUITY OF CARE. BED IN LOW AND LOCKED POSITION. CALL LIGHT WITHIN REACH.
--- NOTE | 2017-12-30 19:45 | NUR ---
ICU/SHEET METAL WORKER APPRENTICE RECEIVED REPORT FROM DAY NURSE, PT APPEARS TO BE ALERT X 2. PT IS ON 2 LITERS N/C SATURATION IS 97%, NO DISTRESS SEEN AT THIS TIME, PT APPEARS COMFORTABLE. PT FEEDS SELF WITH LITTLE HELP. PT HAS F/C, DRAINING YELLOW URINE. PT HAS A FEW SKIN ISSUES THAT ARE ADDRESSED ON FLOW SHEET. RIGHT UPPER ARM PICC LINE. PT WAS TURNED AND REPOSITIONED FOR COMFORT AND CARE. WILL CONTINUE TO MONITOR THIS PT.
--- NOTE | 2017-12-30 20:37 | NUR ---
ICU/GEOPHYSICAL SUPPORT SPECIALIST REPORT GIVEN TO [facility] RN , PT AT THIS TIME STABLE. NO ACUTE DISTRESS SEEN. PT APPEARS COMFORTABLE.
[2017-12-30] MEDS: Z GUARD REMEDY 2 OZ OINT TP PRN (20:54)
[2017-12-31] VITALS (27 sets, daily range): BP systolic 82–145; BP diastolic 35–79
[2017-12-31] MEDS: IPRATROPIUM NEB FS 0.5 MG/2.5 ML AMPUL.NEB NEB SCH ×7 (00:30→23:45)
[2017-12-31] MEDS: ALBUTEROL HALF STRENGTH 1.25 MG/3 ML VIAL.NEB NEB SCH ×7 (00:30→23:45)
--- NOTE | 2017-12-31 02:07 | NUR ---
PT PRESENTS OPEN CUT ON BRIDGE OF NOSE. MEPILEX APPLIED. RN KRISTEN AWARE Addendum: 12/31/17 at 0208 by ARANZA SCOTT RT Amended: Links added.
[2017-12-31] MEDS: BLOOD SUGAR DIAGNOSTIC 1 EACH STRIP IN SCH ×6 (02:25→21:49)
--- NOTE | 2017-12-31 03:00 | NUR ---
RN NOTE PATIENT IS ALERT/ORIENTED X 2, REQUESTED TO TAKE OFF BI-PAP, EXPLAINED ALL RISKS AND BENEFITS, PATIENT VERBALIZED UNDERSTANDING BUT STILL REFUSED
[2017-12-31 04:38] LABS: BASOPHILS % (AUTO) 0.1 % (0.0-2.0); EOSINOPHILS % (AUTO) 1.1 % (0.0-6.0); HEMATOCRIT 24 % (33-45); HEMOGLOBIN 7.7 g/dL (11.5-14.8); LYMPHOCYTES # (AUTO) 1.5 /CMM (0.8-4.8); LYMPHOCYTES % (AUTO) 14.1 % (20.0-44.0); MEAN CORPUSCULAR HGB CONC 32 g/dl (31.0-36.0); MEAN CORPUSCULAR VOLUME 88 fL (82-100); MONOCYTES # (AUTO) 0.8 /CMM (0.1-1.30); MONOCYTES % (AUTO) 7.9 % (2.0-12.0); NEUTROPHILS % (AUTO) 76.8 % (43.0-81.0); PLATELET COUNT (AUTO) 195 /CMM (150-450); RDW COEFFICIENT OF VARIATION 19.7 (11.5-15.0); RED BLOOD CELL COUNT(AUTO) 2.73 MIL/uL (4.0-5.2); WHITE BLOOD COUNT (AUTO) 10.4 K/uL (4.3-11.0)
[2017-12-31 04:59] LABS: ALANINE AMINOTRANSFERASE 17 U/L (12-78); ALBUMIN 2.5 g/dL (3.4-5.0); ALKALINE PHOSPHATASE 73 U/L (46-116); ASPARTATE AMINOTRANSFERASE 16 U/L (15-37); BILIRUBIN,TOTAL 0.4 mg/dL (0.2-1.0); CALCIUM, SERUM 8.1 mg/dL (8.5-10.1); CHLORIDE 101 mmol/L (98-107); CREATININE 1.1 mg/dL (0.6-1.3); GLUCOSE 158 mg/dL (74-106); MAGNESIUM 1.7 mg/dL (1.8-2.4); SODIUM SERUM 143 mmol/L (136-145); TOTAL PROTEIN, SERUM 6.5 g/dL (6.4-8.2); UREA NITROGEN, BLOOD 41 mg/dL (7-18)
[2017-12-31 05:05] LABS: CARBON DIOXIDE 42 mmol/L (21-32)
--- NOTE | 2017-12-31 05:30 | NUR ---
RN NOTE MG 1.7, K 3.0, CO2 CHEMISTRY 42, NOTIFIED DR MEMBRENO, ORDERS FROM DR BACON AND CARRIED OUT
[2017-12-31] MEDS: INSULIN REGULAR, HUMAN 100 UNIT/ML 3 ML VIAL SQ PRN ×5 (05:34→22:05)
[2017-12-31] MEDS: Magnesium 1GM/D5W 100ML PREMIX 100 ML IV SCH ×4 (05:49→11:14)
[2017-12-31] MEDS: POTASSIUM CL. PREMIX PERIPHER. 50 ML IV SCH ×4 (06:07→09:54)
--- NOTE | 2017-12-31 07:27 | NUR ---
INITIAL SQL SERVER DEVELOPER NOTE RCVD PT SLEEPING, EASILY AROUSED BY TOUCH/NAME. PT ALERT AND ORIENTED, ABLE TO FOLLOW COMMANDS. V-PACING ON TELE. TOLERATING O2 VIA NC. LAND TO GRAVITY DRAINING CLOUDY, YELLOW URINE. IV SITES C/D/I/PATENT. NO S/O INFILTRATION/PHLEBITIS OBSERVED UPON FLUSHING. WILL CONTINUE TO MONITOR PT FOR SAFETY AND COMFORT. CALL LIGHT WITHIN REACH. BED IN LOW AND LOCKED POSITION.
[2017-12-31] MEDS ORDERED: POTASSIUM CHLORIDE 20 MEQ TAB.PRT.SR PO SCH (08:00)
[2017-12-31] MEDS ORDERED: acetaZOLAMIDE SODIUM 500 MG/VIAL VIAL IV ONE ×2 (08:00→10:30)
[2017-12-31] MEDS: ASCORBIC ACID 500 MG TABLET PO SCH (08:14)
[2017-12-31] MEDS: DOCUSATE SODIUM 100 MG CAPSULE PO SCH (08:14)
[2017-12-31] MEDS: FOLIC ACID 1 MG TABLET PO SCH (08:14)
[2017-12-31] MEDS: CLOPIDOGREL BISULFATE 75 MG TABLET PO SCH (08:14)
[2017-12-31] MEDS: LEVOTHYROXINE SODIUM 100 MCG TABLET PO SCH (08:14)
[2017-12-31] MEDS: ENOXAPARIN SODIUM 30 MG/0.3 ML DISP.SYRIN SQ SCH (08:15)
[2017-12-31] MEDS: POTASSIUM CHLORIDE 20 MEQ POWDER PACKET PO SCH ×3 (08:15→11:14)
[2017-12-31] MEDS: MEROPENEM 500 MG in IV NS 0.9% 50 ML IV SCH ×2 (08:16→21:49)
[2017-12-31] MEDS: METOPROLOL TARTRATE 25 MG TABLET PO SCH ×2 (08:16→17:01)
[2017-12-31] MEDS: LOSARTAN POTASSIUM 50 MG TABLET PO SCH (08:16)
[2017-12-31] MEDS: PROSOURCE / PROSTAT (PYXIS) 30 ML UDC PO SCH (08:59)
[2017-12-31] MEDS: ZINC SULFATE 220 MG CAPSULE PO SCH (09:03)
[2017-12-31] MEDS: MULTIVITAMINS,THERAGRAN 1 UDTAB TABLET PO SCH (09:03)
[2017-12-31] MEDS: MUPIROCIN OINT 2% 22 GM TUBE SCH ×2 (09:18→21:50)
[2017-12-31] MEDS: Z GUARD REMEDY 2 OZ OINT TP SCH ×2 (09:27→21:49)
--- NOTE | 2017-12-31 09:28 | NUR ---
CARBURETOR MECHANIC NOTE PT EXHIBITS ANXIOUS BEHAVIOR WANTS RN TO BE AT BEDSIDE ALL DAY. PT C/O SOB, OBSERVED WITH SHALLOW BREATHING AND TACHYPNEIC. PT COACHED TO TAKE DEEPER, SLOWER BREATHS, TOUCH USED. PT CALMED DOWN. WILL CONTINUE TO MONITOR.
[2017-12-31] MEDS: SOD FERRIC GLUC 125 MG in IV NS 0.9% 100 ML IV SCH (14:06)
--- NOTE | 2017-12-31 17:38 | NUR ---
TRANSFER RN NOTE PT TRANSFERRED TO [facility] PER PROTOCOL, IN STABLE CONDITION, NO S/O DISTRESS OBSERVED OR MANIFESTED BY PT. V-PACING ON TELE. PT ALERT AND AWAKE. LAND TO GRAVITY. ALL BELONGINGS AND MEDICATIONS TRANSPORTED WITH PT. REPORT GIVEN AT BEDSIDE TO CURTIS VILLALOBOS.
--- NOTE | 2017-12-31 17:40 | NUR ---
RN NOTES: Pt admitted in room 104, DELVIN status, transferred via bed accompanied by 2 RNs. Report given by Sepideh at bedside. Pt is A/O x 1-2, not in any distress. On NC/3lpm, sating at 98%. Placed on telemonitor, Vpacing w/ HR 80. Has AMY midline, SL, C/D/I, no s/sx of infection/infiltration noted. Has FC draining to BSB. Pt oriented to new room. Belongings at bedside. Pt wearing her dentures. Pt was able to eat her dinner w/ Sultana. Kept well rested. Bed kept low & in locked pos. Call light placed w/in reach. Will endorse to PM RN for CEDRIC.
[2017-12-31] MEDS ORDERED: INSULIN GLARGINE, 100 UNIT/ML CARTRIDGE SQ ONE (18:30)
--- NOTE | 2017-12-31 19:30 | NUR ---
DELVIN RN INITIAL NOTE PT RECEIVED AWAKE AND ALERT IN BED. ON 3L OF O2 VIA NC AND SATURATING WELL. BREATHING REGULAR AND UNLABORED. HOB ELEVATED. NO DISCOMFORT NOTED. TELE- V-PACING 100%. IV AMY MIDLINE CLEAN AND DRY. LAND CATHETER IN PLACE AND DRAINING BY GRAVITY. ISOLATION PRECAUTIONS OBSERVED. CALL LIGHT WITHIN REACH. WILL CONTINUE TO MONITOR.
[2018-01-01] VITALS (17 sets, daily range): BP systolic 93–130; BP diastolic 45–68
--- NOTE | 2018-01-01 | NUR ---
DELVIN RN NOTE PT REFUSED SKIN ASSESSMENT PICTURES. EXPLAINED REASONS FOR PICTURES IS FOR DOCUMENTATION. PT REFUSED.
[2018-01-01] MEDS: BLOOD SUGAR DIAGNOSTIC 1 EACH STRIP IN SCH ×6 (00:45→21:29)
[2018-01-01] MEDS: IPRATROPIUM NEB FS 0.5 MG/2.5 ML AMPUL.NEB NEB SCH ×5 (03:56→19:57)
[2018-01-01] MEDS: ALBUTEROL HALF STRENGTH 1.25 MG/3 ML VIAL.NEB NEB SCH ×5 (03:56→19:57)
--- NOTE | 2018-01-01 06:40 | NUR ---
DELVIN RN CLOSING NOTE PT REMAINED STABLE DURING SHIFT. NO ACUTE DISTRESS NOTED. ALL NEEDS ATTENDED TO PROMPTLY. REPOSITIONED Q2H. O2 SATURATION MAINTAINED ABOVE 92%. CALL LIGHT WITHIN REACH. WILL ENDORSE TO NEXT SHIFT FOR CONTINUITY OF CARE.
[2018-01-01 07:00] LABS: BASOPHILS % (AUTO) 0.1 % (0.0-2.0); EOSINOPHILS % (AUTO) 1.5 % (0.0-6.0); HEMATOCRIT 27 % (33-45); HEMOGLOBIN 8.4 g/dL (11.5-14.8); LYMPHOCYTES # (AUTO) 1.2 /CMM (0.8-4.8); LYMPHOCYTES % (AUTO) 11.7 % (20.0-44.0); MEAN CORPUSCULAR HGB CONC 32 g/dl (31.0-36.0); MEAN CORPUSCULAR VOLUME 90 fL (82-100); MONOCYTES # (AUTO) 0.9 /CMM (0.1-1.30); NEUTROPHILS # (AUTO) 8.1 /CMM (1.8-8.9); NEUTROPHILS % (AUTO) 77.7 % (43.0-81.0); PLATELET COUNT (AUTO) 209 /CMM (150-450); RDW COEFFICIENT OF VARIATION 19.2 (11.5-15.0); RED BLOOD CELL COUNT(AUTO) 2.98 MIL/uL (4.0-5.2); WHITE BLOOD COUNT (AUTO) 10.4 K/uL (4.3-11.0)
[2018-01-01 07:20] LABS: ALANINE AMINOTRANSFERASE 18 U/L (12-78); ALBUMIN 2.7 g/dL (3.4-5.0); ALKALINE PHOSPHATASE 88 U/L (46-116); ASPARTATE AMINOTRANSFERASE 18 U/L (15-37); BILIRUBIN,TOTAL 0.3 mg/dL (0.2-1.0); CALCIUM, SERUM 8.5 mg/dL (8.5-10.1); CHLORIDE 100 mmol/L (98-107); CREATININE 1.3 mg/dL (0.6-1.3); GLUCOSE 92 mg/dL (74-106); MAGNESIUM 3.5 mg/dL (1.8-2.4); PHOSPHORUS 4.6 mg/dL (2.5-4.9); SODIUM SERUM 143 mmol/L (136-145); TOTAL PROTEIN, SERUM 7.2 g/dL (6.4-8.2); UREA NITROGEN, BLOOD 47 mg/dL (7-18)
[2018-01-01 07:30] LABS: CARBON DIOXIDE 42 mmol/L (21-32)
--- NOTE | 2018-01-01 07:34 | NUR ---
DELVIN RN NOTE REPORT RECEIVED FROM KAYLA ACEVEDO FOR CEDRIC. PATIENT MEDICALLY STABLE NC 3L . TELE V PACING ALL SAFETY MEASURES IN PLACE NO C/O OF SOB AND NO PAIN REPORTED. WILL CONTINUE TO MONITOR CLOSELY. CALL FROM LAB CARBON DIOXIDE 42 SAME RESULT YESTERDAY AWARE. PT A/O X2-3.
[2018-01-01] MEDS: PROSOURCE / PROSTAT (PYXIS) 30 ML UDC PO SCH (08:01)
[2018-01-01] MEDS: LEVOTHYROXINE SODIUM 100 MCG TABLET PO SCH (08:01)
[2018-01-01] MEDS: ASCORBIC ACID 500 MG TABLET PO SCH (08:01)
[2018-01-01] MEDS: METOPROLOL TARTRATE 25 MG TABLET PO SCH ×2 (08:01→16:16)
[2018-01-01] MEDS: DOCUSATE SODIUM 100 MG CAPSULE PO SCH (08:01)
[2018-01-01] MEDS: MULTIVITAMINS,THERAGRAN 1 UDTAB TABLET PO SCH (08:02)
[2018-01-01] MEDS: LOSARTAN POTASSIUM 50 MG TABLET PO SCH (08:02)
[2018-01-01] MEDS: CLOPIDOGREL BISULFATE 75 MG TABLET PO SCH (08:02)
[2018-01-01] MEDS: FOLIC ACID 1 MG TABLET PO SCH (08:02)
[2018-01-01] MEDS: ZINC SULFATE 220 MG CAPSULE PO SCH (08:02)
[2018-01-01] MEDS: MEROPENEM 500 MG in IV NS 0.9% 50 ML IV SCH ×2 (08:03→21:21)
[2018-01-01] MEDS: Z GUARD REMEDY 2 OZ OINT TP SCH ×2 (08:03→21:36)
[2018-01-01] MEDS: ENOXAPARIN SODIUM 30 MG/0.3 ML DISP.SYRIN SQ SCH (08:05)
[2018-01-01] MEDS: MUPIROCIN OINT 2% 22 GM TUBE SCH ×2 (08:06→21:30)
[2018-01-01] MEDS ORDERED: acetaZOLAMIDE SODIUM 500 MG/VIAL VIAL IV ONE (11:00)
[2018-01-01] MEDS: INSULIN REGULAR, HUMAN 100 UNIT/ML 3 ML VIAL SQ PRN (12:14)
--- NOTE | 2018-01-01 12:46 | NUR ---
DELVIN RN NOTE PER BRANDY IN RADIOLOGY PATIENT WILL NOT HAVE THORACENTESIS TODAY NO RADIOLOGIST. PATIENT NEEDS TO BE REMOVED OFF OF BLOOD THINNER FOR 48-72 HOURS BEFORE THORACENTESIS. WILL REPORT TO DR. FANG.
[2018-01-01] MEDS: NITROFURANTOIN MACROCRYSTAL 50 MG CAPSULE PO SCH ×2 (13:03→17:19)
--- NOTE | 2018-01-01 13:19 | NUR ---
DELVIN RN NOTE SPOKE TO DR. FANG REGARDING DC OF LOVENOX . ORDERED TO CALL DR. MORA. SAID NOT TO DC LOVENOX AND LET DR. PAEZ KNOW. I ALS REPORTED PATIENT HAS BEEN LETHARGIC THROUGHOUT MORNING. ORDERED STAT ABG. CALLED RT.
[2018-01-01 13:40] LABS: ABG BASE EXCESS 14.2 mmol/L; ABG OXYGEN SATURATION 92.5 % (92.0-98.5); ABG PCO2 98.3 mmHg (35.0-45.0); ABG PO2 77.4 mmHg (75.0-100.0); AaDO2 6.2 mmHg; COHb 0.3 % (0.5-1.5); MetHb 0.9 % (0.0-1.5); O2Hb 91.4 % (94.0-97.0); SITE, ABG Right Radial; VENT MODE, BG 2L N/C
--- NOTE | 2018-01-01 14:27 | NUR ---
DELVIN RN NOTE SPOKE TO DR. PAEZ ORDERED PATIENT TO BE SENT TO ICU AFTER ABG RESULTS. CALLED AND SPOKE TO QUE ACEVEDO ICU. DR. PAEZ AWARE OF THE THORACENTESIS NOT BEING PERFORMED TODAY AND RADIOLOGY WANTING DC OF LOVENOX. DR PAEZ STATED " WILL TAKE CARE OF IT". REPORTED TRANSFER TO DR. FANG. PATIENT TRANSFERRED TO ICU VIA GURNEY. WILL BEGIN ON BIPAP.
[2018-01-01] MEDS: SOD FERRIC GLUC 125 MG in IV NS 0.9% 100 ML IV SCH (14:34)
[2018-01-01] MEDS: IV NS 0.9% 250 ML IV PRN (14:51)
--- NOTE | 2018-01-01 15:35 | NUR ---
pt placed on bipap per md order. alarms set and audible. nepilax applied to bridge of nose. berenice. settings well at this time
--- NOTE | 2018-01-01 15:38 | NUR ---
DIE DESIGNER NOTE 1445: Patient transferred from DELVIN to ICU for Bipap. Patient is awake, A/Ox2. Placed on Bipap by RT, 24/01 rate 15 40% FIO2. With AMY midline intact. With Corral intact, noted with clear audi colored urine drained to BSD. VSS at this time. Will continue to monitor. Contact isolation precaution for MRSA nares maintained and observed. V pacing 100%, rate of 80 on the monitor. 1530: No any significant changes noted. On Bipap, tolerated. Patient seems comfortably resting at this time. VSS.
--- NOTE | 2018-01-01 17:19 | NUR ---
MARKETING PLANNING MANAGER NOTE Patient is on Bipap. Patient is lethargic, will hold dinner and injsulin dose. BS 180. Held pm med for now for risk of aspiration. Will continue to monitor. VSS.
[2018-01-01 18:08] LABS: ABG BASE EXCESS 16.1 mmol/L; ABG OXYGEN SATURATION 96.3 % (92.0-98.5); ABG PCO2 96.6 mmHg (35.0-45.0); ABG PH 7.291 (7.350-7.450); AaDO2 72.1 mmHg; COHb 0.1 % (0.5-1.5); MetHb 0.8 % (0.0-1.5); O2Hb 95.4 % (94.0-97.0); PEEP,BG 5 cm H2O; SITE, ABG Right Radial
--- NOTE | 2018-01-01 18:24 | NUR ---
CALLED PATIENT EMAD SON (DPOA) AND UPDATED ON TRANSFER TO ICU FOR BIPAP.
--- NOTE | 2018-01-01 18:34 | NUR ---
COMMISSIONS ANALYST NOTE ABG result relayed to Dr. Jameel MD ordered to do another ABG @ 1999. Patient is lethargic. VSS.
--- NOTE | 2018-01-01 19:30 | NUR ---
MEASUREMENT DEPARTMENT CHIEF CLERK INITIAL NOTES RECEIVED PATIENT LETHARGIC, RESPONSIVE TO PAIN. NO RESPIRATORY DISTRESS NOTED, ON BIPAP 24/5, RATE 24, FIO2 40% SPO2 100%. ON TELE MONITOR VPACING. SKIN WARM AND DRY TO TOUCH. WITH F/C PATENT AND INTACT, DRAINING BY GRAVITY. WITH AMY MIDLINE PATENT AND INTACT TKO. HOB ELEVATED. SIDE RAILS UP AND LOCKED. BED KEPT AT LOWEST POSITION, ISOLATION PRECAUTIONS OBSERVED. WILL CONTINUE TO MONITOR.
[2018-01-01 20:10] LABS: ABG BASE EXCESS 11.4 mmol/L; ABG OXYGEN SATURATION 96.3 % (92.0-98.5); ABG PCO2 68.9 mmHg (35.0-45.0); ABG PH 7.365 (7.350-7.450); ABG PO2 97.6 mmHg (75.0-100.0); AaDO2 108.4 mmHg; COHb 0.1 % (0.5-1.5); MetHb 1.1 % (0.0-1.5); O2Hb 95.1 % (94.0-97.0); PEEP,BG 5 cm H2O; SITE, ABG Right Radial; VENT MODE, BG 24/5 rate:24
--- NOTE | 2018-01-01 20:14 | NUR ---
HOOD MAKER NOTE RELAYED ABG RESULT TO DR. PAEZ WITH ORDERS FOR ABG IN MORNING. NOTED WILL CONTINUE TO MONITOR.
--- NOTE | 2018-01-01 20:40 | NUR ---
COMMUNITY OUTREACH COORDINATOR NOTE RELAYED TO DR. PAEZ DAUGHTER LEIGHTON WANTS TO TALK TO HIM, DR. PAEZ SPOKE WITH DAUGHTER ON THE PHONE.
[2018-01-01] MEDS: Z GUARD REMEDY 2 OZ OINT TP PRN (21:31)
[2018-01-02] VITALS (33 sets, daily range): BP systolic 94–152; BP diastolic 38–83
[2018-01-02] MEDS: ALBUTEROL HALF STRENGTH 1.25 MG/3 ML VIAL.NEB NEB SCH ×7 (00:14→23:39)
[2018-01-02] MEDS: IPRATROPIUM NEB FS 0.5 MG/2.5 ML AMPUL.NEB NEB SCH ×7 (00:14→23:39)
[2018-01-02] MEDS: NITROFURANTOIN MACROCRYSTAL 50 MG CAPSULE PO SCH ×5 (01:04→16:54)
[2018-01-02] MEDS: BLOOD SUGAR DIAGNOSTIC 1 EACH STRIP IN SCH ×4 (01:07→11:36)
[2018-01-02 04:29] LABS: BASOPHILS % (AUTO) 0.4 % (0.0-2.0); EOSINOPHILS % (AUTO) 2.1 % (0.0-6.0); HEMATOCRIT 23 % (33-45); HEMOGLOBIN 7.2 g/dL (11.5-14.8); LYMPHOCYTES # (AUTO) 1.1 /CMM (0.8-4.8); LYMPHOCYTES % (AUTO) 11.8 % (20.0-44.0); MEAN CORPUSCULAR HGB CONC 32 g/dl (31.0-36.0); MEAN CORPUSCULAR VOLUME 89 fL (82-100); MONOCYTES # (AUTO) 0.7 /CMM (0.1-1.30); MONOCYTES % (AUTO) 7.6 % (2.0-12.0); NEUTROPHILS % (AUTO) 78.1 % (43.0-81.0); PLATELET COUNT (AUTO) 183 /CMM (150-450); RED BLOOD CELL COUNT(AUTO) 2.53 MIL/uL (4.0-5.2); WHITE BLOOD COUNT (AUTO) 8.9 K/uL (4.3-11.0)
[2018-01-02 04:54] LABS: ALANINE AMINOTRANSFERASE 12 U/L (12-78); ALBUMIN 2.1 g/dL (3.4-5.0); ALKALINE PHOSPHATASE 73 U/L (46-116); ASPARTATE AMINOTRANSFERASE 14 U/L (15-37); BILIRUBIN,TOTAL 0.3 mg/dL (0.2-1.0); CALCIUM, SERUM 7.9 mg/dL (8.5-10.1); CARBON DIOXIDE 38 mmol/L (21-32); CHLORIDE 105 mmol/L (98-107); CREATININE 1.1 mg/dL (0.6-1.3); GLUCOSE 94 mg/dL (74-106); MAGNESIUM 2.1 mg/dL (1.8-2.4); PHOSPHORUS 3.3 mg/dL (2.5-4.9); POTASSIUM 3.1 mmol/L (3.5-5.1); SODIUM SERUM 146 mmol/L (136-145); TOTAL PROTEIN, SERUM 5.7 g/dL (6.4-8.2); UREA NITROGEN, BLOOD 43 mg/dL (7-18)
--- NOTE | 2018-01-02 07:30 | NUR ---
WELDER OPERATOR RECEIVED PATIENT AWAKE ON BIPAP ALERT AWAKE ORIENTED X 2 WITH EPISODES OF CONFUSION SINUS RHYTHM WITH V PACING ON THE MONITOR ABLE TO CONSUME HER SHARE ON MEAL WITH GOOD APPETITE WITH LAND CATHETER DRAINING TO YELLOWISH URINE ADEQUATE IN AMOUNT
[2018-01-02] MEDS: LEVOTHYROXINE SODIUM 100 MCG TABLET PO SCH (07:48)
[2018-01-02] MEDS: POTASSIUM CL. PREMIX PERIPHER. 50 ML IV SCH ×4 (07:51→11:57)
--- NOTE | 2018-01-02 07:56 | NUR ---
MIXING OPERATOR CLOSING NOTE NO SIGNIFICANT CHANGES OVERNIGHT. PATIENT MORE AWAKE AND AWARE, FOLLOWS COMMANDS. TOLERATING BIPAP SETTINGS. NO DISTRESS NOTED. KEPT CLEAN AND AND DRY. ALL DUE MEDS GIVEN. TURNED AND REPOSITIONED Q2 AND PRN. SIDE RAILS UP AND LOCKED. BED KEPT AT LOWEST POSITION. CALL LIGHT KEPT WITHIN EASY REACH. ISOLATION PRECAUTIONS OBSERVED. HOB ELEVATED. CONTINUITY OF CARE ENDORSED TO AM NURSE.
--- NOTE | 2018-01-02 08:46 | NUR ---
MANAGER HIV PATIENT STARTED EATING IN ACCURATE RESULT WILL SHOW WILL CONFIRM WITH DOCTOR IF ACHS ACCUCHECK WILL BE DONE SINCE BEFORE STARTING FEEDING, HER BS SUGAR WAS 300 MG/DL
[2018-01-02] MEDS: CLOPIDOGREL BISULFATE 75 MG TABLET PO SCH (09:00)
[2018-01-02] MEDS: LOSARTAN POTASSIUM 50 MG TABLET PO SCH (09:03)
[2018-01-02] MEDS: MULTIVITAMINS,THERAGRAN 1 UDTAB TABLET PO SCH (09:03)
[2018-01-02] MEDS: ZINC SULFATE 220 MG CAPSULE PO SCH (09:03)
[2018-01-02] MEDS: ASCORBIC ACID 500 MG TABLET PO SCH (09:03)
[2018-01-02] MEDS: DOCUSATE SODIUM 100 MG CAPSULE PO SCH (09:03)
[2018-01-02] MEDS: METOPROLOL TARTRATE 25 MG TABLET PO SCH ×2 (09:03→16:55)
[2018-01-02] MEDS: FOLIC ACID 1 MG TABLET PO SCH (09:03)
[2018-01-02] MEDS: PROSOURCE / PROSTAT (PYXIS) 30 ML UDC PO SCH (09:04)
[2018-01-02] MEDS: Z GUARD REMEDY 2 OZ OINT TP SCH ×2 (09:04→21:26)
[2018-01-02] MEDS: MUPIROCIN OINT 2% 22 GM TUBE SCH ×2 (09:04→21:26)
[2018-01-02 09:23] LABS: ABG BASE EXCESS 13.3 mmol/L; ABG OXYGEN SATURATION 95.6 % (92.0-98.5); ABG PCO2 65.4 mmHg (35.0-45.0); ABG PH 7.405 (7.350-7.450); ABG PO2 92.1 mmHg (75.0-100.0); AaDO2 59.5 mmHg; COHb 0.3 % (0.5-1.5); MetHb 0.9 % (0.0-1.5); O2Hb 94.5 % (94.0-97.0); SITE, ABG Right Radial; VENT MODE, BG NASAL CANNULA @ 32%
--- NOTE | 2018-01-02 09:45 | NUR ---
RT NOTE ABG DRAWN @ 9885. REPORTED ABG RESULTS TO CURTIS CORNELIUS. PLACED PATIENT ON BIPAP WITH CURRENT SETTINGS. WILL FOLLOW UP WITH DR. PAEZ FOR UPCOMING ORDERS.
[2018-01-02] MEDS: MEROPENEM 500 MG in IV NS 0.9% 50 ML IV SCH ×2 (10:01→21:24)
[2018-01-02] MEDS ORDERED: LIDOCAINE HCL/PF 1% 30 ML SDV ONE (10:52)
[2018-01-02] MEDS: INSULIN REGULAR, HUMAN 100 UNIT/ML 3 ML VIAL SQ PRN ×2 (12:06→17:17)
[2018-01-02] MEDS: SOD FERRIC GLUC 125 MG in IV NS 0.9% 100 ML IV SCH (14:09)
[2018-01-02] MEDS ORDERED: DEXTROSE 50%-WATER 50 ML DISP.SYRIN IV PRN (14:30)
--- NOTE | 2018-01-02 16:46 | NUR ---
PATIENT RECEIVED ON BIPAP WITH SETTINGS OF 24/5, BUR 24, 40%. REMOVED PATIENT OFF BIPAP WITH ABG ORDER @ 32%. PLACED PATIENT BACK ON BIPAP WITH NEW SETTINGS OF 15/5, BUR 24, 40%. MEPILEX PLACED ON PATIENT'S NOSE. MASK FITS TIGHTS AND SECURED. ALARMS ON AND AUDIBLE. PATIENT IS AWAKE/ALERT T/O SHIFT. NO SOB NOTED. MONITORED CLOSELY. Addendum: 01/02/18 at 1649 by JUSTEN BRODY RT Amended: Links added.
[2018-01-02] MEDS: NYSTATIN TOP POWDER 15 GM BOTTLE TP SCH (16:54)
[2018-01-02] MEDS: BLOOD SUGAR DIAGNOSTIC 1 EACH STRIP VI SCH ×2 (16:55→21:24)
[2018-01-02] MEDS: LACTOBACILLUS RHAMNOSUS GG 1 EACH CAP.SPRINK PO SCH (16:55)
--- NOTE | 2018-01-02 20:55 | NUR ---
PT ON BIPAP 15/, 24, 40%. PT IS AWAKE ALERT NO RESP DISTRESS. PLACED PT ON UTN MASK. NOTICED REDNESS ON THE BRIDGE OF THE NOSE. RN AWARE. BIPAP ALARMS SET AND AUDIBLE. AMBU BAG AT BEDSIDE. BIPAP PLUGGED INTO RED OUTLET. Addendum: 01/02/18 at 2057 by OPAL NEGRON RT Amended: Links added.
[2018-01-02] MEDS: IV NS 0.9% 250 ML IV PRN (21:24)
[2018-01-02] MEDS: *INSULIN REGULAR(HUMULIN R)HUM 100 UNIT/ML VIAL SQ PRN (21:32)
[2018-01-03] VITALS (28 sets, daily range): BP systolic 96–151; BP diastolic 50–79
[2018-01-03] MEDS: NITROFURANTOIN MACROCRYSTAL 50 MG CAPSULE PO SCH ×2 (00:38→06:21)
[2018-01-03] MEDS: IPRATROPIUM NEB FS 0.5 MG/2.5 ML AMPUL.NEB NEB SCH ×6 (03:27→23:12)
[2018-01-03] MEDS: ALBUTEROL HALF STRENGTH 1.25 MG/3 ML VIAL.NEB NEB SCH ×6 (03:27→23:12)
--- NOTE | 2018-01-03 07:10 | NUR ---
RADIOTELEGRAPHER- INITIAL NOTE RECEIVED PT RESTING IN BED. CURRENTLY ON BIPAP, RESPIRATIONS EVEN AND UNLABORED, NO SOB OR DISTRESS PRESENT. BEDSIDE MONITOR REVEALS V-PACING. LAND CATHETER PRESENT AND DRAINING TO GRAVITY. AMY MIDLINE RUNNING NS @ TKO. WILL CONTINUE TO MONITOR.
[2018-01-03] MEDS: BLOOD SUGAR DIAGNOSTIC 1 EACH STRIP VI SCH ×4 (08:01→21:24)
[2018-01-03] MEDS: LOSARTAN POTASSIUM 50 MG TABLET PO SCH (08:01)
[2018-01-03] MEDS: METOPROLOL TARTRATE 25 MG TABLET PO SCH ×2 (08:01→18:00)
[2018-01-03] MEDS: INSULIN REGULAR, HUMAN 100 UNIT/ML 3 ML VIAL SQ PRN ×3 (08:02→18:01)
[2018-01-03] MEDS: MEROPENEM 500 MG in IV NS 0.9% 50 ML IV SCH (08:04)
[2018-01-03] MEDS: Z GUARD REMEDY 2 OZ OINT TP SCH ×2 (08:05→21:24)
[2018-01-03] MEDS: NYSTATIN TOP POWDER 15 GM BOTTLE TP SCH ×2 (08:05→17:59)
--- NOTE | 2018-01-03 08:05 | NUR ---
RT PATIENT REMOVED FROM NOC BIPAP AND PLACED ON 2L N/C MELISSA WELL. CURTIS SEN AT BEDSIDE. NO SOB NOTED.
[2018-01-03 08:33] LABS: CALCIUM, SERUM 8.3 mg/dL (8.5-10.1); CARBON DIOXIDE 36 mmol/L (21-32); CHLORIDE 102 mmol/L (98-107); CREATININE 1.1 mg/dL (0.6-1.3); GLUCOSE 86 mg/dL (74-106); POTASSIUM 3.7 mmol/L (3.5-5.1); SODIUM SERUM 143 mmol/L (136-145); UREA NITROGEN, BLOOD 44 mg/dL (7-18)
[2018-01-03] MEDS: FOLIC ACID 1 MG TABLET PO SCH (08:58)
[2018-01-03] MEDS: LACTOBACILLUS RHAMNOSUS GG 1 EACH CAP.SPRINK PO SCH ×2 (08:58→17:59)
[2018-01-03] MEDS: MULTIVITAMINS,THERAGRAN 1 UDTAB TABLET PO SCH (08:58)
[2018-01-03] MEDS: ASCORBIC ACID 500 MG TABLET PO SCH (08:58)
[2018-01-03] MEDS: CLOPIDOGREL BISULFATE 75 MG TABLET PO SCH (08:58)
[2018-01-03] MEDS: LEVOTHYROXINE SODIUM 100 MCG TABLET PO SCH (08:58)
[2018-01-03] MEDS: DOCUSATE SODIUM 100 MG CAPSULE PO SCH (08:58)
[2018-01-03] MEDS: PROSOURCE / PROSTAT (PYXIS) 30 ML UDC PO SCH (08:58)
[2018-01-03 09:20] LABS: BASOPHILS % (AUTO) 0.3 % (0.0-2.0); EOSINOPHILS % (AUTO) 2.3 % (0.0-6.0); HEMATOCRIT 27 % (33-45); HEMOGLOBIN 9.2 g/dL (11.5-14.8); LYMPHOCYTES # (AUTO) 1.9 /CMM (0.8-4.8); LYMPHOCYTES % (AUTO) 15.1 % (20.0-44.0); MEAN CORPUSCULAR HGB CONC 34 g/dl (31.0-36.0); MEAN CORPUSCULAR VOLUME 87 fL (82-100); MONOCYTES # (AUTO) 1.2 /CMM (0.1-1.30); MONOCYTES % (AUTO) 9.7 % (2.0-12.0); NEUTROPHILS # (AUTO) 9.5 /CMM (1.8-8.9); NEUTROPHILS % (AUTO) 72.6 % (43.0-81.0); PLATELET COUNT (AUTO) 215 /CMM (150-450); RDW COEFFICIENT OF VARIATION 18.6 (11.5-15.0); WHITE BLOOD COUNT (AUTO) 12.9 K/uL (4.3-11.0)
[2018-01-03] MEDS: ZINC SULFATE 220 MG CAPSULE PO SCH (09:25)
[2018-01-03] MEDS: MUPIROCIN OINT 2% 22 GM TUBE SCH ×2 (09:26→21:23)
--- NOTE | 2018-01-03 12:00 | NUR ---
GLASS FINISHER- RIGHT SIDED THORACENTESIS COMPLETED AT BEDSIDE. 900 ML OF FLUID REMOVED. PROCEDURE HAD TO BE STOPPED DUE TO PT C/O CHEST PAIN TOWARDS END OF PROCEDURE. SPECIMEN SENT TO LAB FOR CYTOLOGY. WILL CONTINUE TO MONITOR.
--- NOTE | 2018-01-03 12:40 | NUR ---
FINANCE ACCOUNTING INTERNSHIP- RADIOLOGIST CALLED AND STATED PT HAS DEVELOPED A SMALL PNEUMOTHORAX ON THE RIGHT SIDE POST THORACENTESIS. INFORMED DR. PAEZ AND OBTAINED ORDER TO REPEAT CHEST XRAY IN 2 HOURS. MD AWARE PT REMAINS ON 3L NC AND NO SOB OR DISTRESS PRESENT. ORDER PLACED. WILL CONTINUE TO MONITOR.
[2018-01-03] MEDS: SOD FERRIC GLUC 125 MG in IV NS 0.9% 100 ML IV SCH (15:17)
--- NOTE | 2018-01-03 19:45 | NUR ---
ICU/RECOVERY RN RECEIVED REPORT FROM DAY NURSE, PT APPEARS TO BE ALERT X 4. PT IS ON 2 LITERS N/C SATURATION IS 95%, NO DISTRESS SEEN AT THIS TIME, PT APPEARS COMFORTABLE. PT FEEDS SELF WITH LITTLE HELP. PT HAS F/C, DRAINING YELLOW URINE. PT HAS A FEW SKIN ISSUES THAT ARE ADDRESSED ON FLOW SHEET. RIGHT UPPER ARM PICC LINE. PT WAS TURNED AND REPOSITIONED FOR COMFORT AND CARE. WILL CONTINUE TO MONITOR THIS PT. PT IS S/P THORACENTESES TODAY, NO ACUTE DISTRESS SEEN, AND NO SOB SEEN.
[2018-01-03] MEDS: *INSULIN REGULAR(HUMULIN R)HUM 100 UNIT/ML VIAL SQ PRN (21:26)
--- NOTE | 2018-01-03 21:40 | NUR ---
ICU/HAT RENOVATOR PT'S BLOOD SUGAR WAS 212, PT WAS COVERED FOR THIS PER MD ORDERS. WILL CONTINUE TO MONITOR BLOOD SUGAR PROTOCOL AND MD ORDERERS.
--- NOTE | 2018-01-03 23:12 | NUR ---
PT RCVD ON 2L NC. PT PLACED ON BIPAP 15/5, 24, 40%. RN NOTIFIED. PT IS AWAKE AND ALERT, NO RESP DISTRESS. NOTICED REDNESS AND WOUND ON THE BRIDGE OF THE NOSE. RN AWARE. BIPAP ALARMS SET AND AUDIBLE. AMBU BAG AT BEDSIDE. BIPAP PLUGGED INTO RED OUTLET. BREATHING TX GIVEN PER MD'S ORDERED NO ADVERSE REACTION NOTED. WILL CONTINUE TO MONITOR.
[2018-01-04] VITALS (14 sets, daily range): BP systolic 114–134; BP diastolic 55–94
--- NOTE | 2018-01-04 00:15 | NUR ---
ICU/CALIBRATION TESTER WENT IN TO DO MIDNIGHT TEMPERATURE, HOWEVER WHEN IT CAME TO REPOSITIONING , PT REFUSED SAID NO. PT IS S/P THORACENTESES AND IS FAVORING THE OPPOSITE SIDE OF THIS PROCEDURE.
--- NOTE | 2018-01-04 01:47 | NUR ---
ICU/ROOF CEMENT AND PAINT MAKER CAME BACK FROM LUNCH WITH PT CALLING AND SCREAMING, PT SLIDING DOWN THE BED SAID SHE WAS "IN PAIN." PT WAS THEN GIVEN A BATH. AFTER BATH SAID SHE WAS HUNGRY AND "THAT NOBODY HAD FEED ME." REMINDED PT THAT AFTER ACCU CHECK WAS DONE WITH A BS OF 212 AND COVERED WITH 4 UNITS REGULAR INSULIN WAS GIVEN 2 JELLO. PT SAID SHE IS STILL HUNGRY, GAVE 1 APPLESAUCE AND GRAM CRACKERS. PT THEN SAID WE WERE "STARVING" HER. PT WAS REPOSITIONED TO THE OPPOSITE SIDE FROM WHICH SHE WAS FOUND AFTER BATH. PT THEN BEGAN TO YELL SAYING THAT "WE'RE TRYING TO KILL" HER AND THAT SHE NEEDS TO GO ON THE OPPOSITE SIDE. PT EXPLAINED THAT SHE NEEDS TO SHIFT FROM SIDE TO SIDE TO PROMOTE CIRCULATION TO THE BODY. PT REFUSED, DIFFICULT TO REASON WITH. CALL LIGHT WITHIN REACH.
--- NOTE | 2018-01-04 02:45 | NUR ---
ICU/MACHINE II COREMAKER PT GIVEN AM CARE ALONG WITH ORAL CARE, PT TOLERATED THIS WELL REMAINS ON CURRENT 02 2 LITERS VIA NC, SATURATION IS 98%. PT TURNED AND REPOSITIONED FOR COMFORT AND CARE.
[2018-01-04] MEDS: IPRATROPIUM NEB FS 0.5 MG/2.5 ML AMPUL.NEB NEB SCH ×6 (03:10→23:25)
[2018-01-04] MEDS: ALBUTEROL HALF STRENGTH 1.25 MG/3 ML VIAL.NEB NEB SCH ×6 (03:11→23:25)
[2018-01-04 04:58] LABS: BASOPHILS % (AUTO) 0.3 % (0.0-2.0); EOSINOPHILS % (AUTO) 1.5 % (0.0-6.0); HEMATOCRIT 28 % (33-45); HEMOGLOBIN 8.9 g/dL (11.5-14.8); LYMPHOCYTES # (AUTO) 1.8 /CMM (0.8-4.8); LYMPHOCYTES % (AUTO) 12.9 % (20.0-44.0); MEAN CORPUSCULAR HGB CONC 33 g/dl (31.0-36.0); MEAN CORPUSCULAR VOLUME 88 fL (82-100); MONOCYTES # (AUTO) 1.3 /CMM (0.1-1.30); MONOCYTES % (AUTO) 9.6 % (2.0-12.0); NEUTROPHILS # (AUTO) 10.3 /CMM (1.8-8.9); NEUTROPHILS % (AUTO) 75.7 % (43.0-81.0); PLATELET COUNT (AUTO) 236 /CMM (150-450); RDW COEFFICIENT OF VARIATION 19.4 (11.5-15.0); RED BLOOD CELL COUNT(AUTO) 3.11 MIL/uL (4.0-5.2); WHITE BLOOD COUNT (AUTO) 13.6 K/uL (4.3-11.0)
[2018-01-04 05:28] LABS: CALCIUM, SERUM 8.3 mg/dL (8.5-10.1); CARBON DIOXIDE 38 mmol/L (21-32); CHLORIDE 103 mmol/L (98-107); GLUCOSE 69 mg/dL (74-106); POTASSIUM 4.1 mmol/L (3.5-5.1); SODIUM SERUM 142 mmol/L (136-145); UREA NITROGEN, BLOOD 38 mg/dL (7-18)
--- NOTE | 2018-01-04 05:30 | NUR ---
ICU/MANAGER COSTING AM LABS DONE, WAIT ANY ABNORMAL LAB VALUES.
--- NOTE | 2018-01-04 07:05 | NUR ---
DIGITAL FORENSIC ANALYST- INITIAL NOTE RECEIVED PT RESTING IN BED. PT A/O X3, ABLE TO FOLLOW COMMANDS & MAKE NEEDS KNOWN. CURRENTLY ON 2L NC, RESPIRATIONS EVEN AND UNLABORED, NO SOB OR DISTRESS PRESENT. BEDSIDE MONITOR REVEALS V-PACING. LAND CATHETER PRESENT AND DRAINING TO GRAVITY. AMY MIDLINE RUNNING NS @ TKO. WILL CONTINUE TO MONITOR.
[2018-01-04] MEDS: BLOOD SUGAR DIAGNOSTIC 1 EACH STRIP VI SCH ×4 (07:36→22:00)
[2018-01-04] MEDS: LEVOTHYROXINE SODIUM 100 MCG TABLET PO SCH (08:38)
[2018-01-04] MEDS: LOSARTAN POTASSIUM 50 MG TABLET PO SCH (08:38)
[2018-01-04] MEDS: PROSOURCE / PROSTAT (PYXIS) 30 ML UDC PO SCH (08:38)
[2018-01-04] MEDS: MUPIROCIN OINT 2% 22 GM TUBE SCH ×2 (08:39→20:26)
[2018-01-04] MEDS: MULTIVITAMINS,THERAGRAN 1 UDTAB TABLET PO SCH (08:39)
[2018-01-04] MEDS: ASCORBIC ACID 500 MG TABLET PO SCH (08:39)
[2018-01-04] MEDS: METOPROLOL TARTRATE 25 MG TABLET PO SCH ×2 (08:39→16:40)
[2018-01-04] MEDS: CLOPIDOGREL BISULFATE 75 MG TABLET PO SCH (08:39)
[2018-01-04] MEDS: FOLIC ACID 1 MG TABLET PO SCH (08:39)
[2018-01-04] MEDS: DOCUSATE SODIUM 100 MG CAPSULE PO SCH (08:39)
[2018-01-04] MEDS: LACTOBACILLUS RHAMNOSUS GG 1 EACH CAP.SPRINK PO SCH ×2 (08:39→16:39)
[2018-01-04] MEDS: ZINC SULFATE 220 MG CAPSULE PO SCH (08:39)
[2018-01-04] MEDS: NYSTATIN TOP POWDER 15 GM BOTTLE TP SCH ×2 (08:40→16:40)
[2018-01-04] MEDS: Z GUARD REMEDY 2 OZ OINT TP SCH ×2 (08:40→20:30)
[2018-01-04] MEDS ORDERED: BISACODYL SUPP (10 MG) 10 MG/SUPP.RECT SUPP.RECT RC PRN (10:00)
[2018-01-04] MEDS: NITROFURANTOIN/NITROFURAN MAC 100 MG CAPSULE PO SCH ×2 (10:23→20:25)
--- NOTE | 2018-01-04 10:40 | NUR ---
STEMHOLE BORER AND TOPPER- REPORT GIVEN TO CHARLEEN ACEVEDO. PT TO TRANSFER TO [facility], ROOM 106. 1045- PT TRANSFERRED TO ROOM 106. ALL BELONGINGS SENT WITH PT. PT'S DAUGHTER AWARE OF TRANSFER.
--- NOTE | 2018-01-04 11:00 | NUR ---
ONION FARMER NOTE RECEIVED PATIENT FROM ICU ALERT WITH CONFUSION ,ON R TELE MONITOR V PACING HR 80, ON 2L NA NO SOB NOTED BED IN LOWEST AND LOCKED POSITION , ON KCI MATRES, WITH LAND CATH TO GRAVITY WITH YELLOW COLOR URINE, WILL CONT TO MONITOR CLOSELY ,NO SOB AT THIS TIME
[2018-01-04] MEDS: INSULIN REGULAR, HUMAN 100 UNIT/ML 3 ML VIAL SQ PRN ×2 (12:17→16:44)
--- NOTE | 2018-01-04 12:30 | NUR ---
JEWELRY MAKING INSTRUCTOR NOTE UP ON CHAIR NOT IN ACUTE DISTRESS
[2018-01-04] MEDS ORDERED: BUMETANIDE INJ 4 MG in IV D5W 24 ML IV ONE (14:00)
[2018-01-04] MEDS: SOD FERRIC GLUC 125 MG in IV NS 0.9% 100 ML IV SCH (14:02)
--- NOTE | 2018-01-04 14:15 | NUR ---
TOOL DESIGN DRAFTER NOTE ALL NEEDS ATTENDED.BACK TO BED
--- NOTE | 2018-01-04 15:03 | NUR ---
SOFTWARE SYSTEMS ARCHITECT NOTE CALLED TO PHARMACY FOR BUMEX S X3 STILL NOT DELIVERED WILL F\U
[2018-01-04] MEDS: GLUCERNA SHAKE 237 ML CAN PO SCH (17:41)
--- NOTE | 2018-01-04 18:06 | NUR ---
LOCKSMITH NOTE CONT ON BUMEX DRIP ,ALL NEEDS ATTENDED ,HAVING DINNER , ABLE TO EA SELF, WILL CONT TO MONITOR CLOSELY
--- NOTE | 2018-01-04 20:20 | NUR ---
RN NOTES IN BED SLEEPING COMFORTABLY WITH NO RESPIRATORY DISTRESS OR SHORTNESS OF BREATH. BREATHING EVEN AND UNLABORED. NO PHYSICAL MANIFESTATION OF PAIN OR DISCOMFORT. LAND CATH IN PLACE AND INTACT DRAINING CLEAR YELLOW WITH NO FOUL ODOR URINE. KEPT CLEAN AND DRY. WILL CONTINUE TO MONITOR.
[2018-01-04] MEDS: Z GUARD REMEDY 2 OZ OINT TP PRN (20:26)
[2018-01-04] MEDS: *INSULIN REGULAR(HUMULIN R)HUM 100 UNIT/ML VIAL SQ PRN (23:32)
[2018-01-05] VITALS: BP 127/58
[2018-01-05] MEDS: ALBUTEROL HALF STRENGTH 1.25 MG/3 ML VIAL.NEB NEB SCH ×6 (03:13→23:08)
[2018-01-05] MEDS: IPRATROPIUM NEB FS 0.5 MG/2.5 ML AMPUL.NEB NEB SCH ×6 (03:13→23:08)
[2018-01-05 04:00] VITALS: BP 110/47
[2018-01-05] MEDS: INSULIN REGULAR, HUMAN 100 UNIT/ML 3 ML VIAL SQ PRN ×4 (06:45→22:13)
[2018-01-05] MEDS: BLOOD SUGAR DIAGNOSTIC 1 EACH STRIP VI SCH ×4 (06:45→21:37)
--- NOTE | 2018-01-05 07:25 | NUR ---
RN NOTES NO SIGNIFICANT CHANGE OF CONDITION, ALERT AND ORIENTED WITH EPISODES OF FORGETFULNESS. NO COMPLAINT OF PAIN OR DISCOMFORT. NO DISTRESS NOTED. WILL ENDORSE TO AM SHIFT FOR CONTINUITY OF CARE.
--- NOTE | 2018-01-05 07:30 | NUR ---
DISTRICT PLANT SUPERVISOR INITIAL NOTES RECEIVED PATIENT IN BED, ALERT WITH CONFUSION, ON NASAL CANNULA 2L SATURATING 95% O2 SAT, ON TELE MONITORING V PACING 80 SR, DIAPER AND FC TO GRAVITY DRAINING YELLOW URINE, IV AMY MIDLINE, CLEAN AND PATENT, BED IN LOW AND LOCKED POSITION CALL LIGHT WITHIN REACH, WILL CONTINUE TO MONITOR.
[2018-01-05 08:00] VITALS: BP 126/64
[2018-01-05 08:20] LABS: CARBON DIOXIDE 39 mmol/L (21-32); CHLORIDE 103 mmol/L (98-107); GLUCOSE 159 mg/dL (74-106); POTASSIUM 4.1 mmol/L (3.5-5.1); SODIUM SERUM 144 mmol/L (136-145); UREA NITROGEN, BLOOD 34 mg/dL (7-18)
[2018-01-05 08:37] LABS: BASOPHILS # (AUTO) 0.1 /CMM (0.0-0.2); BASOPHILS % (AUTO) 0.5 % (0.0-2.0); HEMATOCRIT 28 % (33-45); HEMOGLOBIN 8.9 g/dL (11.5-14.8); LYMPHOCYTES # (AUTO) 1.9 /CMM (0.8-4.8); LYMPHOCYTES % (AUTO) 16.3 % (20.0-44.0); MEAN CORPUSCULAR HGB CONC 32 g/dl (31.0-36.0); MEAN CORPUSCULAR VOLUME 90 fL (82-100); MONOCYTES # (AUTO) 1.2 /CMM (0.1-1.30); MONOCYTES % (AUTO) 10.4 % (2.0-12.0); NEUTROPHILS # (AUTO) 8.4 /CMM (1.8-8.9); NEUTROPHILS % (AUTO) 70.8 % (43.0-81.0); PLATELET COUNT (AUTO) 228 /CMM (150-450); RDW COEFFICIENT OF VARIATION 19.9 (11.5-15.0); RED BLOOD CELL COUNT(AUTO) 3.09 MIL/uL (4.0-5.2); WHITE BLOOD COUNT (AUTO) 11.9 K/uL (4.3-11.0)
[2018-01-05] MEDS: FUROSEMIDE 100 MG/10 ML VIAL IV SCH ×3 (09:01→16:45)
[2018-01-05] MEDS: CLOPIDOGREL BISULFATE 75 MG TABLET PO SCH (09:01)
[2018-01-05] MEDS: ZINC SULFATE 220 MG CAPSULE PO SCH (09:01)
[2018-01-05] MEDS: NITROFURANTOIN/NITROFURAN MAC 100 MG CAPSULE PO SCH ×2 (09:01→21:31)
[2018-01-05] MEDS: METOLAZONE 2.5 MG TABLET PO SCH (09:01)
[2018-01-05] MEDS: ASCORBIC ACID 500 MG TABLET PO SCH (09:01)
[2018-01-05] MEDS: MULTIVITAMINS,THERAGRAN 1 UDTAB TABLET PO SCH (09:01)
[2018-01-05] MEDS: FOLIC ACID 1 MG TABLET PO SCH (09:02)
[2018-01-05] MEDS: DOCUSATE SODIUM 100 MG CAPSULE PO SCH (09:02)
[2018-01-05] MEDS: LACTOBACILLUS RHAMNOSUS GG 1 EACH CAP.SPRINK PO SCH ×2 (09:02→16:45)
[2018-01-05] MEDS: METOPROLOL TARTRATE 25 MG TABLET PO SCH ×2 (09:02→16:45)
[2018-01-05] MEDS: LEVOTHYROXINE SODIUM 100 MCG TABLET PO SCH (09:02)
[2018-01-05] MEDS: LOSARTAN POTASSIUM 50 MG TABLET PO SCH (09:03)
[2018-01-05] MEDS: PROSOURCE / PROSTAT (PYXIS) 30 ML UDC PO SCH (09:03)
[2018-01-05] MEDS: Z GUARD REMEDY 2 OZ OINT TP SCH (09:04)
[2018-01-05] MEDS: Z GUARD REMEDY 2 OZ OINT TP PRN ×2 (09:04→21:33)
[2018-01-05] MEDS: MUPIROCIN OINT 2% 22 GM TUBE SCH ×2 (09:04→21:33)
[2018-01-05] MEDS: NYSTATIN TOP POWDER 15 GM BOTTLE TP SCH ×2 (09:05→16:42)
[2018-01-05] MEDS: GLUCERNA SHAKE 237 ML CAN PO SCH ×2 (09:35→16:40)
[2018-01-05 12:00] VITALS: BP 118/53
[2018-01-05 16:00] VITALS: BP 115/56
--- NOTE | 2018-01-05 18:39 | NUR ---
INSTRUCTOR LOOPING END NOTES PATIENT RESTING IN BED, ALL NEEDS MET, PATIENT MORE AWAKE AND ALERT AT THIS TIME, WILL ENDORSE TO LUDLOW MACHINE OPERATOR FOR CONTINUITY OF CARE.
[2018-01-05 20:00] VITALS: BP 136/66
--- NOTE | 2018-01-05 20:00 | NUR ---
DELVIN RN NOTES RECEIVED BEDSIDE REPORT. PATIENT IN BED, A/O X2-3 WITH CONFUSION EPISODES , ON NASAL CANNULA 2L SATURATING 100% O2 SAT, ON TELE MONITORING V PACING 80 SR. NO SOB, NO LABORED BREATHING NOTED AT THIS TIME. DIAPER AND FC IN PLACE TO GRAVITY DRAINING YELLOW URINE, IV AMY MIDLINE, CLEAN, INTACT AND PATENT, BED IN LOW AND LOCKED POSITION CALL LIGHT WITHIN REACH, WILL CONTINUE TO MONITOR.
[2018-01-06] VITALS: BP_SYST 119; BP_SYST 120; BP_DIAS 50; BP_DIAS 51
[2018-01-06] MEDS: ALBUTEROL HALF STRENGTH 1.25 MG/3 ML VIAL.NEB NEB SCH ×5 (03:26→19:28)
[2018-01-06] MEDS: IPRATROPIUM NEB FS 0.5 MG/2.5 ML AMPUL.NEB NEB SCH ×5 (03:26→19:28)
[2018-01-06 04:00] VITALS: BP 121/61
[2018-01-06 06:33] LABS: ALANINE AMINOTRANSFERASE 15 U/L (12-78); ALBUMIN 2.5 g/dL (3.4-5.0); ALKALINE PHOSPHATASE 90 U/L (46-116); ASPARTATE AMINOTRANSFERASE 9 U/L (15-37); BILIRUBIN,TOTAL 0.4 mg/dL (0.2-1.0); CALCIUM, SERUM 8.5 mg/dL (8.5-10.1); CHLORIDE 95 mmol/L (98-107); GLUCOSE 193 mg/dL (74-106); MAGNESIUM 1.6 mg/dL (1.8-2.4); PHOSPHORUS 2.7 mg/dL (2.5-4.9); POTASSIUM 3.5 mmol/L (3.5-5.1); SODIUM SERUM 141 mmol/L (136-145); UREA NITROGEN, BLOOD 37 mg/dL (7-18)
[2018-01-06 06:40] LABS: BASOPHILS % (AUTO) 0.2 % (0.0-2.0); EOSINOPHILS % (AUTO) 2.2 % (0.0-6.0); HEMATOCRIT 28 % (33-45); HEMOGLOBIN 9.1 g/dL (11.5-14.8); LYMPHOCYTES # (AUTO) 1.8 /CMM (0.8-4.8); LYMPHOCYTES % (AUTO) 15.3 % (20.0-44.0); MEAN CORPUSCULAR HGB CONC 32 g/dl (31.0-36.0); MEAN CORPUSCULAR VOLUME 90 fL (82-100); MONOCYTES # (AUTO) 1.1 /CMM (0.1-1.30); MONOCYTES % (AUTO) 9.2 % (2.0-12.0); NEUTROPHILS # (AUTO) 8.5 /CMM (1.8-8.9); NEUTROPHILS % (AUTO) 73.1 % (43.0-81.0); PLATELET COUNT (AUTO) 242 /CMM (150-450); RDW COEFFICIENT OF VARIATION 21.2 (11.5-15.0); RED BLOOD CELL COUNT(AUTO) 3.14 MIL/uL (4.0-5.2); WHITE BLOOD COUNT (AUTO) 11.6 K/uL (4.3-11.0)
--- NOTE | 2018-01-06 07:00 | NUR ---
DELVIN RN NOTES NO ACUTE CHANGES NOTED DURING MY SHIFT, PT IS STABLE, NO LABORED BREATHING, NO SOB AT THIS TIME. PATIENT CARE WILL BE ENFORCED TO AM NURSE.
--- NOTE | 2018-01-06 07:30 | NUR ---
TELEVISION REPAIRMAN INITIAL NOTES RECEIVED PATIENT IN BED SLEEPING, EASY TO AROUSE, ALERT WITH CONFUSION, ON NASAL CANNULA 3L SATURATING 95% O2 SAT, ON TELE MONITORING V PACING 81 SR, DIAPER AND FC TO GRAVITY DRAINING YELLOW URINE, IV AMY MIDLINE, CLEAN AND PATENT, BED IN LOW AND LOCKED POSITION CALL LIGHT WITHIN REACH, WILL CONTINUE TO MONITOR.
[2018-01-06 08:00] VITALS: BP 124/70
[2018-01-06 08:11] LABS: CARBON DIOXIDE 43 mmol/L (21-32)
[2018-01-06] MEDS: BLOOD SUGAR DIAGNOSTIC 1 EACH STRIP VI SCH ×4 (08:24→22:27)
[2018-01-06] MEDS: GLUCERNA SHAKE 237 ML CAN PO SCH ×2 (08:29→17:00)
[2018-01-06] MEDS: METOPROLOL TARTRATE 25 MG TABLET PO SCH ×2 (09:15→17:30)
[2018-01-06] MEDS: NITROFURANTOIN/NITROFURAN MAC 100 MG CAPSULE PO SCH ×2 (09:15→22:20)
[2018-01-06] MEDS: ZINC SULFATE 220 MG CAPSULE PO SCH (09:15)
[2018-01-06] MEDS: MULTIVITAMINS,THERAGRAN 1 UDTAB TABLET PO SCH (09:15)
[2018-01-06] MEDS: DOCUSATE SODIUM 100 MG CAPSULE PO SCH (09:15)
[2018-01-06] MEDS: FOLIC ACID 1 MG TABLET PO SCH (09:15)
[2018-01-06] MEDS: ASCORBIC ACID 500 MG TABLET PO SCH (09:15)
[2018-01-06] MEDS: CLOPIDOGREL BISULFATE 75 MG TABLET PO SCH (09:15)
[2018-01-06] MEDS: LACTOBACILLUS RHAMNOSUS GG 1 EACH CAP.SPRINK PO SCH ×2 (09:16→17:29)
[2018-01-06] MEDS: METOLAZONE 2.5 MG TABLET PO SCH (09:16)
[2018-01-06] MEDS: LEVOTHYROXINE SODIUM 100 MCG TABLET PO SCH (09:16)
[2018-01-06] MEDS: LOSARTAN POTASSIUM 50 MG TABLET PO SCH (09:16)
[2018-01-06] MEDS: NYSTATIN TOP POWDER 15 GM BOTTLE TP SCH ×2 (09:17→17:29)
[2018-01-06] MEDS: PROSOURCE / PROSTAT (PYXIS) 30 ML UDC PO SCH (09:17)
[2018-01-06] MEDS: MUPIROCIN OINT 2% 22 GM TUBE SCH ×2 (09:17→22:20)
[2018-01-06] MEDS: Z GUARD REMEDY 2 OZ OINT TP PRN (09:18)
[2018-01-06] MEDS: INSULIN REGULAR, HUMAN 100 UNIT/ML 3 ML VIAL SQ PRN ×3 (09:23→17:31)
[2018-01-06] MEDS ORDERED: acetaZOLAMIDE SODIUM 500 MG/VIAL VIAL IV ONE (10:00)
[2018-01-06 12:00] VITALS: BP 123/64
--- NOTE | 2018-01-06 12:15 | NUR ---
VASCULAR SURGEON NOTES REPORT GIVEN TO CURTIS KESSLER FOR CONTINUITY OF CARE.
[2018-01-06] MEDS ORDERED: MAGNESIUM OXIDE 400 MG TABLET PO ONE (13:00)
[2018-01-06 16:00] VITALS: BP 131/65
--- NOTE | 2018-01-06 18:44 | NUR ---
RN NOTE: PATIENT REMAINS ALERT AWAKE ORIENTED X4. ON OXYGEN THERAPY VIA NC. DENIES PAIN/DISCOMFORT. SAFETY MEASURES OBSERVED. MIDLINE INTACT, DRESSING DRY & CLEAN. CALL LIGHT WITHIN REACH. LAND CATH INTACT, DRAINING WELL WITH GRAVITY. CALL LIGHT WITHIN REACH. WILL ENDORSE TO PM SHIFT RN FOR CONTINUITY OF CARE. -[facility] EVALUATION CHEMICAL SUPERVISOR MADE AWARE BY SHIFT VALVE TESTER.
[2018-01-06 20:00] VITALS: BP 119/59
--- NOTE | 2018-01-06 20:00 | NUR ---
telecom network manager notes received pts in bed awake and responsive , on tele v pacing on the monitor , no sob no distress noted , all needs attended too call light within reach v/s stable afebrile all due meds given as ordered , denies pain at this time kept pts clean dry and comfortable . pts remain on 3 liters of o2 via nc sating 99% will continue to monitor pts .
--- NOTE | 2018-01-06 22:00 | NUR ---
tle rn notes blood sugar for 10pm is 149 mg/dl =2 units of regular insulin given per sliding scale .will check bs again in am.pts on po diet.
[2018-01-06] MEDS: *INSULIN REGULAR(HUMULIN R)HUM 100 UNIT/ML VIAL SQ PRN (22:25)
[2018-01-07] VITALS: BP 119/50
[2018-01-07] MEDS: ALBUTEROL HALF STRENGTH 1.25 MG/3 ML VIAL.NEB NEB SCH ×8 (00:05→23:31)
[2018-01-07] MEDS: IPRATROPIUM NEB FS 0.5 MG/2.5 ML AMPUL.NEB NEB SCH ×8 (00:05→23:31)
--- NOTE | 2018-01-07 00:27 | NUR ---
telehealth coordinator notes bipap / applied by rt tolerated by pts no sob no distress noted will continue to monitor pts.
--- NOTE | 2018-01-07 02:00 | NUR ---
telecommunications network engineer notes pts was off bipap as requested by pts . no sob no distress noted pts place back to nc at 3 liters of o2 well tolerated by pts, no sob no distress noted ,will endorse to rn day shift for continuity of care.
[2018-01-07 04:00] VITALS: BP 132/61
[2018-01-07 07:47] LABS: BASOPHILS # (AUTO) 0.1 /CMM (0.0-0.2); BASOPHILS % (AUTO) 0.5 % (0.0-2.0); EOSINOPHILS % (AUTO) 2.3 % (0.0-6.0); HEMATOCRIT 30 % (33-45); HEMOGLOBIN 9.6 g/dL (11.5-14.8); LYMPHOCYTES # (AUTO) 2.1 /CMM (0.8-4.8); LYMPHOCYTES % (AUTO) 18.3 % (20.0-44.0); MEAN CORPUSCULAR HGB CONC 32 g/dl (31.0-36.0); MEAN CORPUSCULAR VOLUME 90 fL (82-100); MONOCYTES # (AUTO) 1.2 /CMM (0.1-1.30); MONOCYTES % (AUTO) 10.3 % (2.0-12.0); NEUTROPHILS # (AUTO) 7.8 /CMM (1.8-8.9); NEUTROPHILS % (AUTO) 68.6 % (43.0-81.0); PLATELET COUNT (AUTO) 235 /CMM (150-450); RDW COEFFICIENT OF VARIATION 21.2 (11.5-15.0); RED BLOOD CELL COUNT(AUTO) 3.36 MIL/uL (4.0-5.2); WHITE BLOOD COUNT (AUTO) 11.3 K/uL (4.3-11.0)
[2018-01-07 08:00] VITALS: BP 127/64
[2018-01-07] MEDS: LEVOTHYROXINE SODIUM 100 MCG TABLET PO SCH (08:01)
[2018-01-07] MEDS: BLOOD SUGAR DIAGNOSTIC 1 EACH STRIP VI SCH ×4 (08:01→21:39)
[2018-01-07] MEDS: GLUCERNA SHAKE 237 ML CAN PO SCH ×2 (08:03→17:00)
[2018-01-07] MEDS: MULTIVITAMINS,THERAGRAN 1 UDTAB TABLET PO SCH (08:04)
[2018-01-07] MEDS: NITROFURANTOIN/NITROFURAN MAC 100 MG CAPSULE PO SCH ×2 (08:05→21:57)
[2018-01-07] MEDS: ZINC SULFATE 220 MG CAPSULE PO SCH (08:05)
[2018-01-07] MEDS: FOLIC ACID 1 MG TABLET PO SCH (08:05)
[2018-01-07] MEDS: CLOPIDOGREL BISULFATE 75 MG TABLET PO SCH (08:05)
[2018-01-07] MEDS: ASCORBIC ACID 500 MG TABLET PO SCH (08:05)
[2018-01-07] MEDS: PROSOURCE / PROSTAT (PYXIS) 30 ML UDC PO SCH (08:05)
[2018-01-07] MEDS: LOSARTAN POTASSIUM 50 MG TABLET PO SCH (08:06)
[2018-01-07] MEDS: DOCUSATE SODIUM 100 MG CAPSULE PO SCH (08:06)
[2018-01-07] MEDS: METOPROLOL TARTRATE 25 MG TABLET PO SCH ×2 (08:06→17:34)
[2018-01-07] MEDS: INSULIN REGULAR, HUMAN 100 UNIT/ML 3 ML VIAL SQ PRN ×3 (08:08→17:40)
[2018-01-07 08:10] LABS: CALCIUM, SERUM 8.8 mg/dL (8.5-10.1); CARBON DIOXIDE 38 mmol/L (21-32); CHLORIDE 98 mmol/L (98-107); CREATININE 0.9 mg/dL (0.6-1.3); GLUCOSE 153 mg/dL (74-106); POTASSIUM 3.5 mmol/L (3.5-5.1); SODIUM SERUM 141 mmol/L (136-145); UREA NITROGEN, BLOOD 31 mg/dL (7-18)
[2018-01-07] MEDS: LACTOBACILLUS RHAMNOSUS GG 1 EACH CAP.SPRINK PO SCH ×2 (08:12→17:34)
[2018-01-07] MEDS: NYSTATIN TOP POWDER 15 GM BOTTLE TP SCH ×2 (08:14→17:36)
[2018-01-07] MEDS: MUPIROCIN OINT 2% 22 GM TUBE SCH ×2 (08:14→21:56)
[2018-01-07 09:55] LABS: ABG BASE EXCESS 14.5 mmol/L; ABG OXYGEN SATURATION 98.1 % (92.0-98.5); ABG PCO2 56.9 mmHg (35.0-45.0); ABG PH 7.469 (7.350-7.450); ABG PO2 132.3 mmHg (75.0-100.0); AaDO2 0.2 mmHg; COHb 0.3 % (0.5-1.5); O2Hb 96.8 % (94.0-97.0); SITE, ABG Right Radial
[2018-01-07] MEDS ORDERED: acetaZOLAMIDE SODIUM 500 MG/VIAL VIAL IV ONE (10:00)
[2018-01-07] MEDS ORDERED: POTASSIUM CHLORIDE 20 MEQ TAB.PRT.SR PO SCH (10:00)
[2018-01-07] MEDS: POTASSIUM CHLORIDE 20 MEQ POWDER PACKET GT SCH ×2 (11:07→12:04)
[2018-01-07 12:00] VITALS: BP 112/63
[2018-01-07] MEDS: ACETAMINOPHEN 325 MG TABLET PO PRN (12:49)
[2018-01-07 16:00] VITALS: BP 111/52
[2018-01-07 20:00] VITALS: BP 99/58
[2018-01-07] MEDS: *INSULIN REGULAR(HUMULIN R)HUM 100 UNIT/ML VIAL SQ PRN (21:45)
[2018-01-08] VITALS: BP 120/64
[2018-01-08] MEDS: IPRATROPIUM NEB FS 0.5 MG/2.5 ML AMPUL.NEB NEB SCH ×4 (02:55→15:24)
[2018-01-08] MEDS: ALBUTEROL HALF STRENGTH 1.25 MG/3 ML VIAL.NEB NEB SCH ×4 (02:55→15:24)
[2018-01-08 04:00] VITALS: BP 109/55
[2018-01-08 06:53] LABS: BASOPHILS # (AUTO) 0.2 /CMM (0.0-0.2); BASOPHILS % (AUTO) 1.6 % (0.0-2.0); EOSINOPHILS % (AUTO) 1.8 % (0.0-6.0); HEMATOCRIT 29 % (33-45); HEMOGLOBIN 9.2 g/dL (11.5-14.8); LYMPHOCYTES # (AUTO) 1.8 /CMM (0.8-4.8); MEAN CORPUSCULAR HGB CONC 32 g/dl (31.0-36.0); MEAN CORPUSCULAR VOLUME 90 fL (82-100); MONOCYTES # (AUTO) 1.1 /CMM (0.1-1.30); MONOCYTES % (AUTO) 10.6 % (2.0-12.0); NEUTROPHILS # (AUTO) 6.8 /CMM (1.8-8.9); PLATELET COUNT (AUTO) 219 /CMM (150-450); RDW COEFFICIENT OF VARIATION 21.4 (11.5-15.0); RED BLOOD CELL COUNT(AUTO) 3.22 MIL/uL (4.0-5.2)
[2018-01-08 07:04] LABS: CALCIUM, SERUM 8.5 mg/dL (8.5-10.1); CARBON DIOXIDE 39 mmol/L (21-32); CHLORIDE 99 mmol/L (98-107); CREATININE 1.3 mg/dL (0.6-1.3); GLUCOSE 177 mg/dL (74-106); SODIUM SERUM 141 mmol/L (136-145); UREA NITROGEN, BLOOD 45 mg/dL (7-18)
--- NOTE | 2018-01-08 07:30 | NUR ---
RN NOTE RECEIVED PT ON BED, SLEEPY, ON NC 2L/MIN, ON TELE MONITOR V PACING 83 BPM, IV IN PLACE, LAND IN PLACE, URINE YELLOW CLEAR, PER REPORT PT REMAINE ON BIPAP FOR 8HR DURING THE NIGHT. CALL LIGHT WITHIN REACH, WILL MONITOR.
[2018-01-08 08:00] VITALS: BP 118/54
[2018-01-08] MEDS: NITROFURANTOIN/NITROFURAN MAC 100 MG CAPSULE PO SCH (08:07)
[2018-01-08] MEDS: LEVOTHYROXINE SODIUM 100 MCG TABLET PO SCH (08:07)
[2018-01-08] MEDS: ACETAMINOPHEN 325 MG TABLET PO PRN (08:07)
[2018-01-08] MEDS: BLOOD SUGAR DIAGNOSTIC 1 EACH STRIP VI SCH ×3 (08:07→18:06)
[2018-01-08] MEDS: CLOPIDOGREL BISULFATE 75 MG TABLET PO SCH (08:08)
[2018-01-08] MEDS: MULTIVITAMINS,THERAGRAN 1 UDTAB TABLET PO SCH (08:08)
[2018-01-08] MEDS: METOPROLOL TARTRATE 25 MG TABLET PO SCH ×2 (08:08→17:00)
[2018-01-08] MEDS: ZINC SULFATE 220 MG CAPSULE PO SCH (08:08)
[2018-01-08] MEDS: LACTOBACILLUS RHAMNOSUS GG 1 EACH CAP.SPRINK PO SCH ×2 (08:08→17:00)
[2018-01-08] MEDS: LOSARTAN POTASSIUM 50 MG TABLET PO SCH (08:08)
[2018-01-08] MEDS: FOLIC ACID 1 MG TABLET PO SCH (08:08)
[2018-01-08] MEDS: ASCORBIC ACID 500 MG TABLET PO SCH (08:08)
[2018-01-08] MEDS: PROSOURCE / PROSTAT (PYXIS) 30 ML UDC PO SCH (08:09)
[2018-01-08] MEDS: DOCUSATE SODIUM 100 MG CAPSULE PO SCH (08:09)
[2018-01-08] MEDS: GLUCERNA SHAKE 237 ML CAN PO SCH ×2 (08:10→17:00)
[2018-01-08] MEDS: NYSTATIN TOP POWDER 15 GM BOTTLE TP SCH ×2 (08:10→17:00)
[2018-01-08] MEDS: MUPIROCIN OINT 2% 22 GM TUBE SCH (08:10)
[2018-01-08] MEDS: *INSULIN REGULAR(HUMULIN R)HUM 100 UNIT/ML VIAL SQ PRN (08:22)
[2018-01-08 12:00] VITALS: BP 151/58
[2018-01-08] MEDS: INSULIN REGULAR, HUMAN 100 UNIT/ML 3 ML VIAL SQ PRN (12:41)
[2018-01-08 15:59] VITALS: BP 102/47
[2018-01-08 16:00] VITALS: BP 102/47
--- NOTE | 2018-01-08 18:14 | NUR ---
RN NOTE PT DISCHARGED BACK TO [facility] IN ST[facility] CONDITION, IV REMOVED, PT HAS NO LAND, DISCHARGE INSTRUCTIONS GIVEN TO PATIENT, EXIT CARE DONE, PICTURES TAKEN, TEACHING DONE TO PT, PT VERBALIZED UNDERSTANDING, BELONGINGS LIST SIGNED BY THE PT, BELONGINGS GIVEN TO PT. REPRT GIVEN TO CURTIS YEAGER AT [facility].
[2018-02-06] MEDS ORDERED: CRAN3875 PO (13:06)
[2018-02-06] MEDS ORDERED: CRAN425C6 PO (13:06)
== END 2018-01-08 18:15 | DRG 194 ==
LOC: ER 21:41 → TELE 23:56 → ICU 12-29 08:10 → TELE-TD 12-31 17:20 → ICU 01-01 14:16 → TELE1 01-04 10:41 → MEDSG1 01-08 12:43
PROVIDERS: ADMIT Internal Medicine; ATTEND Internal Medicine
PROC: 5A09457 Assistance with Respiratory Ventilation, 24-96 Consecutive Hours, Continuous Positive Airway Pressure (ICD-10-PCS; principal; 2017-12-29)
PROC: 05HY33Z Insertion of Infusion Device into Upper Vein, Percutaneous Approach (ICD-10-PCS; principal; 2017-12-29)
PROC: 5A09457 Assistance with Respiratory Ventilation, 24-96 Consecutive Hours, Continuous Positive Airway Pressure (ICD-10-PCS; 2018-01-01)
PROC: 0W9B3ZZ Drainage of Left Pleural Cavity, Percutaneous Approach (ICD-10-PCS; 2018-01-02)
PROC: 0W993ZZ Drainage of Right Pleural Cavity, Percutaneous Approach (ICD-10-PCS; 2018-01-03)
DX: I11.0 Hypertensive heart disease with heart failure (principal); J96.21 Acute and chronic respiratory failure with hypoxia; E43 Unspecified severe protein-calorie malnutrition; G92 Toxic encephalopathy; J90 Pleural effusion, not elsewhere classified; I50.33 Acute on chronic diastolic (congestive) heart failure; E11.22 Type 2 diabetes mellitus with diabetic chronic kidney disease; N39.0 Urinary tract infection, site not specified; M81.0 Age-related osteoporosis without current pathological fracture; N18.9 Chronic kidney disease, unspecified; E78.5 Hyperlipidemia, unspecified; I70.90 Unspecified atherosclerosis; E66.9 Obesity, unspecified; Z68.33 Body mass index [BMI] 33.0-33.9, adult; F03.90 Unspecified dementia, unspecified severity, without behavioral disturbance, psychotic disturbance, mood disturbance, and anxiety; Z96.649 Presence of unspecified artificial hip joint; F32.9 Major depressive disorder, single episode, unspecified; Z88.0 Allergy status to penicillin; I25.10 Atherosclerotic heart disease of native coronary artery without angina pectoris; Z95.810 Presence of automatic (implantable) cardiac defibrillator; E87.5 Hyperkalemia; F09 Unspecified mental disorder due to known physiological condition; Z95.1 Presence of aortocoronary bypass graft; Z22.322 Carrier or suspected carrier of Methicillin resistant Staphylococcus aureus; J96.22 Acute and chronic respiratory failure with hypercapnia; J44.1 Chronic obstructive pulmonary disease with (acute) exacerbation; L30.4 Erythema intertrigo; L98.8 Other specified disorders of the skin and subcutaneous tissue; D63.1 Anemia in chronic kidney disease; E87.3 Alkalosis; E83.42 Hypomagnesemia; E87.6 Hypokalemia; E89.0 Postprocedural hypothyroidism; I34.0 Nonrheumatic mitral (valve) insufficiency
CPT/HCPCS: 36415; 36569; 36600; 71045-TC; 76942-TC; 80048-TC; 80053-TC; 80061-TC; 80076-TC; 81000-TC; 82728-TC; 82803-TC; 82962-TC; 83540-TC; 83605-TC; 83735-TC; 83880; 84100-TC; 84484-TC; 85025-TC; 85730-TC; 87040-TC; 87070-TC; 87075-TC; 87081-TC; 87086-TC; 87102-TC; 87186-TC; 88305-TC; 88312-TC; 89051-TC; 94762-TC; 94799-TC; 99082-TC; A4216; A4606; A6253; A6403; J1120; J1650; J1815; J1940; J2185; J2916; J3475; J3480; J3490; J7030; J7050; J7060; Z7610